=== PATIENT | male | born 1965 | race African-American/Black ===

== ENCOUNTER 2016-12-29 21:14 | Inpatient (IN) | payer OTHER ==
[~2016-12-29] VITALS: Ht 175.3 cm; Wt 146.5 kg
[~2016-12-29 21:14] MED LIST: ALBU18HF2 IH; ALLO300T2 PO; ATOR40TA70 PO; CHOL20004 PO; COLC0.6T66 PO; FLUT1DIS INH; FURO-151 PO; IPRA0.2S51 NEB; LISI-604 PO; MAGN500C4 PO; MONT10TA24 PO; OMEP20CA10 PO; P20 PO
[2016-12-29] MEDS ORDERED: METHYLPREDNISOLONE SOD SUCC 125 MG/2 ML VIAL IV STA (21:35)
[2016-12-29] MEDS ORDERED: ASPIRIN 81MG TABLET PO STA (21:35)
[2016-12-29] MEDS ORDERED: FUROSEMIDE 40MG/4ML VIAL IV STA (21:35)
[2016-12-29] MEDS ORDERED: ONDANSETRON HCL 4MG/2ML VIAL IV STA (21:35)
[2016-12-29] MEDS ORDERED: MORPHINE SULFATE 4 MG/ML CPJ (NOT FOR IM USE) IV STA (21:35)
[2016-12-29] MEDS ORDERED: CEFTRIAXONE 1 G PREMIX 50 ML IV ONE (21:45)
[2016-12-29] MEDS ORDERED: AZITHROMYCIN 500 MG in DEXT 5% WATER 250 ML IV SCH (21:45)
[2016-12-29] MEDS ORDERED: IPRATROPIUM/ALBUTEROL 0.5-3(2.5)MG/3ML NEB HHN ONE (21:45)
[2016-12-29 22:38] LABS: HEMATOCRIT. 37.3 % (42.0-52.0); HEMOGLOBIN. 11.9 g/dL (14.0-18.0); MEAN CORPUSCULAR HEMOGLOBIN 26.2 pg (28.0-32.0); MEAN PLATELET VOLUME 9.4 fl (7.4-10.4); PLATELET 212 x1000/uL (130-400); RED BLOOD CELL COUNT 4.55 mill/uL (4.7-6.1); RED CELL DISTRIBUTION WIDTH 20.7 % (11.6-14.6)
[2016-12-29 22:47] LABS: CARBON DIOXIDE 26 mEq/L (21-32); CHLORIDE 106 mEq/L (98-107)
[2016-12-29 22:55] LABS: CREATINE KINASE 394 IU/L (39-308); TROPONIN I 0.09 ng/mL (0.00-0.04)
[2016-12-29 22:58] LABS: D-DIMER 0.42 mg/L FEU (<0.50); INR 1.4; PARTIAL THROMBOPLASTIN TIME 29.6 sec (24.0-34.0); PLATELET ESTIMATE NORMAL; PROTHROMBIN TIME 14.2 sec
[2016-12-29 23:21] LABS: CLARITY URINE CLEAR (CLEAR); COLOR URINE YELLOW (YELLOW); GLUCOSE URINE NEGATIVE (NEGATIVE); KETONES URINE NEGATIVE (NEGATIVE); LEUKOCYTE ESTERASE URINE NEGATIVE (NEGATIVE); NITRITE URINE NEGATIVE (NEGATIVE); OCCULT BLOOD URINE NEGATIVE (NEGATIVE); PROTEIN URINE NEGATIVE (NEGATIVE); UROBILINOGEN URINE 0.2 E.U./dL (0.2-1.0)
[2016-12-30] VITALS (7 sets, daily range): BP systolic 112–158; BP diastolic 75–88
[2016-12-30] MEDS: METHYLPREDNISOLONE SOD SUCC 40 MG/ML VIAL IV SCH ×2 (02:21→09:48)
[2016-12-30] MEDS ORDERED: LEVOFLOXACIN 500MG PREMIX 100 ML IV SCH (03:00)
[2016-12-30] MEDS: IPRATROPIUM/ALBUTEROL 0.5-3(2.5)MG/3ML NEB HHN SCH ×3 (04:39→11:52)
[2016-12-30] MEDS ORDERED: ENOXAPARIN 40MG/0.4ML SYR SUBCUT SCH (09:00)
== END 2016-12-30 16:26 | disposition short-term general hospital (02) | DRG 194 ==
LOC: ER 21:46 → 7WST 23:25 → EDBEDREQ 23:32 → ENRESERV 23:46
PROVIDERS: ADMIT Internal Medicine; ATTEND Internal Medicine
PROC: 5A09357 Assistance with Respiratory Ventilation, Less than 24 Consecutive Hours, Continuous Positive Airway Pressure (ICD-10-PCS; principal; 2016-12-30)
DX: I11.0 Hypertensive heart disease with heart failure (principal); J18.9 Pneumonia, unspecified organism; I27.2 Other secondary pulmonary hypertension; Z68.42 Body mass index [BMI] 45.0-49.9, adult; I42.9 Cardiomyopathy, unspecified; J44.0 Chronic obstructive pulmonary disease with (acute) lower respiratory infection; E66.01 Morbid (severe) obesity due to excess calories; I48.91 Unspecified atrial fibrillation; I50.23 Acute on chronic systolic (congestive) heart failure; E78.00 Pure hypercholesterolemia, unspecified; G47.33 Obstructive sleep apnea (adult) (pediatric); J44.1 Chronic obstructive pulmonary disease with (acute) exacerbation; E11.9 Type 2 diabetes mellitus without complications; K21.9 Gastro-esophageal reflux disease without esophagitis; M10.9 Gout, unspecified; N28.9 Disorder of kidney and ureter, unspecified; Z82.49 Family history of ischemic heart disease and other diseases of the circulatory system; Z87.01 Personal history of pneumonia (recurrent)
CPT/HCPCS: 36415; 71010; 80053; 81003; 82550; 83605; 83690; 83880; 84443; 84484; 85025; 85379; 85610; 85730; 87040; 93005; 93970; J0456; J0696; J1650; J1940; J1956; J2270; J2405; J2920; J2930; J7050; J7060; J7620

== ENCOUNTER 2017-03-06 23:48 | Inpatient (IN) | payer MEDICAID ==
[~2017-03-06] VITALS: Ht 167.6 cm; Wt 142.9 kg
[~2017-03-06 23:48] MED LIST changes: +FURO80TA87 PO; -P20 PO; +POTA20TA82 PO; +TRAM50TA3 PO; +TRAM50TA73 PO
[2017-03-07] VITALS (10 sets, daily range): BP systolic 128–161; BP diastolic 64–91
[2017-03-07] MEDS ORDERED: ONDANSETRON HCL 4MG/2ML VIAL IV STA (00:02)
[2017-03-07] MEDS ORDERED: MORPHINE SULFATE 4 MG/ML CPJ (NOT FOR IM USE) IV STA (00:02)
[2017-03-07] MEDS ORDERED: KETOROLAC 30MG/ML VIAL IV STA (00:06)
[2017-03-07] MEDS ORDERED: ASPIRIN 81MG TABLET PO ONE (00:15)
[2017-03-07 00:34] LABS: HEMATOCRIT. 30.1 % (42.0-52.0); HEMOGLOBIN. 9.5 g/dL (14.0-18.0); MEAN CORPUSCULAR HEMOGLOBIN 26.9 pg (28.0-32.0); MEAN CORPUSCULAR VOLUME 84.9 fL (80.0-94.0); MEAN PLATELET VOLUME 7.7 fl (7.4-10.4); PLATELET 264 x1000/uL (130-400); RED BLOOD CELL COUNT 3.55 mill/uL (4.7-6.1); RED CELL DISTRIBUTION WIDTH 21.2 % (11.6-14.6)
[2017-03-07 00:45] LABS: INR 1.4; PARTIAL THROMBOPLASTIN TIME 29.8 sec (23.4-31.0); PROTHROMBIN TIME 14.2 sec (9.4-11.6)
[2017-03-07 00:51] LABS: CARBON DIOXIDE 34 mEq/L (21-32); CHLORIDE 103 mEq/L (98-107); ETHANOL BLOOD < 10 mg/dL; TROPONIN I 0.08 ng/mL (0.00-0.04)
[2017-03-07 04:03] LABS: GLUCOSE URINE NEGATIVE (NEGATIVE); KETONES URINE NEGATIVE (NEGATIVE); LEUKOCYTE ESTERASE URINE NEGATIVE (NEGATIVE); NITRITE URINE NEGATIVE (NEGATIVE); OCCULT BLOOD URINE NEGATIVE (NEGATIVE); PH URINE 5.5 (4.5-8.0); PROTEIN URINE NEGATIVE (NEGATIVE); SPECIFIC GRAVITY URINE 1.012 (1.005-1.030)
[2017-03-07 04:11] LABS: CLARITY URINE CLEAR (CLEAR); COLOR URINE YELLOW (YELLOW)
[2017-03-07 05:45] LABS: *AMPHETAMINES SCREEN URINE NEGATIVE (NEGATIVE); *BARBITURATES SCREEN URINE NEGATIVE (NEGATIVE); *BENZODIAZEPINES SCREEN URINE NEGATIVE (NEGATIVE); *COCAINE SCREEN URINE NEGATIVE (NEGATIVE); CANNABINOID URINE SCREEN NEGATIVE (NEGATIVE); METHADONE URINE SCREEN NEGATIVE (NEGATIVE); OPIATES URINE SCREEN PRESUMTIVE POSITIVE (NEGATIVE); PHENCYCLIDINE URINE SCREEN NEGATIVE (NEGATIVE)
[2017-03-07 07:25] LABS: PLATELET ESTIMATE NORMAL
[2017-03-07] MEDS ORDERED: LISINOPRIL 2.5MG TABLET PO SCH (07:45)
[2017-03-07 08:14] LABS: BG BASE EXCESS 4.9 mmol/L (-2.0-2.0); BG CARBOXYHEMOGLOBIN 0.2 % (0.5-1.5); BG DEOXYHEMOGLOBIN 7.7 % (0.0-5.0); BG FRACTION INSPIRED OXYGEN 32; BG HCO3 ACT 30.8 mmol/L (22.0-26.0); BG METHEMOGLOBIN 0.3 % (0.0-1.5); BG OXYGEN SATURATION 92.3 % (92.0-98.5); BG OXYHEMOGLOBIN 91.8 % (94.0-97.0); BG PO2 69.9 mmHg (75.0-100.0); BG SAMPLE SITE LEFT RADIAL; BG TOTAL HEMOGLOBIN 10.7 g/dL (12.0-18.0); BG VENT MODE NASAL CANNULA
[2017-03-07] MEDS: ENOXAPARIN 150MG/ML SYR SUBCUT SCH ×2 (09:03→21:00)
[2017-03-07] MEDS: LISINOPRIL 20MG TABLET PO SCH ×2 (09:03→20:59)
[2017-03-07 09:34] LABS: T4 FREE 1.63 ng/dL (0.76-1.46)
[2017-03-07] MEDS ORDERED: MORPHINE SULFATE 2 MG/ML CPJ (NOT FOR IM USE) IV PRN (10:15)
[2017-03-07] MEDS: MORPHINE SULFATE 4 MG/ML CPJ (NOT FOR IM USE) IV PRN ×2 (10:21→14:28)
[2017-03-07] MEDS: ASPIRIN 81MG TABLET PO SCH (10:22)
[2017-03-07 16:00] LABS: CREATINE KINASE MB FRACTION 2.6 ng/mL (0.5-3.6); TROPONIN I 0.08 ng/mL (0.00-0.04)
[2017-03-07] MEDS ORDERED: FUROSEMIDE 40MG/4ML VIAL IVP SCH (16:15)
[2017-03-07] MEDS ORDERED: IPRATROPIUM/ALBUTEROL 0.5-3(2.5)MG/3ML NEB HHN PRN (16:15)
[2017-03-07] MEDS ORDERED: TRAMADOL 50MG TABLET PO PRN (16:45)
[2017-03-07] MEDS ORDERED: TRAMADOL 50MG TABLET PO SCH (16:45)
[2017-03-07] MEDS ORDERED: COLCHICINE 0.6MG TABLET PO PRN (17:15)
[2017-03-07] MEDS ORDERED: REGADENOSON 0.4 MG/5 ML IV NR (17:20)
[2017-03-07] MEDS: POTASSIUM CHLORIDE 20MEQ TABLET SR PO SCH (17:35)
[2017-03-07] MEDS: FUROSEMIDE 40MG TABLET PO SCH (17:35)
[2017-03-07] MEDS: ALLOPURINOL 300 MG TABLET PO SCH (17:35)
[2017-03-07] MEDS: MONTELUKAST SODIUM 10MG TABLET PO SCH (17:35)
[2017-03-07] MEDS: LEVOFLOXACIN 750MG PREMIX 150 ML IV SCH (18:08)
[2017-03-07] MEDS: ATORVASTATIN CALCIUM 40MG TABLET PO SCH (20:56)
[2017-03-07] MEDS: IPRATROPIUM/ALBUTEROL 0.5-3(2.5)MG/3ML NEB HHN SCH ×2 (21:11→23:38)
[2017-03-07] MEDS: BUDESONIDE 0.5MG/2ML NEB HHN SCH (21:11)
[2017-03-08] VITALS (12 sets, daily range): BP systolic 119–158; BP diastolic 65–114
[2017-03-08] LABS: TROPONIN I 0.07 ng/mL (0.00-0.04)
[2017-03-08] MEDS: MORPHINE SULFATE 4 MG/ML CPJ (NOT FOR IM USE) IV PRN ×3 (00:19→20:29)
[2017-03-08] MEDS: IPRATROPIUM/ALBUTEROL 0.5-3(2.5)MG/3ML NEB HHN SCH ×5 (04:07→21:14)
[2017-03-08] MEDS: OMEPRAZOLE 20MG CAPSULE EXTENDED RELEASE PO SCH (05:55)
[2017-03-08] MEDS: FUROSEMIDE 40MG TABLET PO SCH ×2 (05:55→17:17)
[2017-03-08 08:04] LABS: CREATINE KINASE MB FRACTION 1.3 ng/mL (0.5-3.6); TROPONIN I 0.06 ng/mL (0.00-0.04)
[2017-03-08] MEDS: BUDESONIDE 0.5MG/2ML NEB HHN SCH ×2 (08:07→21:14)
[2017-03-08 08:43] LABS: BASOPHILS % 0.5 % (0.0-2.0); EOSINOPHILS % 0.3 % (0.0-5.0); HEMATOCRIT. 30.4 % (42.0-52.0); HEMOGLOBIN. 9.6 g/dL (14.0-18.0); LYMPHOCYTES % 9.2 % (20.0-50.0); MEAN CORPUSCULAR VOLUME 85.8 fL (80.0-94.0); MONOCYTES % 9.2 % (2.0-8.0); NEUTROPHILS % 80.8 % (40.0-76.0); PLATELET 241 x1000/uL (130-400); RED BLOOD CELL COUNT 3.55 mill/uL (4.7-6.1)
[2017-03-08] MEDS: ASPIRIN 81MG TABLET PO SCH (09:00)
[2017-03-08] MEDS: ENOXAPARIN 150MG/ML SYR SUBCUT SCH ×2 (09:00→20:42)
[2017-03-08] MEDS: ALLOPURINOL 300 MG TABLET PO SCH (09:00)
[2017-03-08] MEDS: POTASSIUM CHLORIDE 20MEQ TABLET SR PO SCH (09:00)
[2017-03-08] MEDS: LISINOPRIL 20MG TABLET PO SCH ×3 (09:00→20:28)
[2017-03-08 09:02] LABS: CARBON DIOXIDE 31 mEq/L (21-32); CHLORIDE 105 mEq/L (98-107)
[2017-03-08] MEDS ORDERED: REGADENOSON 0.4 MG/5 ML IV ONE (11:47)
[2017-03-08] MEDS ORDERED: SIMETHICONE 80MG TABLET CHEW PO PRN (14:45)
[2017-03-08] MEDS: MONTELUKAST SODIUM 10MG TABLET PO SCH (17:17)
[2017-03-08] MEDS: LEVOFLOXACIN 750MG PREMIX 150 ML IV SCH (17:17)
[2017-03-08] MEDS: ATORVASTATIN CALCIUM 40MG TABLET PO SCH (20:28)
[2017-03-09] VITALS (12 sets, daily range): BP systolic 112–145; BP diastolic 38–78
[2017-03-09] MEDS: IPRATROPIUM/ALBUTEROL 0.5-3(2.5)MG/3ML NEB HHN SCH ×6 (00:55→20:23)
[2017-03-09] MEDS: MORPHINE SULFATE 4 MG/ML CPJ (NOT FOR IM USE) IV PRN ×3 (01:02→23:40)
[2017-03-09] MEDS: FUROSEMIDE 40MG TABLET PO SCH ×2 (06:28→17:09)
[2017-03-09] MEDS: OMEPRAZOLE 20MG CAPSULE EXTENDED RELEASE PO SCH (06:33)
[2017-03-09] MEDS: BUDESONIDE 0.5MG/2ML NEB HHN SCH ×2 (08:44→20:23)
[2017-03-09] MEDS: LISINOPRIL 20MG TABLET PO SCH ×3 (09:00→21:42)
[2017-03-09] MEDS: ENOXAPARIN 150MG/ML SYR SUBCUT SCH ×2 (09:00→21:42)
[2017-03-09] MEDS: POTASSIUM CHLORIDE 20MEQ TABLET SR PO SCH (09:02)
[2017-03-09] MEDS: ALLOPURINOL 300 MG TABLET PO SCH (09:02)
[2017-03-09] MEDS: ASPIRIN 81MG TABLET PO SCH (09:02)
[2017-03-09] MEDS ORDERED: PREDNISONE 10MG TABLET PO SCH (13:00)
[2017-03-09 13:04] LABS: BG BASE EXCESS 7.7 mmol/L (-2.0-2.0); BG CARBOXYHEMOGLOBIN 0.7 % (0.5-1.5); BG DEOXYHEMOGLOBIN 4.4 % (0.0-5.0); BG HCO3 ACT 33.3 mmol/L (22.0-26.0); BG METHEMOGLOBIN 0.3 % (0.0-1.5); BG OXYGEN SATURATION 95.6 % (92.0-98.5); BG OXYHEMOGLOBIN 94.6 % (94.0-97.0); BG PCO2 52.1 mmHg (35.0-45.0); BG PH 7.424 (7.350-7.450); BG PO2 80.7 mmHg (75.0-100.0); BG SAMPLE SITE RIGHT RADIAL; BG TOTAL HEMOGLOBIN 10.6 g/dL (12.0-18.0); BG VENT MODE MASK - VENTI
[2017-03-09] MEDS: OXYMETAZOLINE HCL NASAL SPRAY 15ML BOTHNSTRLS SCH ×2 (14:28→23:34)
[2017-03-09] MEDS: PHENYLEPHRINE HCL 1% 15 ML NASAL SPRAY BOTHNSTRLS SCH ×3 (16:53→23:36)
[2017-03-09] MEDS: MONTELUKAST SODIUM 10MG TABLET PO SCH (17:09)
[2017-03-09] MEDS: LEVOFLOXACIN 750MG PREMIX 150 ML IV SCH (17:10)
[2017-03-09] MEDS: ATORVASTATIN CALCIUM 40MG TABLET PO SCH (21:42)
[2017-03-10] VITALS (10 sets, daily range): BP systolic 122–138; BP diastolic 71–78
[2017-03-10] MEDS: IPRATROPIUM/ALBUTEROL 0.5-3(2.5)MG/3ML NEB HHN SCH ×5 (00:31→16:42)
[2017-03-10] MEDS: PHENYLEPHRINE HCL 1% 15 ML NASAL SPRAY BOTHNSTRLS SCH (04:00)
[2017-03-10] MEDS: OMEPRAZOLE 20MG CAPSULE EXTENDED RELEASE PO SCH (06:33)
[2017-03-10] MEDS: FUROSEMIDE 40MG TABLET PO SCH ×2 (06:33→17:09)
[2017-03-10] MEDS ORDERED: PREDNISONE 10MG TABLET PO SCH (08:00)
[2017-03-10] MEDS: LISINOPRIL 20MG TABLET PO SCH (08:20)
[2017-03-10] MEDS: ALLOPURINOL 300 MG TABLET PO SCH (08:20)
[2017-03-10] MEDS: POTASSIUM CHLORIDE 20MEQ TABLET SR PO SCH (08:20)
[2017-03-10] MEDS: ASPIRIN 81MG TABLET PO SCH (08:21)
[2017-03-10] MEDS: OXYMETAZOLINE HCL NASAL SPRAY 15ML BOTHNSTRLS SCH (08:21)
[2017-03-10] MEDS: ENOXAPARIN 150MG/ML SYR SUBCUT SCH (08:22)
[2017-03-10] MEDS: BUDESONIDE 0.5MG/2ML NEB HHN SCH (08:34)
[2017-03-10] MEDS: MONTELUKAST SODIUM 10MG TABLET PO SCH (17:09)
[2017-03-11] MEDS ORDERED: FAMOTIDINE 20MG TABLET PO SCH (07:30)
[2017-03-11] MEDS ORDERED: LEVOFLOXACIN 250MG TABLET PO SCH (23:59)
== END 2017-03-10 18:55 | disposition home or self-care (01) | DRG 720 ==
LOC: ER 23:48 → ENRESERV 03-07 03:40 → CANRESERV 03-07 03:40 → 5EST 03-07 03:47 → EDBEDREQSVC 03-07 04:04 → EDBEDREQ 03-07 04:04 → ENRESERV 03-07 04:17
PROVIDERS: ADMIT Family Medicine; ATTEND Family Medicine
PROC: 5A09457 Assistance with Respiratory Ventilation, 24-96 Consecutive Hours, Continuous Positive Airway Pressure (ICD-10-PCS; principal; 2017-03-07)
DX: A41.9 Sepsis, unspecified organism (principal); J96.00 Acute respiratory failure, unspecified whether with hypoxia or hypercapnia; I50.33 Acute on chronic diastolic (congestive) heart failure; E43 Unspecified severe protein-calorie malnutrition; J18.1 Lobar pneumonia, unspecified organism; I27.2 Other secondary pulmonary hypertension; Z68.42 Body mass index [BMI] 45.0-49.9, adult; I13.0 Hypertensive heart and chronic kidney disease with heart failure and stage 1 through stage 4 chronic kidney disease, or unspecified chronic kidney disease; E11.22 Type 2 diabetes mellitus with diabetic chronic kidney disease; J44.0 Chronic obstructive pulmonary disease with (acute) lower respiratory infection; E66.01 Morbid (severe) obesity due to excess calories; N18.9 Chronic kidney disease, unspecified; E78.00 Pure hypercholesterolemia, unspecified; E78.5 Hyperlipidemia, unspecified; G47.30 Sleep apnea, unspecified; I48.2 Chronic atrial fibrillation; Z82.49 Family history of ischemic heart disease and other diseases of the circulatory system; Z95.0 Presence of cardiac pacemaker; Z79.899 Other long term (current) drug therapy; Z72.89 Other problems related to lifestyle
CPT/HCPCS: 36415; 36600; 71010; 76770; 78452; 78580; 80053; 80061; 80305; 81003; 82375; 82550; 82553; 82805; 83036; 83690; 83880; 84439; 84443; 84484; 85025; 85379; 85610; 85730; 93005; 93017; 93306; 93970; 94640; 94660; 96374; 96375; 97110; 97162; 99285; A9500; C1893; G0482; J1650; J1885; J1956; J2270; J2405; J2785; J7050; J7512; J7620; J7626

== ENCOUNTER 2018-02-24 12:37 | Emergency (ER) | payer MEDICARE, MEDICAID ==
[~2018-02-24] VITALS: Ht 175.3 cm; Wt 136.0 kg
[~2018-02-24 12:37] MED LIST changes: +APIX5TAB PO; -COLC0.6T66 PO; -FURO80TA87 PO; -MAGN500C4 PO; +METF500T6 PO; -POTA20TA82 PO; +SPIR50TA5 PO; +TAMS-11 PO; -TRAM50TA3 PO; -TRAM50TA73 PO; +TRAM50TA94 PO
[2018-02-24 12:41] VITALS: BP 138/82
[2018-02-24] MEDS ORDERED: TRANEXAMIC ACID 1,000 MG/10 ML IV ONE (17:00)
== END 2018-02-24 19:04 | disposition home or self-care (01) ==
LOC: ER 12:37
DX: R04.0 Epistaxis (principal); E11.9 Type 2 diabetes mellitus without complications; E78.00 Pure hypercholesterolemia, unspecified; I11.0 Hypertensive heart disease with heart failure; I50.9 Heart failure, unspecified; I48.91 Unspecified atrial fibrillation; J44.9 Chronic obstructive pulmonary disease, unspecified; J45.909 Unspecified asthma, uncomplicated; Z79.899 Other long term (current) drug therapy
CPT/HCPCS: 30901; 96374; 99284

== ENCOUNTER 2018-03-24 15:29 | Inpatient (IN) | payer MEDICARE, MEDICAID ==
[~2018-03-24] VITALS: Ht 175.3 cm; Wt 130.2 kg
[~2018-03-24 15:29] MED LIST changes: +METF-414 PO; -METF500T6 PO
[2018-03-24 17:34] LABS: HEMATOCRIT. 33.9 % (42.0-52.0); HEMOGLOBIN. 11.1 g/dL (14.0-18.0); MEAN CORPUSCULAR HEMOGLOBIN 30.3 pg (28.0-32.0); MEAN CORPUSCULAR VOLUME 92.5 fL (80.0-94.0); MEAN PLATELET VOLUME 10.3 fl (7.4-10.4); PLATELET 246 x1000/uL (130-400); RED BLOOD CELL COUNT 3.67 mill/uL (4.7-6.1); RED CELL DISTRIBUTION WIDTH 15.9 % (11.6-14.6)
[2018-03-24 17:41] LABS: CHLORIDE 103 mEq/L (98-107)
[2018-03-24 18:46] LABS: CLARITY URINE CLEAR (CLEAR); COLOR URINE YELLOW (YELLOW); KETONES URINE NEGATIVE (NEGATIVE); LEUKOCYTE ESTERASE URINE NEGATIVE (NEGATIVE); NITRITE URINE NEGATIVE (NEGATIVE); OCCULT BLOOD URINE NEGATIVE (NEGATIVE); PROTEIN URINE NEGATIVE (NEGATIVE); SPECIFIC GRAVITY URINE 1.007 (1.005-1.030); UROBILINOGEN URINE 0.2 E.U./dL (0.2-1.0)
[2018-03-24 18:54] LABS: PLATELET ESTIMATE NORMAL
[2018-03-24] MEDS ORDERED: SODIUM CHLORIDE 0.9% 1,000 ML IV ONE (19:00)
[2018-03-24] MEDS ORDERED: SODIUM POLYSTYRENE SULFONATE 15 G/60 ML BOT PO ONE (19:00)
[2018-03-24 20:28] LABS: INR 1.1; PROTHROMBIN TIME 11.4 sec (9.1-11.1)
[2018-03-24] MEDS ORDERED: DOCUSATE SODIUM 100MG CAPSULE PO PRN (21:45)
[2018-03-24] MEDS ORDERED: CLONIDINE 0.1MG TABLET PO PRN (21:45)
[2018-03-24] MEDS ORDERED: HYDROCODONE/ACETAMINOPHEN 5/325MG TABLET PO PRN (21:45)
[2018-03-24] MEDS ORDERED: GUAIFENESIN 200MG/10ML SUGAR FREE UDC PO PRN (21:45)
[2018-03-24] MEDS ORDERED: ACETAMINOPHEN 325MG TABLET PO PRN (21:45)
[2018-03-24] MEDS ORDERED: MAGNESIUM/ALUMINUM HYDROXIDE/SIMETHICONE 30ML UDC PO PRN (21:45)
[2018-03-24] MEDS ORDERED: ONDANSETRON HCL 4MG/2ML INJ IV PRN (21:45)
[2018-03-25 01:00] VITALS: BP 140/78
[2018-03-25] MEDS ORDERED: DEXTROSE 50% WATER 50ML SYRINGE IV PRN (02:15)
[2018-03-25 06:01] VITALS: BP 107/57
[2018-03-25] MEDS: INSULIN LISPRO 100 UNITS/ML SUBCUT SCH ×4 (06:23→20:29)
[2018-03-25] MEDS: BLOOD SUGAR DIAGNOSTIC STRIP TEST SCH ×4 (06:23→20:29)
[2018-03-25 07:51] LABS: BASOPHILS % 0.5 % (0.0-2.0); EOSINOPHILS % 0.4 % (0.0-5.0); HEMATOCRIT. 30.7 % (42.0-52.0); HEMOGLOBIN. 10.2 g/dL (14.0-18.0); LYMPHOCYTES % 9.4 % (20.0-50.0); MEAN CORPUSCULAR HEMOGLOBIN 30.9 pg (28.0-32.0); MEAN CORPUSCULAR VOLUME 92.7 fL (80.0-94.0); MONOCYTES % 7.2 % (2.0-8.0); NEUTROPHILS % 82.5 % (40.0-76.0); PLATELET 217 x1000/uL (130-400); RED BLOOD CELL COUNT 3.32 mill/uL (4.7-6.1); RED CELL DISTRIBUTION WIDTH 15.5 % (11.6-14.6)
[2018-03-25 08:00] VITALS: BP 145/74
[2018-03-25 09:00] LABS: CHLORIDE 103 mEq/L (98-107)
[2018-03-25] MEDS ORDERED: IPRATROPIUM/ALBUTEROL 0.5-3(2.5)MG/3ML NEB HHN PRN (09:00)
[2018-03-25] MEDS: AMLODIPINE 10MG TABLET PO SCH (09:55)
[2018-03-25] MEDS: TAMSULOSIN HCL 0.4MG SR CAPSULE PO SCH (09:55)
[2018-03-25] MEDS: OMEPRAZOLE 20MG CAPSULE EXTENDED RELEASE PO SCH (09:55)
[2018-03-25] MEDS: APIXABAN 5 MG TABLET PO SCH ×2 (09:55→19:07)
[2018-03-25] MEDS: SODIUM CHLORIDE 0.45% 1,000 ML IV SCH (09:56)
[2018-03-25 12:00] VITALS: BP_SYST 108; BP_SYST 145; BP_DIAS 54; BP_DIAS 74
[2018-03-25] MEDS: IPRATROPIUM/ALBUTEROL 0.5-3(2.5)MG/3ML NEB HHN SCH ×2 (12:00→20:52)
[2018-03-25 16:00] VITALS: BP 105/70
[2018-03-25 18:24] LABS: PHOSPHORUS 5.1 mg/dL (2.5-4.9)
[2018-03-25 19:06] LABS: HEPATITIS B SURFACE ANTIGEN NEGATIVE
[2018-03-25] MEDS: MONTELUKAST SODIUM 10MG TABLET PO SCH (19:07)
[2018-03-25 19:34] LABS: HEPATITIS B CORE AB IGM NEGATIVE
[2018-03-25 19:36] LABS: HEPATITIS A AB IGM NEGATIVE (NEGATIVE)
[2018-03-25 20:00] VITALS: BP 104/51
[2018-03-25] MEDS: ATORVASTATIN CALCIUM 40MG TABLET PO SCH (20:29)
[2018-03-26] VITALS: BP 113/56
[2018-03-26] MEDS ORDERED: SODIUM CHLORIDE 0.45% 1,000 ML IV SCH (01:00)
[2018-03-26] MEDS: SODIUM CHLORIDE 0.45% 1,000 ML IV SCH (01:41)
[2018-03-26] MEDS: IPRATROPIUM/ALBUTEROL 0.5-3(2.5)MG/3ML NEB HHN SCH ×4 (01:43→22:38)
[2018-03-26 04:00] VITALS: BP 111/61
[2018-03-26] MEDS: INSULIN LISPRO 100 UNITS/ML SUBCUT SCH ×4 (06:32→20:24)
[2018-03-26] MEDS: BLOOD SUGAR DIAGNOSTIC STRIP TEST SCH ×4 (06:32→20:24)
[2018-03-26] MEDS: OMEPRAZOLE 20MG CAPSULE EXTENDED RELEASE PO SCH (06:32)
[2018-03-26 08:07] VITALS: BP 99/61
[2018-03-26] MEDS: APIXABAN 5 MG TABLET PO SCH ×2 (09:00→16:16)
[2018-03-26] MEDS: AMLODIPINE 10MG TABLET PO SCH ×2 (09:00→12:06)
[2018-03-26] MEDS: TAMSULOSIN HCL 0.4MG SR CAPSULE PO SCH ×2 (09:00→12:06)
[2018-03-26] MEDS ORDERED: TAMSULOSIN HCL 0.4MG SR CAPSULE PO SCH (10:15)
[2018-03-26] MEDS ORDERED: MONTELUKAST SODIUM 10MG TABLET PO SCH (10:15)
[2018-03-26] MEDS: OXYMETAZOLINE HCL NASAL SPRAY 15ML BOTHNSTRLS SCH ×2 (10:50→20:25)
[2018-03-26] MEDS: SPIRONOLACTONE 50MG TABLET PO SCH ×2 (10:50→16:16)
[2018-03-26 12:00] VITALS: BP 148/91
[2018-03-26 13:06] LABS: BASOPHILS % 0.9 % (0.0-2.0); EOSINOPHILS % 3.3 % (0.0-5.0); HEMATOCRIT. 31.8 % (42.0-52.0); HEMOGLOBIN. 10.5 g/dL (14.0-18.0); LYMPHOCYTES % 13.4 % (20.0-50.0); MEAN CORPUSCULAR HEMOGLOBIN 30.5 pg (28.0-32.0); MEAN CORPUSCULAR VOLUME 92.6 fL (80.0-94.0); MONOCYTES % 9.7 % (2.0-8.0); NEUTROPHILS % 72.7 % (40.0-76.0); PLATELET 195 x1000/uL (130-400); RED BLOOD CELL COUNT 3.44 mill/uL (4.7-6.1); RED CELL DISTRIBUTION WIDTH 15.6 % (11.6-14.6)
[2018-03-26] MEDS: MONTELUKAST SODIUM 10MG TABLET PO SCH (16:16)
[2018-03-26 16:17] VITALS: BP 102/60
[2018-03-26] MEDS: SPIRONOLACTONE 25MG TABLET PO SCH (16:56)
[2018-03-26 20:00] VITALS: BP 127/57
[2018-03-26] MEDS: ATORVASTATIN CALCIUM 40MG TABLET PO SCH (20:25)
[2018-03-26] MEDS ORDERED: ATORVASTATIN CALCIUM 40MG TABLET PO SCH (21:00)
[2018-03-27] VITALS: BP 125/64
[2018-03-27] MEDS: IPRATROPIUM/ALBUTEROL 0.5-3(2.5)MG/3ML NEB HHN SCH ×3 (02:29→22:00)
[2018-03-27 04:00] VITALS: BP 121/66
[2018-03-27] MEDS: SPIRONOLACTONE 25MG TABLET PO SCH ×2 (06:32→17:09)
[2018-03-27] MEDS: OMEPRAZOLE 20MG CAPSULE EXTENDED RELEASE PO SCH (06:32)
[2018-03-27] MEDS: BLOOD SUGAR DIAGNOSTIC STRIP TEST SCH ×4 (06:33→20:59)
[2018-03-27] MEDS: INSULIN LISPRO 100 UNITS/ML SUBCUT SCH ×4 (06:45→20:59)
[2018-03-27 07:35] LABS: BASOPHILS % 0.6 % (0.0-2.0); EOSINOPHILS % 3.6 % (0.0-5.0); HEMATOCRIT. 30.8 % (42.0-52.0); HEMOGLOBIN. 10.2 g/dL (14.0-18.0); LYMPHOCYTES % 15.7 % (20.0-50.0); MEAN CORPUSCULAR HEMOGLOBIN 30.4 pg (28.0-32.0); MEAN PLATELET VOLUME 9.9 fl (7.4-10.4); MONOCYTES % 9.7 % (2.0-8.0); NEUTROPHILS % 70.4 % (40.0-76.0); PLATELET 212 x1000/uL (130-400); RED BLOOD CELL COUNT 3.35 mill/uL (4.7-6.1); RED CELL DISTRIBUTION WIDTH 15.5 % (11.6-14.6)
[2018-03-27 08:00] VITALS: BP 99/48
[2018-03-27 08:14] LABS: CHLORIDE 105 mEq/L (98-107)
[2018-03-27] MEDS: APIXABAN 5 MG TABLET PO SCH ×2 (09:01→17:09)
[2018-03-27] MEDS: OXYMETAZOLINE HCL NASAL SPRAY 15ML BOTHNSTRLS SCH ×2 (09:01→20:59)
[2018-03-27] MEDS: TAMSULOSIN HCL 0.4MG SR CAPSULE PO SCH (11:55)
[2018-03-27] MEDS: AMLODIPINE 10MG TABLET PO SCH (11:56)
[2018-03-27 12:00] VITALS: BP 140/85
[2018-03-27 16:00] VITALS: BP 105/60
[2018-03-27] MEDS: MONTELUKAST SODIUM 10MG TABLET PO SCH (17:09)
[2018-03-27 20:00] VITALS: BP 128/77
[2018-03-27] MEDS: ATORVASTATIN CALCIUM 40MG TABLET PO SCH (20:58)
[2018-03-28] VITALS (7 sets, daily range): BP systolic 105–121; BP diastolic 63–78
[2018-03-28] MEDS: OMEPRAZOLE 20MG CAPSULE EXTENDED RELEASE PO SCH (06:27)
[2018-03-28] MEDS: INSULIN LISPRO 100 UNITS/ML SUBCUT SCH ×4 (06:28→21:00)
[2018-03-28] MEDS: BLOOD SUGAR DIAGNOSTIC STRIP TEST SCH ×4 (06:28→21:00)
[2018-03-28] MEDS: SPIRONOLACTONE 25MG TABLET PO SCH ×2 (06:28→17:21)
[2018-03-28 06:38] LABS: BASOPHILS % 0.5 % (0.0-2.0); HEMATOCRIT. 31.5 % (42.0-52.0); HEMOGLOBIN. 10.6 g/dL (14.0-18.0); MEAN CORPUSCULAR HEMOGLOBIN 30.9 pg (28.0-32.0); MEAN CORPUSCULAR VOLUME 91.7 fL (80.0-94.0); MEAN PLATELET VOLUME 9.4 fl (7.4-10.4); MONOCYTES % 8.1 % (2.0-8.0); NEUTROPHILS % 74.4 % (40.0-76.0); PLATELET 224 x1000/uL (130-400); RED BLOOD CELL COUNT 3.44 mill/uL (4.7-6.1); RED CELL DISTRIBUTION WIDTH 15.3 % (11.6-14.6)
[2018-03-28] MEDS ORDERED: SODIUM POLYSTYRENE SULFONATE 15 G/60 ML BOT PO ONE (08:45)
[2018-03-28] MEDS: AMLODIPINE 10MG TABLET PO SCH (09:00)
[2018-03-28] MEDS: TAMSULOSIN HCL 0.4MG SR CAPSULE PO SCH ×2 (09:00→09:33)
[2018-03-28] MEDS: APIXABAN 5 MG TABLET PO SCH ×2 (09:33→17:23)
[2018-03-28] MEDS: OXYMETAZOLINE HCL NASAL SPRAY 15ML BOTHNSTRLS SCH ×2 (09:34→21:13)
[2018-03-28] MEDS ORDERED: SODIUM POLYSTYRENE SULFONATE 15 G/60 ML BOT PO SCH (10:00)
[2018-03-28] MEDS: MONTELUKAST SODIUM 10MG TABLET PO SCH (17:21)
[2018-03-28] MEDS ORDERED: SODIUM POLYSTYRENE SULFONATE 15 G/60 ML BOT PO NR ×2 (17:54→19:30)
[2018-03-28] MEDS: ATORVASTATIN CALCIUM 40MG TABLET PO SCH (21:15)
== END 2018-03-28 22:15 | disposition home or self-care (01) | DRG 683 ==
LOC: ER 16:56 → 8WST 19:08 → EDBEDREQTM 19:09 → EDBEDREQ 19:09 → ENRESERV 20:57 → SUPCPDRO 21:35
PROVIDERS: ADMIT Hospitalist; ATTEND Hospitalist
DX: N17.9 Acute kidney failure, unspecified (principal); I13.0 Hypertensive heart and chronic kidney disease with heart failure and stage 1 through stage 4 chronic kidney disease, or unspecified chronic kidney disease; Z68.41 Body mass index [BMI] 40.0-44.9, adult; I50.9 Heart failure, unspecified; N18.9 Chronic kidney disease, unspecified; E87.5 Hyperkalemia; E66.01 Morbid (severe) obesity due to excess calories; E11.22 Type 2 diabetes mellitus with diabetic chronic kidney disease; E11.51 Type 2 diabetes mellitus with diabetic peripheral angiopathy without gangrene; E78.00 Pure hypercholesterolemia, unspecified; G47.33 Obstructive sleep apnea (adult) (pediatric); I48.91 Unspecified atrial fibrillation; J44.9 Chronic obstructive pulmonary disease, unspecified; Z82.49 Family history of ischemic heart disease and other diseases of the circulatory system; Z95.0 Presence of cardiac pacemaker; Z79.899 Other long term (current) drug therapy
CPT/HCPCS: 36415; 71045; 76770; 80048; 82962; 83605; 83735; 83970; 84100; 86705; 86709; 86803; 87340; 93005; 93306; 93970; 99285; J7030; J7620

== ENCOUNTER 2018-04-14 04:58 | Inpatient (IN) | payer MEDICARE, MEDICAID ==
[2018-04-14] VITALS (9 sets, daily range): BP systolic 77–118; BP diastolic 35–76
[~2018-04-14] VITALS: Ht 175.3 cm; Wt 132.9 kg
[2018-04-14] MEDS ORDERED: SODIUM CHLORIDE 0.9% 1000ML BAG (SEPSIS BOLUS) IV ONE (05:30)
[2018-04-14 06:08] LABS: HEMATOCRIT. 36.7 % (42.0-52.0); MEAN CORPUSCULAR HEMOGLOBIN 30.3 pg (28.0-32.0); MEAN CORPUSCULAR VOLUME 92.3 fL (80.0-94.0); MEAN PLATELET VOLUME 9.3 fl (7.4-10.4); PLATELET 297 x1000/uL (130-400); RED BLOOD CELL COUNT 3.97 mill/uL (4.7-6.1); RED CELL DISTRIBUTION WIDTH 15.6 % (11.6-14.6)
[2018-04-14 06:13] LABS: INR 1.1; PARTIAL THROMBOPLASTIN TIME 42.9 sec (23.4-31.0); PROTHROMBIN TIME 11.5 sec (9.1-11.1)
[2018-04-14 06:29] LABS: CHLORIDE 93 mEq/L (98-107)
[2018-04-14] MEDS ORDERED: SODIUM POLYSTYRENE SULFONATE 15 G/60 ML BOT PO ONE (07:00)
[2018-04-14] MEDS ORDERED: CALCIUM CHLORIDE 1GM/10ML SYR IV ONE (07:00)
[2018-04-14] MEDS ORDERED: INSULIN REGULAR (HUMULIN R) 300UNITS/3ML IV ONE (07:00)
[2018-04-14] MEDS ORDERED: DEXTROSE 50% WATER 50ML SYRINGE IV ONE (07:00)
[2018-04-14] MEDS ORDERED: SODIUM BICARBONATE 8.4% 1 MEQ/ML 50ML SYR IV ONE ×2 (07:00→08:15)
[2018-04-14 07:03] LABS: PLATELET ESTIMATE NORMAL
[2018-04-14 08:02] LABS: BG BASE EXCESS -12.2 mmol/L (-2.0-2.0); BG CARBOXYHEMOGLOBIN 1.5 % (0.5-1.5); BG DEOXYHEMOGLOBIN 5.9 % (0.0-5.0); BG FRACTION INSPIRED OXYGEN 21; BG HCO3 ACT 14.8 mmol/L (22.0-26.0); BG METHEMOGLOBIN 0.3 % (0.0-1.5); BG OXYHEMOGLOBIN 92.3 % (94.0-97.0); BG PCO2 37.8 mmHg (35.0-45.0); BG PH 7.211 (7.350-7.450); BG SAMPLE SITE RIGHT RADIAL; BG TOTAL HEMOGLOBIN 11.4 g/dL (12.0-18.0); BG VENT MODE ROOM AIR
[2018-04-14] MEDS ORDERED: LIDOCAINE HCL 1% 20ML VIAL (Pyxis) INJ ONE (08:29)
[2018-04-14] MEDS ORDERED: DOPAMINE 400MG PREMIX 250 ML IV ONE (08:30)
[2018-04-14] MEDS ORDERED: FLUT1AER IH (10:58)
[2018-04-14] MEDS ORDERED: PRED10TA PO (10:58)
[2018-04-14] MEDS ORDERED: DEXTROSE 50% WATER 50ML SYRINGE IV PRN (11:00)
[2018-04-14] MEDS ORDERED: ENOXAPARIN 30MG/0.3ML SYR SUBCUT SCH (11:00)
[2018-04-14] MEDS: DOPAMINE 400MG PREMIX 250 ML IV SCH (11:49)
[2018-04-14] MEDS: INSULIN LISPRO 100 UNITS/ML SUBCUT SCH ×3 (12:21→21:00)
[2018-04-14] MEDS: BLOOD SUGAR DIAGNOSTIC STRIP TEST SCH ×3 (12:21→21:00)
[2018-04-14] MEDS: SODIUM CHLORIDE 0.9% 1,000 ML IV SCH (12:36)
[2018-04-14] MEDS ORDERED: LIDOCAINE HCL/PF 1% 2ML VIAL ONE (15:10)
[2018-04-14] MEDS: MIDODRINE HCL 5MG TABLET PO SCH ×2 (16:19→16:22)
[2018-04-14] MEDS: OMEPRAZOLE 20MG CAPSULE EXTENDED RELEASE PO SCH (16:19)
[2018-04-14] MEDS: CEFTRIAXONE 1 G PREMIX 50 ML IV SCH (16:19)
[2018-04-14 17:09] LABS: CLARITY URINE CLEAR (CLEAR); COLOR URINE YELLOW (YELLOW); KETONES URINE NEGATIVE (NEGATIVE); LEUKOCYTE ESTERASE URINE NEGATIVE (NEGATIVE); NITRITE URINE NEGATIVE (NEGATIVE); OCCULT BLOOD URINE 2+ (NEGATIVE); PROTEIN URINE TRACE (NEGATIVE); SPECIFIC GRAVITY URINE 1.008 (1.005-1.030); UROBILINOGEN URINE 0.2 E.U./dL (0.2-1.0)
[2018-04-14] MEDS: MONTELUKAST SODIUM 10MG TABLET PO SCH (17:40)
[2018-04-14] MEDS: APIXABAN 5 MG TABLET PO SCH (17:41)
[2018-04-14] MEDS: ATORVASTATIN CALCIUM 40MG TABLET PO SCH (20:48)
[2018-04-15] VITALS (14 sets, daily range): BP systolic 74–142; BP diastolic 32–78
[2018-04-15] MEDS: HYDROCODONE/ACETAMINOPHEN 5/325MG TABLET PO PRN ×2 (00:58→21:07)
[2018-04-15] MEDS: SODIUM CHLORIDE 0.9% 1,000 ML IV SCH ×3 (04:35→13:36)
[2018-04-15 07:29] LABS: BASOPHILS % 0.3 % (0.0-2.0); EOSINOPHILS % 0.6 % (0.0-5.0); HEMATOCRIT. 32.9 % (42.0-52.0); HEMOGLOBIN. 10.7 g/dL (14.0-18.0); LYMPHOCYTES % 9.1 % (20.0-50.0); MEAN CORPUSCULAR HEMOGLOBIN 30.2 pg (28.0-32.0); MEAN CORPUSCULAR VOLUME 92.9 fL (80.0-94.0); MEAN PLATELET VOLUME 9.7 fl (7.4-10.4); MONOCYTES % 10.4 % (2.0-8.0); NEUTROPHILS % 79.6 % (40.0-76.0); PLATELET 236 x1000/uL (130-400); RED BLOOD CELL COUNT 3.55 mill/uL (4.7-6.1); RED CELL DISTRIBUTION WIDTH 15.7 % (11.6-14.6)
[2018-04-15] MEDS: INSULIN LISPRO 100 UNITS/ML SUBCUT SCH ×4 (08:00→21:00)
[2018-04-15] MEDS: BLOOD SUGAR DIAGNOSTIC STRIP TEST SCH ×4 (08:22→21:12)
[2018-04-15] MEDS: APIXABAN 5 MG TABLET PO SCH ×2 (09:28→17:55)
[2018-04-15] MEDS: OMEPRAZOLE 20MG CAPSULE EXTENDED RELEASE PO SCH (09:28)
[2018-04-15] MEDS: MIDODRINE HCL 5MG TABLET PO SCH ×3 (09:28→17:54)
[2018-04-15] MEDS: ONDANSETRON HCL 4MG/2ML INJ IV PRN ×2 (09:28→18:06)
[2018-04-15] MEDS: ACETAMINOPHEN 325MG TABLET PO PRN ×2 (10:29→17:55)
[2018-04-15] MEDS: DOPAMINE 400MG PREMIX 250 ML IV SCH ×2 (11:03→23:16)
[2018-04-15] MEDS: CEFTRIAXONE 1 G PREMIX 50 ML IV SCH (15:19)
[2018-04-15] MEDS: MONTELUKAST SODIUM 10MG TABLET PO SCH (17:55)
[2018-04-15] MEDS: ATORVASTATIN CALCIUM 40MG TABLET PO SCH (21:07)
[2018-04-16] VITALS (9 sets, daily range): BP systolic 110–149; BP diastolic 60–80
[2018-04-16] MEDS: SODIUM CHLORIDE 0.9% 1,000 ML IV SCH ×2 (03:15→14:34)
[2018-04-16] MEDS: DOPAMINE 400MG PREMIX 250 ML IV SCH (03:17)
[2018-04-16 05:32] LABS: CLARITY URINE CLEAR (CLEAR); COLOR URINE ORANGE (YELLOW); KETONES URINE NEGATIVE (NEGATIVE); LEUKOCYTE ESTERASE URINE TRACE (NEGATIVE); NITRITE URINE NEGATIVE (NEGATIVE); OCCULT BLOOD URINE 3+ (NEGATIVE); PROTEIN URINE 1+ (NEGATIVE); SPECIFIC GRAVITY URINE 1.009 (1.005-1.030); UROBILINOGEN URINE 0.2 E.U./dL (0.2-1.0)
[2018-04-16 06:42] LABS: BASOPHILS % 0.7 % (0.0-2.0); EOSINOPHILS % 2.5 % (0.0-5.0); HEMATOCRIT. 32.4 % (42.0-52.0); HEMOGLOBIN. 10.8 g/dL (14.0-18.0); LYMPHOCYTES % 11.5 % (20.0-50.0); MEAN CORPUSCULAR HEMOGLOBIN 30.7 pg (28.0-32.0); MEAN CORPUSCULAR VOLUME 91.9 fL (80.0-94.0); MEAN PLATELET VOLUME 9.9 fl (7.4-10.4); MONOCYTES % 10.6 % (2.0-8.0); NEUTROPHILS % 74.7 % (40.0-76.0); PLATELET 239 x1000/uL (130-400); RED BLOOD CELL COUNT 3.53 mill/uL (4.7-6.1); RED CELL DISTRIBUTION WIDTH 15.5 % (11.6-14.6)
[2018-04-16 07:17] LABS: CHLORIDE 109 mEq/L (98-107)
[2018-04-16] MEDS: BLOOD SUGAR DIAGNOSTIC STRIP TEST SCH ×4 (07:30→21:00)
[2018-04-16] MEDS: INSULIN LISPRO 100 UNITS/ML SUBCUT SCH ×4 (08:00→21:00)
[2018-04-16] MEDS: APIXABAN 5 MG TABLET PO SCH ×2 (09:00→17:00)
[2018-04-16] MEDS: FAMOTIDINE 20MG TABLET PO SCH (10:00)
[2018-04-16] MEDS: MIDODRINE HCL 5MG TABLET PO SCH ×3 (10:00→17:43)
[2018-04-16] MEDS: CEFTRIAXONE 1 G PREMIX 50 ML IV SCH (16:34)
[2018-04-16] MEDS: MONTELUKAST SODIUM 10MG TABLET PO SCH (17:43)
[2018-04-16] MEDS: ATORVASTATIN CALCIUM 40MG TABLET PO SCH (21:00)
[2018-04-17] VITALS (12 sets, daily range): BP systolic 105–170; BP diastolic 49–79
[2018-04-17] MEDS: SODIUM CHLORIDE 0.9% 1,000 ML IV SCH ×2 (01:47→10:09)
[2018-04-17 07:06] LABS: HEPATITIS B SURFACE ANTIGEN NEGATIVE
[2018-04-17 07:35] LABS: HEPATITIS A AB IGM NEGATIVE (NEGATIVE)
[2018-04-17] MEDS: BLOOD SUGAR DIAGNOSTIC STRIP TEST SCH ×4 (07:36→20:28)
[2018-04-17] MEDS: INSULIN LISPRO 100 UNITS/ML SUBCUT SCH ×4 (08:00→21:46)
[2018-04-17] MEDS: FAMOTIDINE 20MG TABLET PO SCH (08:17)
[2018-04-17] MEDS: APIXABAN 5 MG TABLET PO SCH ×2 (08:17→16:06)
[2018-04-17] MEDS: MIDODRINE HCL 5MG TABLET PO SCH ×3 (08:17→16:07)
[2018-04-17] MEDS: TAMSULOSIN HCL 0.4MG SR CAPSULE PO SCH (10:09)
[2018-04-17] MEDS: CEFTRIAXONE 1 G PREMIX 50 ML IV SCH (14:39)
[2018-04-17] MEDS: MONTELUKAST SODIUM 10MG TABLET PO SCH (18:03)
[2018-04-17] MEDS: ATORVASTATIN CALCIUM 40MG TABLET PO SCH (21:46)
[2018-04-18] VITALS (11 sets, daily range): BP systolic 124–143; BP diastolic 37–91
[2018-04-18 05:40] LABS: BASOPHILS % 0.6 % (0.0-2.0); EOSINOPHILS % 3.3 % (0.0-5.0); HEMATOCRIT. 26.7 % (42.0-52.0); HEMOGLOBIN. 8.9 g/dL (14.0-18.0); LYMPHOCYTES % 14.7 % (20.0-50.0); MEAN CORPUSCULAR HEMOGLOBIN 30.5 pg (28.0-32.0); MEAN CORPUSCULAR VOLUME 92.2 fL (80.0-94.0); MEAN PLATELET VOLUME 9.5 fl (7.4-10.4); MONOCYTES % 9.1 % (2.0-8.0); NEUTROPHILS % 72.3 % (40.0-76.0); PLATELET 194 x1000/uL (130-400); RED CELL DISTRIBUTION WIDTH 15.4 % (11.6-14.6)
[2018-04-18] MEDS: INSULIN LISPRO 100 UNITS/ML SUBCUT SCH ×4 (08:00→20:49)
[2018-04-18] MEDS: BLOOD SUGAR DIAGNOSTIC STRIP TEST SCH ×4 (08:24→20:49)
[2018-04-18] MEDS: APIXABAN 5 MG TABLET PO SCH ×2 (09:56→17:51)
[2018-04-18] MEDS: FAMOTIDINE 20MG TABLET PO SCH (09:57)
[2018-04-18] MEDS: TAMSULOSIN HCL 0.4MG SR CAPSULE PO SCH (09:57)
[2018-04-18] MEDS: MIDODRINE HCL 5MG TABLET PO SCH ×3 (09:57→17:52)
[2018-04-18] MEDS: CEFTRIAXONE 1 G PREMIX 50 ML IV SCH (15:17)
[2018-04-18] MEDS: MONTELUKAST SODIUM 10MG TABLET PO SCH (17:51)
[2018-04-18] MEDS: ATORVASTATIN CALCIUM 40MG TABLET PO SCH (22:17)
[2018-04-19] VITALS (12 sets, daily range): BP systolic 115–145; BP diastolic 61–90
[2018-04-19] MEDS: BLOOD SUGAR DIAGNOSTIC STRIP TEST SCH ×3 (07:30→17:08)
[2018-04-19] MEDS: INSULIN LISPRO 100 UNITS/ML SUBCUT SCH ×3 (08:00→17:08)
[2018-04-19] MEDS: MIDODRINE HCL 5MG TABLET PO SCH ×3 (09:12→17:14)
[2018-04-19] MEDS: FAMOTIDINE 20MG TABLET PO SCH (09:12)
[2018-04-19] MEDS: APIXABAN 5 MG TABLET PO SCH ×2 (09:12→17:00)
[2018-04-19] MEDS: TAMSULOSIN HCL 0.4MG SR CAPSULE PO SCH (09:13)
[2018-04-19] MEDS: CEFTRIAXONE 1 G PREMIX 50 ML IV SCH (15:00)
[2018-04-19] MEDS: MONTELUKAST SODIUM 10MG TABLET PO SCH (17:14)
== END 2018-04-19 19:00 | disposition home or self-care (01) | DRG 872 ==
LOC: ER 04:58 → 5EST 07:41 → EDBEDREQ 08:03 → EDBEDREQTM 08:03 → ENRESERV 08:21
PROVIDERS: ADMIT Internal Medicine Nephrology; ATTEND Internal Medicine Nephrology
PROC: 02HV33Z Insertion of Infusion Device into Superior Vena Cava, Percutaneous Approach (ICD-10-PCS; principal; 2018-04-14)
PROC: B548ZZA Ultrasonography of Superior Vena Cava, Guidance (ICD-10-PCS; 2018-04-14)
PROC: 5A1D70Z Performance of Urinary Filtration, Intermittent, Less than 6 Hours Per Day (ICD-10-PCS; 2018-04-14)
PROC: 5A1D70Z Performance of Urinary Filtration, Intermittent, Less than 6 Hours Per Day (ICD-10-PCS; 2018-04-15)
PROC: 5A09457 Assistance with Respiratory Ventilation, 24-96 Consecutive Hours, Continuous Positive Airway Pressure (ICD-10-PCS; 2018-04-17)
DX: A41.9 Sepsis, unspecified organism (principal); N17.9 Acute kidney failure, unspecified; N39.0 Urinary tract infection, site not specified; I13.0 Hypertensive heart and chronic kidney disease with heart failure and stage 1 through stage 4 chronic kidney disease, or unspecified chronic kidney disease; R57.9 Shock, unspecified; Z68.41 Body mass index [BMI] 40.0-44.9, adult; E66.01 Morbid (severe) obesity due to excess calories; E11.51 Type 2 diabetes mellitus with diabetic peripheral angiopathy without gangrene; E11.22 Type 2 diabetes mellitus with diabetic chronic kidney disease; I50.9 Heart failure, unspecified; M10.9 Gout, unspecified; D64.9 Anemia, unspecified; R19.7 Diarrhea, unspecified; E78.5 Hyperlipidemia, unspecified; E87.5 Hyperkalemia; G47.33 Obstructive sleep apnea (adult) (pediatric); I48.91 Unspecified atrial fibrillation; J44.9 Chronic obstructive pulmonary disease, unspecified; N18.9 Chronic kidney disease, unspecified; Z82.49 Family history of ischemic heart disease and other diseases of the circulatory system; Z95.810 Presence of automatic (implantable) cardiac defibrillator; Z99.2 Dependence on renal dialysis; Z79.899 Other long term (current) drug therapy
CPT/HCPCS: 36415; 36569; 36600; 71045; 76770; 76937; 80048; 82375; 82805; 82962; 83605; 83880; 84145; 84153; 84484; 86705; 86709; 86803; 87340; 87493; 93005; 94640; 94660; 96374; 99291; C1752; C1887; J0696; J1265; J1815; J2405; J3490; J7030; J7040; J7060; G0103

== ENCOUNTER 2018-06-15 03:02 | Inpatient (IN) | payer MEDICARE, MEDICAID ==
[2018-06-15] VITALS (8 sets, daily range): BP systolic 90–139; BP diastolic 42–79
[~2018-06-15] VITALS: Ht 175.3 cm; Wt 122.9 kg
[~2018-06-15 03:02] MED LIST changes: -CHOL20004 PO; +FLUT1AER IH; -FLUT1DIS INH; +PRED10TA PO; -TAMS-11 PO
[2018-06-15] MEDS ORDERED: ALBUTEROL (0.083%) 2.5MG/3ML NEB HHN STA (03:25)
[2018-06-15] MEDS ORDERED: IPRATROPIUM BROMIDE (0.02%) 0.5MG/2.5ML NEB HHN STA (03:25)
[2018-06-15] MEDS ORDERED: METHYLPREDNISOLONE SOD SUCC 125 MG/2 ML VIAL IV STA (03:25)
[2018-06-15] MEDS ORDERED: MAGNESIUM 2 G PREMIX 50 ML IV ONE (03:30)
[2018-06-15 03:46] LABS: BG BASE EXCESS -14.8 mmol/L (-2.0-2.0); BG CARBOXYHEMOGLOBIN 0.7 % (0.5-1.5); BG DEOXYHEMOGLOBIN 0.8 % (0.0-5.0); BG FRACTION INSPIRED OXYGEN 100; BG HCO3 ACT 11.8 mmol/L (22.0-26.0); BG METHEMOGLOBIN 0.4 % (0.0-1.5); BG OXYGEN SATURATION 99.2 % (92.0-98.5); BG OXYHEMOGLOBIN 98.1 % (94.0-97.0); BG PCO2 30.2 mmHg (35.0-45.0); BG PH 7.208 (7.350-7.450); BG PO2 347.1 mmHg (75.0-100.0); BG SAMPLE SITE LEFT RADIAL; BG TOTAL HEMOGLOBIN 11.2 g/dL (12.0-18.0); BG VENT MODE MASK - NRB
[2018-06-15 04:00] LABS: BASOPHILS % 0.5 % (0.0-2.0); EOSINOPHILS % 0.8 % (0.0-5.0); HEMATOCRIT. 32.3 % (42.0-52.0); HEMOGLOBIN. 10.5 g/dL (14.0-18.0); LYMPHOCYTES % 12.8 % (20.0-50.0); MEAN CORPUSCULAR HEMOGLOBIN 29.2 pg (28.0-32.0); MEAN PLATELET VOLUME 9.4 fl (7.4-10.4); MONOCYTES % 6.8 % (2.0-8.0); NEUTROPHILS % 79.1 % (40.0-76.0); PLATELET 178 x1000/uL (130-400); RED BLOOD CELL COUNT 3.59 mill/uL (4.7-6.1); RED CELL DISTRIBUTION WIDTH 16.3 % (11.6-14.6)
[2018-06-15 04:02] LABS: CHLORIDE 104 mEq/L (98-107)
[2018-06-15] MEDS ORDERED: FUROSEMIDE 100MG/10ML VIAL IV STA (04:38)
[2018-06-15] MEDS ORDERED: ALBUTEROL (0.083%) 2.5MG/3ML NEB HHN ONE (04:45)
[2018-06-15] MEDS ORDERED: CALCIUM CHLORIDE 1GM/10ML SYR IV ONE (04:45)
[2018-06-15] MEDS ORDERED: SODIUM BICARBONATE 8.4% 1 MEQ/ML 50ML SYR IV ONE (04:45)
[2018-06-15] MEDS ORDERED: DEXTROSE 50% WATER 50ML SYRINGE IV ONE (04:45)
[2018-06-15] MEDS ORDERED: INSULIN REGULAR (HUMULIN R) 300UNITS/3ML IV ONE (04:45)
[2018-06-15] MEDS ORDERED: SODIUM CHLORIDE 0.9% 1,000 ML IV ONE (05:00)
[2018-06-15] MEDS ORDERED: ONDANSETRON HCL 4MG/2ML INJ IV PRN (07:00)
[2018-06-15] MEDS ORDERED: DOCUSATE SODIUM 100MG CAPSULE PO PRN (07:00)
[2018-06-15] MEDS ORDERED: MAGNESIUM/ALUMINUM HYDROXIDE/SIMETHICONE 30ML UDC PO PRN (07:00)
[2018-06-15] MEDS ORDERED: IPRATROPIUM/ALBUTEROL 0.5-3(2.5)MG/3ML NEB INH PRN (07:00)
[2018-06-15] MEDS ORDERED: LORAZEPAM 2MG/ML CPJ IV PRN (07:00)
[2018-06-15] MEDS ORDERED: HYDROCODONE/ACETAMINOPHEN 5/325MG TABLET PO PRN (07:00)
[2018-06-15] MEDS ORDERED: ACETAMINOPHEN 325MG TABLET PO PRN (07:00)
[2018-06-15] MEDS ORDERED: CLONIDINE 0.1MG TABLET PO PRN (07:00)
[2018-06-15] MEDS ORDERED: GUAIFENESIN 200MG/10ML SUGAR FREE UDC PO PRN (07:00)
[2018-06-15] MEDS ORDERED: DIPHENHYDRAMINE 50MG/ML VIAL IV PRN (07:00)
[2018-06-15] MEDS ORDERED: PANT20TA3 PO (11:05)
[2018-06-15] MEDS ORDERED: FLUT1AER4 INH (11:05)
[2018-06-15] MEDS ORDERED: LISINOPRIL 5MG TABLET PO SCH (12:00)
[2018-06-15] MEDS ORDERED: NON FORMULARY PATIENT HOME MED ORI SCH ×2 (12:30)
[2018-06-15] MEDS ORDERED: ALLOPURINOL 300 MG TABLET PO SCH (12:30)
[2018-06-15] MEDS: APIXABAN 5 MG TABLET PO SCH (14:30)
[2018-06-15] MEDS ORDERED: IPRATROPIUM BROMIDE (0.02%) 0.5MG/2.5ML NEB HHN PRN (14:45)
[2018-06-15 14:46] LABS: INR 1.2; PROTHROMBIN TIME 11.9 sec (9.1-11.1)
[2018-06-15] MEDS ORDERED: SODIUM BICARBONATE 4% (2.4MEQ) 5ML VIAL IV ONE (14:52)
[2018-06-15] MEDS ORDERED: HEPARIN 1000 UNITS/ML 10ML ONE (14:52)
[2018-06-15] MEDS ORDERED: LIDOCAINE HCL 1% 20ML VIAL (Pyxis) INJ ONE (14:52)
[2018-06-15] MEDS: PANTOPRAZOLE 40MG DR TABLET PO SCH (15:45)
[2018-06-15] MEDS: MONTELUKAST SODIUM 10MG TABLET PO SCH (16:30)
[2018-06-15] MEDS: TRAMADOL 50MG TABLET PO PRN (16:31)
[2018-06-15] MEDS ORDERED: SPIRONOLACTONE 50MG TABLET PO SCH (17:15)
[2018-06-15] MEDS: FUROSEMIDE 40MG TABLET PO SCH (17:15)
[2018-06-15] MEDS ORDERED: ATORVASTATIN CALCIUM 40MG TABLET PO SCH (21:00)
[2018-06-16] VITALS (12 sets, daily range): BP systolic 90–139; BP diastolic 50–99
[2018-06-16] MEDS: FUROSEMIDE 40MG TABLET PO SCH (06:31)
[2018-06-16] MEDS: PANTOPRAZOLE 40MG DR TABLET PO SCH (06:31)
[2018-06-16 07:13] LABS: HEMOGLOBIN. 10.7 g/dL (14.0-18.0); MEAN CORPUSCULAR HEMOGLOBIN 29.7 pg (28.0-32.0); MEAN CORPUSCULAR VOLUME 88.8 fL (80.0-94.0); MEAN PLATELET VOLUME 8.3 fl (7.4-10.4); PLATELET 167 x1000/uL (130-400)
[2018-06-16 07:42] LABS: CHLORIDE 110 mEq/L (98-107)
[2018-06-16] MEDS: APIXABAN 5 MG TABLET PO SCH ×2 (08:52→16:27)
[2018-06-16] MEDS ORDERED: METFORMIN HCL 500MG TABLET PO SCH (09:00)
[2018-06-16 09:37] LABS: CLARITY URINE CLEAR (CLEAR); COLOR URINE YELLOW (YELLOW); KETONES URINE NEGATIVE (NEGATIVE); LEUKOCYTE ESTERASE URINE NEGATIVE (NEGATIVE); NITRITE URINE NEGATIVE (NEGATIVE); OCCULT BLOOD URINE NEGATIVE (NEGATIVE); PROTEIN URINE NEGATIVE (NEGATIVE); SPECIFIC GRAVITY URINE 1.011 (1.005-1.030); UROBILINOGEN URINE 0.2 E.U./dL (0.2-1.0)
[2018-06-16] MEDS ORDERED: MAGNESIUM/ALUMINUM HYDROXIDE/SIMETHICONE 30ML UDC PO PRN (10:15)
[2018-06-16 10:29] LABS: PLATELET ESTIMATE NORMAL
[2018-06-16] MEDS: SODIUM CHLORIDE 0.9% 1,000 ML IV SCH (15:29)
[2018-06-16] MEDS: MONTELUKAST SODIUM 10MG TABLET PO SCH (16:27)
[2018-06-17] VITALS (12 sets, daily range): BP systolic 87–128; BP diastolic 52–82
[2018-06-17] MEDS: PANTOPRAZOLE 40MG DR TABLET PO SCH (06:37)
[2018-06-17] MEDS: SODIUM CHLORIDE 0.9% 1,000 ML IV SCH (06:38)
[2018-06-17] MEDS: APIXABAN 5 MG TABLET PO SCH ×2 (08:58→17:02)
[2018-06-17] MEDS: MONTELUKAST SODIUM 10MG TABLET PO SCH (17:02)
[2018-06-17 18:44] LABS: BASOPHILS % 0.3 % (0.0-2.0); EOSINOPHILS % 0.6 % (0.0-5.0); HEMATOCRIT. 33.6 % (42.0-52.0); HEMOGLOBIN. 10.8 g/dL (14.0-18.0); LYMPHOCYTES % 12.9 % (20.0-50.0); MEAN CORPUSCULAR HEMOGLOBIN 28.9 pg (28.0-32.0); MEAN PLATELET VOLUME 9.5 fl (7.4-10.4); MONOCYTES % 11.9 % (2.0-8.0); NEUTROPHILS % 74.3 % (40.0-76.0); PLATELET 147 x1000/uL (130-400); RED BLOOD CELL COUNT 3.73 mill/uL (4.7-6.1); RED CELL DISTRIBUTION WIDTH 16.4 % (11.6-14.6)
[2018-06-17 18:54] LABS: CHLORIDE 109 mEq/L (98-107)
[2018-06-18] VITALS (11 sets, daily range): BP systolic 91–139; BP diastolic 35–85
[2018-06-18] MEDS: SODIUM CHLORIDE 0.9% 1,000 ML IV SCH ×2 (00:28→17:38)
[2018-06-18] MEDS: APIXABAN 5 MG TABLET PO SCH ×2 (08:24→16:31)
[2018-06-18] MEDS: PANTOPRAZOLE 40MG DR TABLET PO SCH (08:24)
[2018-06-18] MEDS ORDERED: KETOROLAC 15MG/ML VIAL IV PRN (10:45)
[2018-06-18] MEDS: TRAMADOL 50MG TABLET PO PRN (12:26)
[2018-06-18] MEDS: MONTELUKAST SODIUM 10MG TABLET PO SCH (16:31)
[2018-06-19] VITALS (12 sets, daily range): BP systolic 97–158; BP diastolic 24–96
[2018-06-19] MEDS: APIXABAN 5 MG TABLET PO SCH ×2 (08:38→17:13)
[2018-06-19] MEDS: FAMOTIDINE 20MG TABLET PO SCH (08:39)
[2018-06-19 09:51] LABS: BASOPHILS % 0.3 % (0.0-2.0); EOSINOPHILS % 3.4 % (0.0-5.0); HEMATOCRIT. 33.6 % (42.0-52.0); HEMOGLOBIN. 10.8 g/dL (14.0-18.0); LYMPHOCYTES % 17.9 % (20.0-50.0); MEAN CORPUSCULAR HEMOGLOBIN 29.1 pg (28.0-32.0); MEAN CORPUSCULAR VOLUME 90.3 fL (80.0-94.0); MEAN PLATELET VOLUME 8.6 fl (7.4-10.4); MONOCYTES % 10.4 % (2.0-8.0); PLATELET 132 x1000/uL (130-400); RED BLOOD CELL COUNT 3.72 mill/uL (4.7-6.1); RED CELL DISTRIBUTION WIDTH 16.5 % (11.6-14.6)
[2018-06-19] MEDS: SODIUM CHLORIDE 0.9% 1,000 ML IV SCH (10:32)
[2018-06-19] MEDS: MONTELUKAST SODIUM 10MG TABLET PO SCH (17:14)
[2018-06-20] VITALS (12 sets, daily range): BP systolic 102–137; BP diastolic 39–78
[2018-06-20] MEDS: TRAMADOL 50MG TABLET PO PRN (00:16)
[2018-06-20] MEDS: SODIUM CHLORIDE 0.9% 1,000 ML IV SCH (03:08)
[2018-06-20] MEDS: APIXABAN 5 MG TABLET PO SCH ×2 (08:09→18:15)
[2018-06-20] MEDS: FAMOTIDINE 20MG TABLET PO SCH (08:09)
[2018-06-20] MEDS: MONTELUKAST SODIUM 10MG TABLET PO SCH (18:15)
== END 2018-06-20 22:50 | disposition home or self-care (01) | DRG 682 ==
LOC: ER 03:02 → 5EST 04:59 → ENRESERV 07:04
PROVIDERS: ADMIT Hospitalist; ATTEND Hospitalist
PROC: 5A1D70Z Performance of Urinary Filtration, Intermittent, Less than 6 Hours Per Day (ICD-10-PCS; principal; 2018-06-15)
PROC: 05HN33Z Insertion of Infusion Device into Left Internal Jugular Vein, Percutaneous Approach (ICD-10-PCS; 2018-06-15)
PROC: B544ZZA Ultrasonography of Left Jugular Veins, Guidance (ICD-10-PCS; 2018-06-15)
PROC: 5A1D70Z Performance of Urinary Filtration, Intermittent, Less than 6 Hours Per Day (ICD-10-PCS; 2018-06-16)
PROC: 5A09357 Assistance with Respiratory Ventilation, Less than 24 Consecutive Hours, Continuous Positive Airway Pressure (ICD-10-PCS; 2018-06-17)
PROC: 5A1D70Z Performance of Urinary Filtration, Intermittent, Less than 6 Hours Per Day (ICD-10-PCS; 2018-06-18)
PROC: 5A09357 Assistance with Respiratory Ventilation, Less than 24 Consecutive Hours, Continuous Positive Airway Pressure (ICD-10-PCS; 2018-06-20)
DX: N17.9 Acute kidney failure, unspecified (principal); J96.00 Acute respiratory failure, unspecified whether with hypoxia or hypercapnia; I13.2 Hypertensive heart and chronic kidney disease with heart failure and with stage 5 chronic kidney disease, or end stage renal disease; D68.59 Other primary thrombophilia; Z68.41 Body mass index [BMI] 40.0-44.9, adult; J45.901 Unspecified asthma with (acute) exacerbation; N18.6 End stage renal disease; E87.5 Hyperkalemia; D63.1 Anemia in chronic kidney disease; M10.9 Gout, unspecified; E11.22 Type 2 diabetes mellitus with diabetic chronic kidney disease; E78.5 Hyperlipidemia, unspecified; E66.01 Morbid (severe) obesity due to excess calories; F17.200 Nicotine dependence, unspecified, uncomplicated; G47.33 Obstructive sleep apnea (adult) (pediatric); I50.9 Heart failure, unspecified; I48.91 Unspecified atrial fibrillation; M77.9 Enthesopathy, unspecified; E05.90 Thyrotoxicosis, unspecified without thyrotoxic crisis or storm; J44.9 Chronic obstructive pulmonary disease, unspecified; Z82.49 Family history of ischemic heart disease and other diseases of the circulatory system; Z95.810 Presence of automatic (implantable) cardiac defibrillator; Z99.2 Dependence on renal dialysis
CPT/HCPCS: 36415; 36556; 36600; 71045; 76770; 76937; 80048; 82375; 82805; 82962; 83605; 84153; 87804; 93005; 93970; 94660; 97162; 97535; 99285; C1752; J1644; J1815; J1885; J1940; J2930; J3475; J3490; J7030; G0103

== ENCOUNTER 2018-09-12 18:08 | Inpatient (IN) | payer MEDICARE, MEDICAID ==
[~2018-09-12] VITALS: Ht 175.3 cm; Wt 124.3 kg
[~2018-09-12 18:08] MED LIST changes: +FLUT1AER4 INH; -IPRA0.2S51 NEB; -OMEP20CA10 PO; +PANT20TA3 PO
[2018-09-12] MEDS ORDERED: SODIUM CHLORIDE 0.9% 1,000 ML IV ONE (18:31)
[2018-09-12] MEDS ORDERED: HYDROCODONE/ACETAMINOPHEN 5/325MG TABLET PO STA (18:31)
[2018-09-12 19:03] LABS: BASOPHILS % 1.2 % (0.0-2.0); EOSINOPHILS % 0.7 % (0.0-5.0); HEMATOCRIT. 33.3 % (42.0-52.0); HEMOGLOBIN. 10.8 g/dL (14.0-18.0); LYMPHOCYTES % 8.2 % (20.0-50.0); MEAN CORPUSCULAR HEMOGLOBIN 29.5 pg (28.0-32.0); MEAN CORPUSCULAR VOLUME 91.4 fL (80.0-94.0); MEAN PLATELET VOLUME 9.5 fl (7.4-10.4); MONOCYTES % 6.9 % (2.0-8.0); PLATELET 236 x1000/uL (130-400); RED BLOOD CELL COUNT 3.64 mill/uL (4.7-6.1); RED CELL DISTRIBUTION WIDTH 16.8 % (11.6-14.6)
[2018-09-12 19:07] LABS: CHLORIDE 103 mEq/L (98-107)
[2018-09-12 19:09] LABS: INR 1.2; PROTHROMBIN TIME 11.6 sec (9.1-11.1)
[2018-09-12 20:17] LABS: CLARITY URINE CLEAR (CLEAR); COLOR URINE YELLOW (YELLOW); KETONES URINE NEGATIVE (NEGATIVE); LEUKOCYTE ESTERASE URINE NEGATIVE (NEGATIVE); NITRITE URINE NEGATIVE (NEGATIVE); OCCULT BLOOD URINE NEGATIVE (NEGATIVE); PROTEIN URINE NEGATIVE (NEGATIVE); SPECIFIC GRAVITY URINE 1.009 (1.005-1.030); UROBILINOGEN URINE 0.2 E.U./dL (0.2-1.0)
[2018-09-12] MEDS ORDERED: INSULIN REGULAR (HUMULIN R) 300UNITS/3ML IV ONE (20:30)
[2018-09-12] MEDS ORDERED: ALBUTEROL (0.083%) 2.5MG/3ML NEB HHN ONE (20:30)
[2018-09-12] MEDS ORDERED: SODIUM BICARBONATE 8.4% 1 MEQ/ML 50ML SYR IV ONE (20:30)
[2018-09-12] MEDS ORDERED: DEXTROSE 50% WATER 50ML SYRINGE IV ONE (20:30)
[2018-09-12] MEDS ORDERED: ONDANSETRON HCL 4MG/2ML INJ IV PRN (22:45)
[2018-09-12] MEDS ORDERED: HYDROCODONE/ACETAMINOPHEN 5/325MG TABLET PO PRN (22:45)
[2018-09-12] MEDS ORDERED: ENOXAPARIN 40MG/0.4ML SYR SUBCUT SCH (22:45)
[2018-09-12] MEDS ORDERED: LORAZEPAM 2MG/ML CPJ IV PRN (22:45)
[2018-09-12] MEDS ORDERED: CLONIDINE 0.1MG TABLET PO PRN (22:45)
[2018-09-13] VITALS (17 sets, daily range): BP systolic 80–171; BP diastolic 36–84
[2018-09-13] MEDS: SODIUM CHLORIDE 0.9% 1,000 ML IV SCH ×2 (03:23→21:17)
[2018-09-13 06:16] LABS: BASOPHILS % 0.7 % (0.0-2.0); EOSINOPHILS % 1.4 % (0.0-5.0); HEMATOCRIT. 33.9 % (42.0-52.0); LYMPHOCYTES % 13.6 % (20.0-50.0); MEAN CORPUSCULAR HEMOGLOBIN 29.8 pg (28.0-32.0); MEAN CORPUSCULAR VOLUME 91.3 fL (80.0-94.0); MEAN PLATELET VOLUME 9.8 fl (7.4-10.4); MONOCYTES % 8.2 % (2.0-8.0); NEUTROPHILS % 76.1 % (40.0-76.0); PLATELET 236 x1000/uL (130-400); RED BLOOD CELL COUNT 3.71 mill/uL (4.7-6.1)
[2018-09-13] MEDS ORDERED: SODIUM POLYSTYRENE SULFONATE 15 G/60 ML BOT PO SCH (09:00)
[2018-09-13] MEDS ORDERED: INSULIN REGULAR (HUMULIN R) UD 100 UNITS/ML SYR IV SCH (09:00)
[2018-09-13] MEDS ORDERED: FERROUS SULFATE 325MG TABLET PO SCH (09:00)
[2018-09-13] MEDS: ENOXAPARIN 40MG/0.4ML SYR SUBCUT SCH (09:00)
[2018-09-13] MEDS ORDERED: DEXTROSE 50% WATER 50ML SYRINGE IV SCH (09:00)
[2018-09-13] MEDS: FOLIC ACID 1MG TABLET PO SCH (10:06)
[2018-09-13] MEDS: THIAMINE HCL 100MG TABLET PO SCH (10:07)
[2018-09-13 13:25] LABS: BASOPHILS % 0.8 % (0.0-2.0); HEMATOCRIT. 33.4 % (42.0-52.0); MEAN CORPUSCULAR HEMOGLOBIN 29.5 pg (28.0-32.0); MEAN CORPUSCULAR VOLUME 89.8 fL (80.0-94.0); MEAN PLATELET VOLUME 8.8 fl (7.4-10.4); MONOCYTES % 7.8 % (2.0-8.0); NEUTROPHILS % 81.4 % (40.0-76.0); PLATELET 225 x1000/uL (130-400); RED BLOOD CELL COUNT 3.72 mill/uL (4.7-6.1); RED CELL DISTRIBUTION WIDTH 16.8 % (11.6-14.6)
[2018-09-13] MEDS ORDERED: CEFAZOLIN 1000MG PREMIX 50 ML IV ONE ×2 (13:45→14:28)
[2018-09-13] MEDS ORDERED: SODIUM BICARBONATE 4% (2.4MEQ) 5ML VIAL IV ONE (14:06)
[2018-09-13] MEDS ORDERED: LIDOCAINE HCL 1% 20ML VIAL (Pyxis) INJ ONE ×2 (14:07→14:37)
[2018-09-13] MEDS ORDERED: FLUTICASONE/VILANTEROL 200-25 BLST.W.DEV ORI SCH (14:15)
[2018-09-13] MEDS ORDERED: METFORMIN HCL 500MG TABLET PO ONE (14:15)
[2018-09-13] MEDS ORDERED: FENTANYL CITRATE/PF 50MCG/ML 2ML VIAL ONE (14:28)
[2018-09-13] MEDS ORDERED: FENTANYL CITRATE/PF 50MCG/ML 2ML VIAL IV ONE (14:30)
[2018-09-13] MEDS: ACETAMINOPHEN 325MG TABLET PO PRN (17:00)
[2018-09-13] MEDS ORDERED: DEXTROSE 50% WATER 50ML SYRINGE IV PRN ×2 (20:15)
[2018-09-13] MEDS: MONTELUKAST SODIUM 10MG TABLET PO SCH (20:46)
[2018-09-13] MEDS: ATORVASTATIN CALCIUM 40MG TABLET PO SCH (20:46)
[2018-09-13] MEDS: BUDESONIDE 0.5MG/2ML NEB HHN SCH (20:58)
[2018-09-13] MEDS: ALBUTEROL (0.083%) 2.5MG/3ML NEB HHN SCH (20:59)
[2018-09-13] MEDS: INSULIN LISPRO 100 UNITS/ML SUBCUT SCH (21:00)
[2018-09-13] MEDS: BLOOD SUGAR DIAGNOSTIC STRIP TEST SCH (21:17)
[2018-09-13] MEDS ORDERED: INSULIN GLARGINE UD 100 UNITS/ML SYR SUBCUT SCH (22:00)
[2018-09-13] MEDS: MAGNESIUM/ALUMINUM HYDROXIDE/SIMETHICONE 30ML UDC PO PRN (23:25)
[2018-09-14] VITALS: BP 95/55
[2018-09-14 04:00] VITALS: BP 98/47
[2018-09-14] MEDS: ALBUTEROL (0.083%) 2.5MG/3ML NEB HHN SCH ×4 (04:45→21:08)
[2018-09-14 06:45] LABS: HEMATOCRIT. 31.8 % (42.0-52.0); HEMOGLOBIN. 10.4 g/dL (14.0-18.0); MEAN CORPUSCULAR HEMOGLOBIN 29.2 pg (28.0-32.0); MEAN CORPUSCULAR VOLUME 89.4 fL (80.0-94.0); MEAN PLATELET VOLUME 9.9 fl (7.4-10.4); PLATELET 213 x1000/uL (130-400); RED BLOOD CELL COUNT 3.56 mill/uL (4.7-6.1); RED CELL DISTRIBUTION WIDTH 16.9 % (11.6-14.6)
[2018-09-14] MEDS: BLOOD SUGAR DIAGNOSTIC STRIP TEST SCH ×4 (07:28→21:00)
[2018-09-14] MEDS: INSULIN LISPRO 100 UNITS/ML SUBCUT SCH ×4 (07:28→21:00)
[2018-09-14] MEDS ORDERED: PANTOPRAZOLE 40MG DR TABLET PO SCH (07:40)
[2018-09-14 07:48] LABS: PHOSPHORUS 4.5 mg/dL (2.5-4.9)
[2018-09-14 08:00] VITALS: BP 139/74
[2018-09-14] MEDS: PANTOPRAZOLE 40MG DR TABLET PO SCH (08:12)
[2018-09-14] MEDS: THIAMINE HCL 100MG TABLET PO SCH (08:12)
[2018-09-14] MEDS: ENOXAPARIN 40MG/0.4ML SYR SUBCUT SCH (08:12)
[2018-09-14] MEDS: FOLIC ACID 1MG TABLET PO SCH (08:12)
[2018-09-14] MEDS: ACETAMINOPHEN 325MG TABLET PO PRN (08:20)
[2018-09-14] MEDS: BUDESONIDE 0.5MG/2ML NEB HHN SCH ×2 (09:23→21:10)
[2018-09-14 12:00] VITALS: BP 101/74
[2018-09-14 13:55] LABS: PLATELET ESTIMATE NORMAL
[2018-09-14 16:00] VITALS: BP 111/75
[2018-09-14] MEDS ORDERED: ENOXAPARIN 80MG/0.8ML SYR SUBCUT NR (17:30)
[2018-09-14 20:00] VITALS: BP 112/46
[2018-09-14] MEDS: CARVEDILOL 3.125 MG TABLET PO SCH (20:50)
[2018-09-14] MEDS: MONTELUKAST SODIUM 10MG TABLET PO SCH (21:06)
[2018-09-14] MEDS: ATORVASTATIN CALCIUM 40MG TABLET PO SCH (21:07)
[2018-09-14] MEDS: MAGNESIUM/ALUMINUM HYDROXIDE/SIMETHICONE 30ML UDC PO PRN (22:45)
[2018-09-15] VITALS: BP 115/52
[2018-09-15] MEDS: ALBUTEROL (0.083%) 2.5MG/3ML NEB HHN SCH ×3 (01:15→21:21)
[2018-09-15 01:43] LABS: PHOSPHORUS 4.8 mg/dL (2.5-4.9)
[2018-09-15 04:00] VITALS: BP 114/78
[2018-09-15 05:33] LABS: HEPATITIS B SURFACE ANTIGEN NEGATIVE
[2018-09-15] MEDS: BLOOD SUGAR DIAGNOSTIC STRIP TEST SCH ×4 (05:40→21:16)
[2018-09-15 06:02] LABS: HEPATITIS A AB IGM NEGATIVE (NEGATIVE)
[2018-09-15 07:37] LABS: BASOPHILS % 0.8 % (0.0-2.0); EOSINOPHILS % 1.8 % (0.0-5.0); HEMATOCRIT. 30.3 % (42.0-52.0); MEAN CORPUSCULAR HEMOGLOBIN 29.5 pg (28.0-32.0); MEAN CORPUSCULAR VOLUME 89.7 fL (80.0-94.0); MEAN PLATELET VOLUME 9.9 fl (7.4-10.4); MONOCYTES % 9.5 % (2.0-8.0); NEUTROPHILS % 70.9 % (40.0-76.0); PLATELET 198 x1000/uL (130-400); RED BLOOD CELL COUNT 3.38 mill/uL (4.7-6.1); RED CELL DISTRIBUTION WIDTH 16.5 % (11.6-14.6)
[2018-09-15 08:00] VITALS: BP 112/77
[2018-09-15] MEDS: PANTOPRAZOLE 40MG DR TABLET PO SCH (08:05)
[2018-09-15] MEDS: THIAMINE HCL 100MG TABLET PO SCH (08:05)
[2018-09-15] MEDS: INSULIN LISPRO 100 UNITS/ML SUBCUT SCH ×4 (08:05→21:00)
[2018-09-15] MEDS: FOLIC ACID 1MG TABLET PO SCH (08:06)
[2018-09-15] MEDS: CARVEDILOL 3.125 MG TABLET PO SCH ×2 (08:06→21:00)
[2018-09-15] MEDS ORDERED: ENOXAPARIN 30MG/0.3ML SYR SUBCUT SCH (09:00)
[2018-09-15] MEDS: SUCRALFATE 1 G/10 ML UDC PO SCH ×3 (12:40→21:40)
[2018-09-15] MEDS ORDERED: ENOXAPARIN 80MG/0.8ML SYR SUBCUT SCH (14:30)
[2018-09-15 16:00] VITALS: BP 114/70
[2018-09-15 20:00] VITALS: BP 109/71
[2018-09-15] MEDS: BUDESONIDE 0.5MG/2ML NEB HHN SCH (21:21)
[2018-09-15] MEDS: ATORVASTATIN CALCIUM 40MG TABLET PO SCH (21:40)
[2018-09-15] MEDS: MONTELUKAST SODIUM 10MG TABLET PO SCH (21:40)
[2018-09-16] VITALS: BP 115/64
[2018-09-16] MEDS: ALBUTEROL (0.083%) 2.5MG/3ML NEB HHN SCH ×4 (02:28→22:15)
[2018-09-16 04:00] VITALS: BP 114/64
[2018-09-16] MEDS: BLOOD SUGAR DIAGNOSTIC STRIP TEST SCH ×4 (05:17→20:46)
[2018-09-16 06:09] LABS: BASOPHILS % 0.5 % (0.0-2.0); EOSINOPHILS % 2.3 % (0.0-5.0); HEMATOCRIT. 28.9 % (42.0-52.0); HEMOGLOBIN. 9.6 g/dL (14.0-18.0); MEAN CORPUSCULAR HEMOGLOBIN 29.7 pg (28.0-32.0); MEAN CORPUSCULAR VOLUME 89.1 fL (80.0-94.0); MEAN PLATELET VOLUME 9.6 fl (7.4-10.4); MONOCYTES % 8.9 % (2.0-8.0); NEUTROPHILS % 70.3 % (40.0-76.0); PLATELET 190 x1000/uL (130-400); RED BLOOD CELL COUNT 3.24 mill/uL (4.7-6.1); RED CELL DISTRIBUTION WIDTH 16.6 % (11.6-14.6)
[2018-09-16] MEDS: INSULIN LISPRO 100 UNITS/ML SUBCUT SCH ×4 (07:29→21:24)
[2018-09-16] MEDS ORDERED: OMEPRAZOLE 20MG CAPSULE EXTENDED RELEASE PO SCH (07:40)
[2018-09-16 08:00] VITALS: BP 115/76
[2018-09-16] MEDS: SUCRALFATE 1 G/10 ML UDC PO SCH ×2 (08:03→13:50)
[2018-09-16] MEDS: FOLIC ACID 1MG TABLET PO SCH (09:32)
[2018-09-16] MEDS: THIAMINE HCL 100MG TABLET PO SCH (09:32)
[2018-09-16] MEDS: CARVEDILOL 3.125 MG TABLET PO SCH ×2 (09:32→20:46)
[2018-09-16] MEDS: BUDESONIDE 0.5MG/2ML NEB HHN SCH ×2 (09:52→22:15)
[2018-09-16 12:00] VITALS: BP 111/66
[2018-09-16] MEDS ORDERED: ENOXAPARIN 80MG/0.8ML SYR SUBCUT NR (15:00)
[2018-09-16 16:00] VITALS: BP 117/61
[2018-09-16] MEDS ORDERED: SORBITOL 70% SOLN 30ML PO NR ×2 (16:00→20:00)
[2018-09-16] MEDS: PANTOPRAZOLE SODIUM 40 MG/VIAL IV SCH ×2 (16:00→20:45)
[2018-09-16 20:00] VITALS: BP 136/88
[2018-09-16] MEDS: ATORVASTATIN CALCIUM 40MG TABLET PO SCH (20:46)
[2018-09-16] MEDS: MONTELUKAST SODIUM 10MG TABLET PO SCH (20:46)
[2018-09-17] VITALS: BP 115/79
[2018-09-17] MEDS: ALBUTEROL (0.083%) 2.5MG/3ML NEB HHN SCH ×3 (03:19→21:42)
[2018-09-17 04:00] VITALS: BP 111/69
[2018-09-17 05:52] LABS: BASOPHILS % 0.6 % (0.0-2.0); EOSINOPHILS % 2.8 % (0.0-5.0); HEMATOCRIT. 31.5 % (42.0-52.0); HEMOGLOBIN. 10.3 g/dL (14.0-18.0); LYMPHOCYTES % 13.9 % (20.0-50.0); MEAN CORPUSCULAR HEMOGLOBIN 29.6 pg (28.0-32.0); MEAN CORPUSCULAR VOLUME 90.4 fL (80.0-94.0); MEAN PLATELET VOLUME 9.5 fl (7.4-10.4); NEUTROPHILS % 74.7 % (40.0-76.0); PLATELET 199 x1000/uL (130-400); RED BLOOD CELL COUNT 3.48 mill/uL (4.7-6.1); RED CELL DISTRIBUTION WIDTH 16.6 % (11.6-14.6)
[2018-09-17] MEDS: BLOOD SUGAR DIAGNOSTIC STRIP TEST SCH ×4 (06:55→20:45)
[2018-09-17 08:00] VITALS: BP 117/72
[2018-09-17] MEDS: INSULIN LISPRO 100 UNITS/ML SUBCUT SCH ×4 (08:10→20:52)
[2018-09-17] MEDS: CARVEDILOL 3.125 MG TABLET PO SCH ×2 (09:00→20:45)
[2018-09-17] MEDS: THIAMINE HCL 100MG TABLET PO SCH (09:00)
[2018-09-17] MEDS: FOLIC ACID 1MG TABLET PO SCH (09:00)
[2018-09-17] MEDS: PANTOPRAZOLE SODIUM 40 MG/VIAL IV SCH ×2 (09:32→20:45)
[2018-09-17] MEDS ORDERED: BACTERIOSTATIC SODIUM CHLORIDE 0.9% 30ML VIAL IJ ONE (09:47)
[2018-09-17 12:00] VITALS: BP 120/79
[2018-09-17] MEDS: BUDESONIDE 0.5MG/2ML NEB HHN SCH ×2 (12:01→21:41)
[2018-09-17] MEDS ORDERED: MIDAZOLAM HCL 5 MG/5 ML VIAL ONE ×2 (14:32→15:21)
[2018-09-17] MEDS ORDERED: FENTANYL CITRATE/PF 50MCG/ML 2ML VIAL ONE (14:32)
[2018-09-17] MEDS ORDERED: MIDAZOLAM HCL 5 MG/5 ML VIAL IV PRN (15:16)
[2018-09-17] MEDS ORDERED: FENTANYL CITRATE/PF 50MCG/ML 2ML VIAL IV PRN (15:18)
[2018-09-17 20:00] VITALS: BP 135/75
[2018-09-17] MEDS: ATORVASTATIN CALCIUM 40MG TABLET PO SCH (20:45)
[2018-09-17] MEDS: MONTELUKAST SODIUM 10MG TABLET PO SCH (20:45)
[2018-09-18 00:05] VITALS: BP 126/72
[2018-09-18] MEDS: ALBUTEROL (0.083%) 2.5MG/3ML NEB HHN SCH ×3 (02:08→15:37)
[2018-09-18 04:00] VITALS: BP 105/66
[2018-09-18 06:15] LABS: BASOPHILS % 0.5 % (0.0-2.0); EOSINOPHILS % 2.4 % (0.0-5.0); HEMATOCRIT. 28.8 % (42.0-52.0); HEMOGLOBIN. 9.5 g/dL (14.0-18.0); LYMPHOCYTES % 11.7 % (20.0-50.0); MEAN CORPUSCULAR HEMOGLOBIN 29.8 pg (28.0-32.0); MEAN CORPUSCULAR VOLUME 90.1 fL (80.0-94.0); MEAN PLATELET VOLUME 9.7 fl (7.4-10.4); MONOCYTES % 8.3 % (2.0-8.0); NEUTROPHILS % 77.1 % (40.0-76.0); PLATELET 187 x1000/uL (130-400); RED BLOOD CELL COUNT 3.19 mill/uL (4.7-6.1); RED CELL DISTRIBUTION WIDTH 16.4 % (11.6-14.6)
[2018-09-18] MEDS: BLOOD SUGAR DIAGNOSTIC STRIP TEST SCH ×2 (07:40→12:40)
[2018-09-18 08:00] VITALS: BP 123/78
[2018-09-18] MEDS: INSULIN LISPRO 100 UNITS/ML SUBCUT SCH ×2 (08:10→13:10)
[2018-09-18] MEDS: PANTOPRAZOLE SODIUM 40 MG/VIAL IV SCH (08:42)
[2018-09-18] MEDS: FOLIC ACID 1MG TABLET PO SCH (08:42)
[2018-09-18] MEDS: THIAMINE HCL 100MG TABLET PO SCH (08:42)
[2018-09-18] MEDS: CARVEDILOL 3.125 MG TABLET PO SCH (08:44)
[2018-09-18] MEDS ORDERED: GELATIN SPONGE,ABSORBABLE 12-7MM SPONGE ONE (08:51)
[2018-09-18] MEDS: BUDESONIDE 0.5MG/2ML NEB HHN SCH (09:33)
[2018-09-18] MEDS ORDERED: ENOXAPARIN 100MG/ML SYR SUBCUT NR (11:00)
[2018-09-18 12:00] VITALS: BP 142/74
[2018-09-18 15:25] VITALS: BP 142/74
[2018-09-20 09:09] LABS: COMPLEMENT C3 128 mg/dL (82-167)
[2018-09-20 15:06] LABS: ANA IFA Positive (.)
[2018-09-21 15:08] LABS: ANTI-DNA DOUBLE STRANDED QUANT 3 IU/mL (0-9)
== END 2018-09-18 17:22 | disposition home or self-care (01) | DRG 674 ==
LOC: ER 18:08 → 7WST 20:44 → EDBEDREQ 20:46 → EDBEDREQTM 20:46 → ENRESERV 23:05 → 7WST 09-13 01:00
PROVIDERS: ADMIT Internal Medicine Nephrology; ATTEND Internal Medicine Nephrology
PROC: 0JH63XZ Insertion of Tunneled Vascular Access Device into Chest Subcutaneous Tissue and Fascia, Percutaneous Approach (ICD-10-PCS; 2018-09-13)
PROC: 02HV33Z Insertion of Infusion Device into Superior Vena Cava, Percutaneous Approach (ICD-10-PCS; 2018-09-13)
PROC: B518ZZA Fluoroscopy of Superior Vena Cava, Guidance (ICD-10-PCS; 2018-09-13)
PROC: B548ZZA Ultrasonography of Superior Vena Cava, Guidance (ICD-10-PCS; 2018-09-13)
PROC: 5A1D70Z Performance of Urinary Filtration, Intermittent, Less than 6 Hours Per Day (ICD-10-PCS; 2018-09-13)
PROC: 0DB78ZX Excision of Stomach, Pylorus, Via Natural or Artificial Opening Endoscopic, Diagnostic (ICD-10-PCS; principal; 2018-09-17)
PROC: 0DBN8ZZ Excision of Sigmoid Colon, Via Natural or Artificial Opening Endoscopic (ICD-10-PCS; 2018-09-17)
PROC: 0JPT3XZ Removal of Tunneled Vascular Access Device from Trunk Subcutaneous Tissue and Fascia, Percutaneous Approach (ICD-10-PCS; 2018-09-18)
PROC: 02PY33Z Removal of Infusion Device from Great Vessel, Percutaneous Approach (ICD-10-PCS; 2018-09-18)
DX: N17.9 Acute kidney failure, unspecified (principal); I13.2 Hypertensive heart and chronic kidney disease with heart failure and with stage 5 chronic kidney disease, or end stage renal disease; Z68.41 Body mass index [BMI] 40.0-44.9, adult; I42.0 Dilated cardiomyopathy; N18.6 End stage renal disease; E87.5 Hyperkalemia; K57.90 Diverticulosis of intestine, part unspecified, without perforation or abscess without bleeding; K29.80 Duodenitis without bleeding; K29.70 Gastritis, unspecified, without bleeding; D12.5 Benign neoplasm of sigmoid colon; E11.22 Type 2 diabetes mellitus with diabetic chronic kidney disease; I48.0 Paroxysmal atrial fibrillation; E05.90 Thyrotoxicosis, unspecified without thyrotoxic crisis or storm; M19.90 Unspecified osteoarthritis, unspecified site; M10.9 Gout, unspecified; E78.5 Hyperlipidemia, unspecified; I44.7 Left bundle-branch block, unspecified; G89.29 Other chronic pain; I50.9 Heart failure, unspecified; J44.9 Chronic obstructive pulmonary disease, unspecified; G47.33 Obstructive sleep apnea (adult) (pediatric); E66.01 Morbid (severe) obesity due to excess calories; I48.91 Unspecified atrial fibrillation; D63.8 Anemia in other chronic diseases classified elsewhere; Z99.2 Dependence on renal dialysis; Z79.01 Long term (current) use of anticoagulants; Z95.810 Presence of automatic (implantable) cardiac defibrillator; Z82.49 Family history of ischemic heart disease and other diseases of the circulatory system; Z79.899 Other long term (current) drug therapy; Z79.84 Long term (current) use of oral hypoglycemic drugs; Z79.52 Long term (current) use of systemic steroids
CPT/HCPCS: 36415; 36558; 36589; 71045; 73562; 74176; 76770; 77001; 80048; 82962; 83036; 83735; 83970; 84100; 85651; 86160; 86225; 86256; 86705; 86709; 86803; 87340; 88305; 88313; 93005; 93306; 94640; 96361; 96374; 96375; 99152; 99153; 99156; 99291; C1750; C1769; C9113; J0690; J1642; J1650; J1815; J2250; J3010; J3490; J7030; J7040; J7050; J7611; J7626; G0500

== ENCOUNTER 2020-02-10 18:02 | Inpatient (IN) | payer MEDICARE, MEDICAID ==
[~2020-02-10] VITALS: Ht 172.7 cm; Wt 113.0 kg
[~2020-02-10 18:02] MED LIST changes: +FLUT1BLS IH; -FURO-151 PO; -LISI-604 PO; -MONT10TA24 PO; +MONT10TA26 PO; -PRED10TA PO; -SPIR50TA5 PO
[2020-02-10] MEDS ORDERED: SODIUM CHLORIDE 0.9% 500 ML IV ONE (18:30)
[2020-02-10 18:56] LABS: BASOPHILS % 0.7 % (0.0-2.0); EOSINOPHILS % 0.9 % (0.0-5.0); HEMOGLOBIN. 13.5 g/dL (14.0-18.0); LYMPHOCYTES % 10.9 % (20.0-50.0); MEAN CORPUSCULAR HEMOGLOBIN 29.9 pg (28.0-32.0); MEAN CORPUSCULAR VOLUME 90.4 fL (80.0-94.0); MEAN PLATELET VOLUME 8.7 fl (7.4-10.4); MONOCYTES % 7.7 % (2.0-8.0); NEUTROPHILS % 79.8 % (40.0-76.0); PLATELET 211 x1000/uL (130-400); RED BLOOD CELL COUNT 4.54 mill/uL (4.7-6.1); RED CELL DISTRIBUTION WIDTH 16.5 % (11.6-14.6)
[2020-02-10 19:02] LABS: CHLORIDE 106 mEq/L (98-107)
[2020-02-10] MEDS ORDERED: HYDROCODONE/ACETAMINOPHEN 5/325MG TABLET PO ONE (19:30)
[2020-02-11] VITALS (7 sets, daily range): BP systolic 115–167; BP diastolic 66–103
[2020-02-11] MEDS ORDERED: IPRATROPIUM/ALBUTEROL 0.5-3(2.5)MG/3ML NEB HHN PRN (02:45)
[2020-02-11] MEDS ORDERED: DEXTROSE 50% WATER 50ML SYRINGE IV PRN (02:45)
[2020-02-11] MEDS ORDERED: SODIUM POLYSTYRENE SULFONATE 15 G/60 ML BOT PO SCH (05:00)
[2020-02-11] MEDS: PANTOPRAZOLE 40MG DR TABLET PO SCH (06:21)
[2020-02-11] MEDS: BLOOD SUGAR DIAGNOSTIC STRIP TEST SCH ×4 (06:22→21:56)
[2020-02-11] MEDS: HYDROCODONE/ACETAMINOPHEN 5/325MG TABLET PO PRN ×2 (06:22→13:08)
[2020-02-11] MEDS: INSULIN LISPRO 100 UNITS/ML SUBCUT SCH ×4 (06:23→21:00)
[2020-02-11] MEDS: APIXABAN 5 MG TABLET PO SCH ×2 (08:45→17:10)
[2020-02-11] MEDS: ALLOPURINOL 300 MG TABLET PO SCH (08:45)
[2020-02-11 11:23] LABS: BASOPHILS % 0.7 % (0.0-2.0); EOSINOPHILS % 0.7 % (0.0-5.0); HEMATOCRIT. 36.9 % (42.0-52.0); HEMOGLOBIN. 12.2 g/dL (14.0-18.0); LYMPHOCYTES % 9.2 % (20.0-50.0); MEAN CORPUSCULAR VOLUME 90.5 fL (80.0-94.0); MEAN PLATELET VOLUME 8.4 fl (7.4-10.4); MONOCYTES % 7.9 % (2.0-8.0); NEUTROPHILS % 81.5 % (40.0-76.0); PLATELET 206 x1000/uL (130-400); RED BLOOD CELL COUNT 4.08 mill/uL (4.7-6.1); RED CELL DISTRIBUTION WIDTH 16.6 % (11.6-14.6)
[2020-02-11] MEDS: FLUTICASONE/VILANTEROL 200-25 BLST.W.DEV ORI SCH (12:01)
[2020-02-11 13:33] LABS: CLARITY URINE CLEAR (CLEAR); COLOR URINE YELLOW (YELLOW); KETONES URINE NEGATIVE (NEGATIVE); LEUKOCYTE ESTERASE URINE NEGATIVE (NEGATIVE); NITRITE URINE NEGATIVE (NEGATIVE); OCCULT BLOOD URINE NEGATIVE (NEGATIVE); PH URINE 5.5 (4.5-8.0); PROTEIN URINE NEGATIVE (NEGATIVE); SPECIFIC GRAVITY URINE 1.013 (1.005-1.030); UROBILINOGEN URINE 0.2 E.U./dL (0.2-1.0)
[2020-02-11] MEDS ORDERED: CLONIDINE 0.1MG TABLET PO PRN (16:45)
[2020-02-11] MEDS: MONTELUKAST SODIUM 10MG TABLET PO SCH (17:10)
[2020-02-11] MEDS: ATORVASTATIN CALCIUM 40MG TABLET PO SCH (20:27)
[2020-02-12] VITALS: BP 153/82
[2020-02-12] MEDS: HYDROCODONE/ACETAMINOPHEN 5/325MG TABLET PO PRN ×3 (00:28→18:58)
[2020-02-12 04:00] VITALS: BP 123/72
[2020-02-12] MEDS: PANTOPRAZOLE 40MG DR TABLET PO SCH (06:21)
[2020-02-12] MEDS: BLOOD SUGAR DIAGNOSTIC STRIP TEST SCH ×4 (06:50→21:00)
[2020-02-12] MEDS: INSULIN LISPRO 100 UNITS/ML SUBCUT SCH ×4 (06:50→21:00)
[2020-02-12 07:37] LABS: BASOPHILS % 0.5 % (0.0-2.0); EOSINOPHILS % 1.8 % (0.0-5.0); HEMATOCRIT. 39.3 % (42.0-52.0); HEMOGLOBIN. 12.9 g/dL (14.0-18.0); LYMPHOCYTES % 13.5 % (20.0-50.0); MEAN CORPUSCULAR HEMOGLOBIN 29.7 pg (28.0-32.0); MEAN CORPUSCULAR VOLUME 90.7 fL (80.0-94.0); MEAN PLATELET VOLUME 8.6 fl (7.4-10.4); MONOCYTES % 8.9 % (2.0-8.0); NEUTROPHILS % 75.3 % (40.0-76.0); PLATELET 194 x1000/uL (130-400); RED BLOOD CELL COUNT 4.34 mill/uL (4.7-6.1); RED CELL DISTRIBUTION WIDTH 16.8 % (11.6-14.6)
[2020-02-12 07:55] LABS: D-DIMER 0.97 mg/L FEU (<0.50); INR 1.1; PARTIAL THROMBOPLASTIN TIME 33.4 sec (23.4-31.0); PROTHROMBIN TIME 11.4 sec (9.6-11.0)
[2020-02-12 08:00] VITALS: BP 115/77
[2020-02-12 08:40] LABS: CHLORIDE 105 mEq/L (98-107)
[2020-02-12] MEDS: FLUTICASONE/VILANTEROL 200-25 BLST.W.DEV ORI SCH (10:18)
[2020-02-12] MEDS: APIXABAN 5 MG TABLET PO SCH ×2 (10:18→18:42)
[2020-02-12] MEDS: ALLOPURINOL 300 MG TABLET PO SCH (10:18)
[2020-02-12 12:00] VITALS: BP 107/71
[2020-02-12] MEDS: CARVEDILOL 6.25 MG TABLET PO SCH ×2 (12:19→22:13)
[2020-02-12] MEDS: LOSARTAN POTASSIUM 50 MG TABLET PO SCH (12:20)
[2020-02-12 16:00] VITALS: BP 117/70
[2020-02-12] MEDS: MONTELUKAST SODIUM 10MG TABLET PO SCH (18:42)
[2020-02-12 20:00] VITALS: BP_SYST 117; BP_SYST 128; BP_DIAS 79; BP_DIAS 92
[2020-02-12] MEDS: ATORVASTATIN CALCIUM 40MG TABLET PO SCH (22:13)
[2020-02-13] VITALS: BP 107/61
[2020-02-13 04:00] VITALS: BP 103/67
[2020-02-13] MEDS: BLOOD SUGAR DIAGNOSTIC STRIP TEST SCH ×2 (06:16→12:05)
[2020-02-13] MEDS: INSULIN LISPRO 100 UNITS/ML SUBCUT SCH ×2 (06:17→12:20)
[2020-02-13 06:33] LABS: TOTAL IRON BINDING CAPACITY 494 ug/dL (250-450)
[2020-02-13] MEDS ORDERED: FAMOTIDINE 20MG TABLET PO SCH (06:45)
[2020-02-13 07:59] LABS: VITAMIN B12 SERUM 622 pg/mL (211-911)
[2020-02-13 08:00] VITALS: BP 124/69
[2020-02-13] MEDS ORDERED: GUAIFENESIN 600MG ER TABLET PO SCH (09:00)
[2020-02-13] MEDS: ALLOPURINOL 300 MG TABLET PO SCH (09:34)
[2020-02-13] MEDS: LOSARTAN POTASSIUM 50 MG TABLET PO SCH (09:35)
[2020-02-13] MEDS: APIXABAN 5 MG TABLET PO SCH (09:35)
[2020-02-13] MEDS: CARVEDILOL 6.25 MG TABLET PO SCH (09:35)
[2020-02-13 11:00] VITALS: BP_SYST 152; BP_SYST 155; BP_SYST 165; BP_DIAS 107; BP_DIAS 83
[2020-02-13 12:00] VITALS: BP 115/76
[2020-02-13] MEDS ORDERED: LOSA50TA41 MT (12:00)
[2020-02-13] MEDS ORDERED: CARV12.545 MT (12:00)
[2020-02-13 15:14] VITALS: BP 115/76
== END 2020-02-13 16:30 | disposition home or self-care (01) | DRG 73 ==
LOC: ER 18:06 → 5WST 22:53 → ENRESERV 23:08
PROVIDERS: ADMIT Internal Medicine Nephrology; ATTEND Internal Medicine
PROC: 0S9D30Z Drainage of Left Knee Joint with Drainage Device, Percutaneous Approach (ICD-10-PCS; principal; 2020-02-12)
PROC: 0S9C30Z Drainage of Right Knee Joint with Drainage Device, Percutaneous Approach (ICD-10-PCS; 2020-02-12)
PROC: 3E0U3BZ Introduction of Anesthetic Agent into Joints, Percutaneous Approach (ICD-10-PCS; 2020-02-12)
DX: G90.8 Other disorders of autonomic nervous system (principal); N17.0 Acute kidney failure with tubular necrosis; I48.19 Other persistent atrial fibrillation; I13.0 Hypertensive heart and chronic kidney disease with heart failure and stage 1 through stage 4 chronic kidney disease, or unspecified chronic kidney disease; E87.1 Hypo-osmolality and hyponatremia; I50.22 Chronic systolic (congestive) heart failure; D68.59 Other primary thrombophilia; I42.0 Dilated cardiomyopathy; E11.43 Type 2 diabetes mellitus with diabetic autonomic (poly)neuropathy; R55 Syncope and collapse; D63.8 Anemia in other chronic diseases classified elsewhere; E03.9 Hypothyroidism, unspecified; E11.22 Type 2 diabetes mellitus with diabetic chronic kidney disease; E11.65 Type 2 diabetes mellitus with hyperglycemia; E66.09 Other obesity due to excess calories; E66.9 Obesity, unspecified; E78.5 Hyperlipidemia, unspecified; E87.5 Hyperkalemia; E87.8 Other disorders of electrolyte and fluid balance, not elsewhere classified; I48.91 Unspecified atrial fibrillation; J44.9 Chronic obstructive pulmonary disease, unspecified; M17.0 Bilateral primary osteoarthritis of knee; R06.02 Shortness of breath; N18.3 Chronic kidney disease, stage 3 (moderate); E86.0 Dehydration; G47.33 Obstructive sleep apnea (adult) (pediatric); M19.019 Primary osteoarthritis, unspecified shoulder; Z79.01 Long term (current) use of anticoagulants; Z82.3 Family history of stroke; Z82.49 Family history of ischemic heart disease and other diseases of the circulatory system; Z95.810 Presence of automatic (implantable) cardiac defibrillator; Z79.899 Other long term (current) drug therapy; Z68.37 Body mass index [BMI] 37.0-37.9, adult; N28.9 Disorder of kidney and ureter, unspecified
CPT/HCPCS: 36415; 71045; 73562; 73610; 76770; 80048; 80053; 80061; 81003; 82607; 82962; 83036; 83540; 83550; 83880; 84484; 85025; 85044; 85379; 93005; 93306; 93880; 93970; 97162; 99285; J1815; J7040

== ENCOUNTER 2020-05-16 01:15 | Inpatient (IN) | payer MEDICARE, MEDICAID ==
[~2020-05-16] VITALS: Ht 167.6 cm; Wt 135.6 kg
[~2020-05-16 01:15] MED LIST changes: +CARV12.545 MT; +LOSA50TA41 MT; -METF-414 PO
[2020-05-16] MEDS ORDERED: NITROGLYCERIN OINT 1GM/INCH UDPKT TD ONE (03:30)
[2020-05-16] MEDS ORDERED: ASPIRIN 81MG TABLET PO ONE (03:30)
[2020-05-16 03:56] LABS: BASOPHILS % 0.4 % (0.0-2.0); EOSINOPHILS % 2.9 % (0.0-5.0); HEMATOCRIT. 36.5 % (42.0-52.0); HEMOGLOBIN. 11.9 g/dL (14.0-18.0); LYMPHOCYTES % 13.9 % (20.0-50.0); MEAN PLATELET VOLUME 10.1 fl (7.4-10.4); MONOCYTES % 8.4 % (2.0-8.0); NEUTROPHILS % 74.4 % (40.0-76.0); PLATELET 205 x1000/uL (130-400); RED BLOOD CELL COUNT 3.97 mill/uL (4.7-6.1); RED CELL DISTRIBUTION WIDTH 15.1 % (11.6-14.6)
[2020-05-16 05:14] LABS: CHLORIDE 105 mEq/L (98-107)
[2020-05-16] MEDS ORDERED: CLONIDINE 0.1MG TABLET PO PRN (07:30)
[2020-05-16] MEDS ORDERED: MAGNESIUM/ALUMINUM HYDROXIDE/SIMETHICONE 30ML UDC PO PRN (07:30)
[2020-05-16] MEDS ORDERED: ACETAMINOPHEN 325MG TABLET PO PRN ×2 (07:30)
[2020-05-16] MEDS ORDERED: GUAIFENESIN 200MG/10ML SUGAR FREE UDC PO PRN (07:30)
[2020-05-16] MEDS ORDERED: DOCUSATE SODIUM 100MG CAPSULE PO PRN (07:30)
[2020-05-16] MEDS ORDERED: NITROGLYCERIN 0.4MG TABLET SL SL PRN (07:30)
[2020-05-16] MEDS ORDERED: TRAMADOL 50MG TABLET PO PRN (07:30)
[2020-05-16] MEDS ORDERED: ONDANSETRON HCL 4MG/2ML INJ IV PRN (07:30)
[2020-05-16] MEDS ORDERED: IPRATROPIUM/ALBUTEROL 0.5-3(2.5)MG/3ML NEB HHN PRN (07:30)
[2020-05-16] MEDS ORDERED: APIXABAN 5 MG TABLET PO SCH (09:00)
[2020-05-16] MEDS ORDERED: SODIUM POLYSTYRENE SULFONATE 15 G/60 ML BOT PO NR (09:00)
[2020-05-16] MEDS: CITRIC ACID/SODIUM CITRATE SOLN 15ML UDC PO SCH ×3 (09:23→18:10)
[2020-05-16] MEDS: FAMOTIDINE 20MG TABLET PO SCH (09:23)
[2020-05-16] MEDS: ZINC SULFATE 220 MG ( 50 ) CAPSULE PO SCH (09:23)
[2020-05-16] MEDS ORDERED: REGADENOSON 0.4 MG/5 ML IV NR (14:30)
[2020-05-16] MEDS: ASCORBIC ACID 500 MG TABLET PO SCH ×2 (16:06→22:13)
[2020-05-16 16:18] LABS: CREATINE KINASE MB FRACTION 2.4 ng/mL (0.5-3.6)
[2020-05-16 16:20] LABS: TOTAL IRON BINDING CAPACITY 309 ug/dL (250-450)
[2020-05-16 16:30] LABS: FOLIC ACID (FOLATE) SERUM 12.4 ng/mL (>5.38)
[2020-05-16 16:52] VITALS: BP 101/62
[2020-05-16 17:00] VITALS: BP 112/59
[2020-05-16] MEDS ORDERED: PNEUMOCOCCAL 23-VAL P-SAC VAC 0.5 ML IM ONE (18:00)
[2020-05-16] MEDS: CARVEDILOL 3.125 MG TABLET PO SCH (18:00)
[2020-05-16] MEDS ORDERED: INFLUENZA VACCINE 05/PF 0.5 ML VIAL IM ONE (18:00)
[2020-05-16 20:00] VITALS: BP 109/70
[2020-05-16] MEDS ORDERED: ZOLPIDEM TARTRATE 5MG TABLET PO PRN (21:00)
[2020-05-16 22:00] VITALS: BP 115/68
[2020-05-16] MEDS: ATORVASTATIN CALCIUM 40MG TABLET PO SCH (22:13)
[2020-05-16 23:46] LABS: CREATINE KINASE MB FRACTION 2.6 ng/mL (0.5-3.6)
[2020-05-17] VITALS (9 sets, daily range): BP systolic 95–126; BP diastolic 53–75
[2020-05-17 05:33] LABS: BASOPHILS % 0.5 % (0.0-2.0); EOSINOPHILS % 2.9 % (0.0-5.0); HEMATOCRIT. 39.3 % (42.0-52.0); HEMOGLOBIN. 12.9 g/dL (14.0-18.0); LYMPHOCYTES % 14.8 % (20.0-50.0); MEAN CORPUSCULAR VOLUME 91.7 fL (80.0-94.0); MEAN PLATELET VOLUME 9.3 fl (7.4-10.4); MONOCYTES % 7.8 % (2.0-8.0); PLATELET 203 x1000/uL (130-400); RED BLOOD CELL COUNT 4.29 mill/uL (4.7-6.1); RED CELL DISTRIBUTION WIDTH 15.4 % (11.6-14.6)
[2020-05-17 05:58] LABS: CHLORIDE 106 mEq/L (98-107)
[2020-05-17 06:22] LABS: PHOSPHORUS 6.5 mg/dL (2.5-4.9)
[2020-05-17 06:23] LABS: LDL CHOLESTEROL 97 mg/dL (5-100)
[2020-05-17 06:25] LABS: HDL CHOLESTEROL 41 mg/dL (40-59)
[2020-05-17] MEDS: FAMOTIDINE 20MG TABLET PO SCH (09:22)
[2020-05-17] MEDS: ZINC SULFATE 220 MG ( 50 ) CAPSULE PO SCH (09:22)
[2020-05-17] MEDS: ASCORBIC ACID 500 MG TABLET PO SCH ×2 (09:22→20:46)
[2020-05-17] MEDS: ASPIRIN 325MG EC TABLET PO SCH (09:22)
[2020-05-17] MEDS: CITRIC ACID/SODIUM CITRATE SOLN 15ML UDC PO SCH ×3 (09:23→18:00)
[2020-05-17] MEDS ORDERED: SODIUM POLYSTYRENE SULFONATE 15 G/60 ML BOT PO ONE ×2 (09:45→10:00)
[2020-05-17] MEDS ORDERED: REGADENOSON 0.4 MG/5 ML IV ONE (10:46)
[2020-05-17] MEDS: CARVEDILOL 3.125 MG TABLET PO SCH (18:20)
[2020-05-17] MEDS: ATORVASTATIN CALCIUM 40MG TABLET PO SCH (20:46)
[2020-05-18 04:00] VITALS: BP 104/59
[2020-05-18] MEDS: CARVEDILOL 3.125 MG TABLET PO SCH ×2 (05:58→17:06)
[2020-05-18 07:33] LABS: BASOPHILS % 0.4 % (0.0-2.0); EOSINOPHILS % 3.6 % (0.0-5.0); HEMATOCRIT. 37.4 % (42.0-52.0); HEMOGLOBIN. 12.2 g/dL (14.0-18.0); LYMPHOCYTES % 17.1 % (20.0-50.0); MEAN CORPUSCULAR HEMOGLOBIN 30.2 pg (28.0-32.0); MEAN CORPUSCULAR VOLUME 92.4 fL (80.0-94.0); MEAN PLATELET VOLUME 9.3 fl (7.4-10.4); NEUTROPHILS % 69.9 % (40.0-76.0); PLATELET 191 x1000/uL (130-400); RED BLOOD CELL COUNT 4.05 mill/uL (4.7-6.1); RED CELL DISTRIBUTION WIDTH 15.6 % (11.6-14.6)
[2020-05-18 07:49] VITALS: BP 124/73
[2020-05-18] MEDS: ASPIRIN 325MG EC TABLET PO SCH (08:30)
[2020-05-18] MEDS: CITRIC ACID/SODIUM CITRATE SOLN 15ML UDC PO SCH ×3 (08:30→17:05)
[2020-05-18] MEDS: ASCORBIC ACID 500 MG TABLET PO SCH ×2 (08:31→23:10)
[2020-05-18] MEDS: ZINC SULFATE 220 MG ( 50 ) CAPSULE PO SCH (08:31)
[2020-05-18] MEDS: FAMOTIDINE 20MG TABLET PO SCH (08:31)
[2020-05-18 09:41] LABS: CHLORIDE 107 mEq/L (98-107)
[2020-05-18 09:52] LABS: PHOSPHORUS 5.4 mg/dL (2.5-4.9)
[2020-05-18] MEDS ORDERED: METOLAZONE 2.5MG TABLET PO NR (10:00)
[2020-05-18] MEDS: LOSARTAN POTASSIUM 25 MG TABLET PO SCH (10:21)
[2020-05-18] MEDS: FUROSEMIDE 40MG TABLET PO SCH (10:21)
[2020-05-18 12:00] VITALS: BP 99/47
[2020-05-18 15:55] VITALS: BP 105/62
[2020-05-18] MEDS: ATORVASTATIN CALCIUM 40MG TABLET PO SCH (23:10)
[2020-05-18 23:50] VITALS: BP 98/58
[2020-05-19 03:42] VITALS: BP 97/57
[2020-05-19] MEDS: CARVEDILOL 3.125 MG TABLET PO SCH (06:00)
[2020-05-19 06:03] LABS: CHLORIDE 108 mEq/L (98-107)
[2020-05-19 06:10] LABS: BASOPHILS % 0.6 % (0.0-2.0); EOSINOPHILS % 3.7 % (0.0-5.0); LYMPHOCYTES % 19.7 % (20.0-50.0); MEAN CORPUSCULAR HEMOGLOBIN 29.8 pg (28.0-32.0); MEAN CORPUSCULAR VOLUME 91.9 fL (80.0-94.0); PLATELET 183 x1000/uL (130-400); RED CELL DISTRIBUTION WIDTH 15.5 % (11.6-14.6)
[2020-05-19 06:11] LABS: PHOSPHORUS 5.2 mg/dL (2.5-4.9)
[2020-05-19 08:00] VITALS: BP 115/72
[2020-05-19] MEDS: ASCORBIC ACID 500 MG TABLET PO SCH (08:47)
[2020-05-19] MEDS: FUROSEMIDE 40MG TABLET PO SCH (08:47)
[2020-05-19] MEDS: ASPIRIN 325MG EC TABLET PO SCH (08:47)
[2020-05-19] MEDS: CITRIC ACID/SODIUM CITRATE SOLN 15ML UDC PO SCH ×2 (08:47→13:05)
[2020-05-19] MEDS: FAMOTIDINE 20MG TABLET PO SCH (08:47)
[2020-05-19] MEDS: ZINC SULFATE 220 MG ( 50 ) CAPSULE PO SCH (08:47)
[2020-05-19] MEDS: LOSARTAN POTASSIUM 25 MG TABLET PO SCH (08:47)
[2020-05-19 10:36] VITALS: BP 115/72
[2020-05-19 11:00] VITALS: BP 115/72
[2020-05-19 12:00] VITALS: BP 113/76
== END 2020-05-19 13:59 | disposition home or self-care (01) | DRG 205 ==
LOC: ER 01:15 → 5EST 04:51 → SUPCPDRO 07:19 → ENRESERV 15:32
PROVIDERS: ADMIT Internal Medicine; ATTEND Internal Medicine
PROC: 5A09457 Assistance with Respiratory Ventilation, 24-96 Consecutive Hours, Continuous Positive Airway Pressure (ICD-10-PCS; principal; 2020-05-16)
DX: M94.0 Chondrocostal junction syndrome [Tietze] (principal); N17.0 Acute kidney failure with tubular necrosis; E87.1 Hypo-osmolality and hyponatremia; E87.2 Acidosis; I42.0 Dilated cardiomyopathy; Z68.42 Body mass index [BMI] 45.0-49.9, adult; I13.0 Hypertensive heart and chronic kidney disease with heart failure and stage 1 through stage 4 chronic kidney disease, or unspecified chronic kidney disease; D63.8 Anemia in other chronic diseases classified elsewhere; E11.22 Type 2 diabetes mellitus with diabetic chronic kidney disease; E66.01 Morbid (severe) obesity due to excess calories; E78.00 Pure hypercholesterolemia, unspecified; E87.5 Hyperkalemia; I48.91 Unspecified atrial fibrillation; N18.9 Chronic kidney disease, unspecified; E78.5 Hyperlipidemia, unspecified; I50.9 Heart failure, unspecified; J44.9 Chronic obstructive pulmonary disease, unspecified; Z79.01 Long term (current) use of anticoagulants; Z79.84 Long term (current) use of oral hypoglycemic drugs; Z79.899 Other long term (current) drug therapy; Z82.49 Family history of ischemic heart disease and other diseases of the circulatory system; Z95.0 Presence of cardiac pacemaker
CPT/HCPCS: 36415; 71045; 78452; 80053; 80061; 82550; 82553; 82607; 82746; 83036; 83540; 83550; 83735; 83880; 84100; 84484; 85025; 90686; 90732; 93005; 93017; 93970; 97162; 97165; 99285; A9500; J2785

== ENCOUNTER 2020-11-29 14:58 | Inpatient (IN) | payer MEDICARE, MEDICAID ==
[~2020-11-29] VITALS: Ht 175.3 cm; Wt 155.6 kg
[~2020-11-29 14:58] MED LIST changes: -MONT10TA26 PO; +MONT10TA32 PO; +PANT20TA17 PO; -PANT20TA3 PO
[2020-11-29 15:41] LABS: HEMOGLOBIN. 11.1 g/dL (14.0-18.0); MEAN CORPUSCULAR HEMOGLOBIN 28.5 pg (28.0-32.0); MEAN CORPUSCULAR VOLUME 84.8 fL (80.0-94.0); MEAN PLATELET VOLUME 8.6 fl (7.4-10.4); PLATELET 196 x1000/uL (130-400); RED BLOOD CELL COUNT 3.89 mill/uL (4.7-6.1); RED CELL DISTRIBUTION WIDTH 19.4 % (11.6-14.6)
[2020-11-29 15:45] LABS: CHLORIDE 98 mEq/L (98-107)
[2020-11-29 16:17] LABS: PLATELET ESTIMATE NORMAL
[2020-11-29] MEDS ORDERED: METHYLPREDNISOLONE SOD SUCC 125 MG/2 ML VIAL IV ONE (16:30)
[2020-11-29] MEDS: METHYLPREDNISOLONE SOD SUCC 40 MG/ML VIAL IV SCH (18:00)
[2020-11-29] MEDS ORDERED: HYDROMORPHONE HCL/PF 2MG/ML CPJ IV PRN (18:15)
[2020-11-29] MEDS ORDERED: IPRATROPIUM/ALBUTEROL 0.5-3(2.5)MG/3ML NEB HHN PRN (18:15)
[2020-11-29] MEDS ORDERED: MAGNESIUM/ALUMINUM HYDROXIDE/SIMETHICONE 30ML UDC PO PRN (18:15)
[2020-11-29] MEDS ORDERED: CLONIDINE 0.1MG TABLET PO PRN (18:15)
[2020-11-29] MEDS ORDERED: ACETAMINOPHEN 325MG TABLET PO PRN (18:15)
[2020-11-29] MEDS ORDERED: ONDANSETRON HCL 4MG/2ML INJ IV PRN (18:15)
[2020-11-29] MEDS ORDERED: TRAMADOL 50MG TABLET PO PRN (18:30)
[2020-11-29] MEDS: APIXABAN 5 MG TABLET PO SCH (19:12)
[2020-11-29] MEDS: MONTELUKAST SODIUM 10MG TABLET PO SCH (19:12)
[2020-11-29 20:00] VITALS: BP 142/88
[2020-11-29] MEDS ORDERED: DEXTROSE 50% WATER 50ML SYRINGE IV PRN (21:15)
[2020-11-29] MEDS: CARVEDILOL 12.5MG TABLET PO SCH (21:37)
[2020-11-29] MEDS: ATORVASTATIN CALCIUM 40MG TABLET PO SCH (21:37)
[2020-11-30] VITALS: BP 126/63
[2020-11-30 00:49] LABS: CREATINE KINASE MB FRACTION 2.4 ng/mL (0.5-3.6)
[2020-11-30] MEDS: METHYLPREDNISOLONE SOD SUCC 40 MG/ML VIAL IV SCH ×3 (02:17→17:54)
[2020-11-30 04:00] VITALS: BP 119/71
[2020-11-30 06:11] LABS: HEMATOCRIT. 34.5 % (42.0-52.0); HEMOGLOBIN. 11.4 g/dL (14.0-18.0); MEAN CORPUSCULAR VOLUME 84.8 fL (80.0-94.0); MEAN PLATELET VOLUME 9.7 fl (7.4-10.4); PLATELET 224 x1000/uL (130-400); RED BLOOD CELL COUNT 4.07 mill/uL (4.7-6.1); RED CELL DISTRIBUTION WIDTH 18.6 % (11.6-14.6)
[2020-11-30 06:41] LABS: CHLORIDE 97 mEq/L (98-107)
[2020-11-30 06:59] LABS: HDL CHOLESTEROL 60 mg/dL (40-59)
[2020-11-30 07:01] LABS: CREATINE KINASE 476 IU/L (39-308)
[2020-11-30 07:02] LABS: LDL CHOLESTEROL 66 mg/dL (5-100)
[2020-11-30 07:04] LABS: CREATINE KINASE MB FRACTION 2.4 ng/mL (0.5-3.6)
[2020-11-30 08:00] VITALS: BP 126/71
[2020-11-30] MEDS: BLOOD SUGAR DIAGNOSTIC STRIP TEST SCH ×4 (08:08→21:52)
[2020-11-30] MEDS: APIXABAN 5 MG TABLET PO SCH ×2 (10:16→17:52)
[2020-11-30] MEDS: LOSARTAN POTASSIUM 50 MG TABLET PO SCH (10:16)
[2020-11-30] MEDS: ALLOPURINOL 300 MG TABLET PO SCH (10:16)
[2020-11-30] MEDS: CARVEDILOL 12.5MG TABLET PO SCH ×2 (10:17→21:50)
[2020-11-30] MEDS: INSULIN LISPRO 100 UNITS/ML SUBCUT SCH ×4 (10:18→21:51)
[2020-11-30 12:00] VITALS: BP 127/70
[2020-11-30 16:00] VITALS: BP 122/65
[2020-11-30] MEDS: MONTELUKAST SODIUM 10MG TABLET PO SCH (17:52)
[2020-11-30] MEDS: IPRATROPIUM/ALBUTEROL 0.5-3(2.5)MG/3ML NEB HHN SCH ×3 (18:00→21:55)
[2020-11-30 20:00] VITALS: BP 126/64
[2020-11-30] MEDS: ATORVASTATIN CALCIUM 40MG TABLET PO SCH (21:50)
[2020-11-30 23:34] LABS: PLATELET ESTIMATE NORMAL
[2020-12-01] VITALS: BP 126/72
[2020-12-01] MEDS: METHYLPREDNISOLONE SOD SUCC 40 MG/ML VIAL IV SCH ×3 (01:11→22:19)
[2020-12-01 04:00] VITALS: BP 125/65
[2020-12-01 07:42] VITALS: BP 103/55
[2020-12-01] MEDS: BLOOD SUGAR DIAGNOSTIC STRIP TEST SCH ×4 (07:44→21:00)
[2020-12-01] MEDS: LOSARTAN POTASSIUM 50 MG TABLET PO SCH (08:38)
[2020-12-01] MEDS: CARVEDILOL 12.5MG TABLET PO SCH ×2 (08:38→22:18)
[2020-12-01] MEDS: ALLOPURINOL 300 MG TABLET PO SCH (08:39)
[2020-12-01] MEDS: APIXABAN 5 MG TABLET PO SCH ×2 (08:39→17:40)
[2020-12-01] MEDS: INSULIN LISPRO 100 UNITS/ML SUBCUT SCH ×4 (08:43→22:20)
[2020-12-01] MEDS: IPRATROPIUM/ALBUTEROL 0.5-3(2.5)MG/3ML NEB HHN SCH ×4 (09:29→20:41)
[2020-12-01] MEDS: GUAIFENESIN 600MG ER TABLET PO SCH ×2 (11:36→22:19)
[2020-12-01 12:00] VITALS: BP 134/60
[2020-12-01 16:00] VITALS: BP 133/67
[2020-12-01] MEDS: MONTELUKAST SODIUM 10MG TABLET PO SCH (17:40)
[2020-12-01 20:00] VITALS: BP 126/69
[2020-12-01] MEDS: ATORVASTATIN CALCIUM 40MG TABLET PO SCH (22:19)
[2020-12-02] VITALS (7 sets, daily range): BP systolic 109–132; BP diastolic 54–69
[2020-12-02] MEDS: IPRATROPIUM/ALBUTEROL 0.5-3(2.5)MG/3ML NEB HHN SCH ×3 (02:26→12:45)
[2020-12-02] MEDS: BLOOD SUGAR DIAGNOSTIC STRIP TEST SCH ×2 (06:39→13:03)
[2020-12-02] MEDS: ALLOPURINOL 300 MG TABLET PO SCH (08:17)
[2020-12-02] MEDS: LOSARTAN POTASSIUM 50 MG TABLET PO SCH (08:17)
[2020-12-02] MEDS: APIXABAN 5 MG TABLET PO SCH (08:17)
[2020-12-02] MEDS: GUAIFENESIN 600MG ER TABLET PO SCH (08:17)
[2020-12-02] MEDS: METHYLPREDNISOLONE SOD SUCC 40 MG/ML VIAL IV SCH (08:17)
[2020-12-02] MEDS: CARVEDILOL 12.5MG TABLET PO SCH (08:17)
[2020-12-02] MEDS: INSULIN LISPRO 100 UNITS/ML SUBCUT SCH ×2 (08:18→13:05)
[2020-12-03] MEDS ORDERED: GUAI600T44 PO (13:39)
[2020-12-03] MEDS ORDERED: MELA5TAB21 MT (13:48)
[2020-12-03] MEDS ORDERED: FURO40TA5 PO (13:48)
[2020-12-03] MEDS ORDERED: CALC0.253 PO (13:48)
[2020-12-03] MEDS ORDERED: OMEP20TA2 PO (13:48)
[2020-12-03] MEDS ORDERED: PRED10TA23 PO (13:48)
[2020-12-03] MEDS ORDERED: AZIT250T12 PO (13:48)
[2020-12-03] MEDS ORDERED: METO2.5T2 PO (13:48)
== END 2020-12-02 17:18 | disposition home health service (06) | DRG 202 ==
LOC: ER 14:58 → 6WST 17:12 → ENRESERV 19:31
PROVIDERS: ADMIT Hospitalist; ATTEND Hospitalist
DX: J45.901 Unspecified asthma with (acute) exacerbation (principal); D68.59 Other primary thrombophilia; I13.0 Hypertensive heart and chronic kidney disease with heart failure and stage 1 through stage 4 chronic kidney disease, or unspecified chronic kidney disease; I50.42 Chronic combined systolic (congestive) and diastolic (congestive) heart failure; Z68.43 Body mass index [BMI] 50.0-59.9, adult; M10.9 Gout, unspecified; R73.9 Hyperglycemia, unspecified; E78.5 Hyperlipidemia, unspecified; E66.01 Morbid (severe) obesity due to excess calories; N18.9 Chronic kidney disease, unspecified; Z82.49 Family history of ischemic heart disease and other diseases of the circulatory system; Z95.0 Presence of cardiac pacemaker
CPT/HCPCS: 36415; 71045; 80053; 80061; 82550; 82553; 82962; 83036; 83880; 84484; 85025; 93005; 93306; 93970; 94640; 99291; J1815; J2920; J2930

== ENCOUNTER 2020-12-03 02:49 | Inpatient (IN) | payer MEDICARE, MEDICAID ==
[~2020-12-03] VITALS: Ht 175.3 cm; Wt 139.7 kg
[2020-12-03] MEDS ORDERED: ONDANSETRON HCL 4MG/2ML INJ IV STA (03:29)
[2020-12-03] MEDS ORDERED: MORPHINE SULFATE 4 MG/ML CPJ (NOT FOR IM USE) IV STA (03:29)
[2020-12-03 03:49] LABS: HEMOGLOBIN. 11.3 g/dL (14.0-18.0); MEAN CORPUSCULAR HEMOGLOBIN 26.8 pg (28.0-32.0); MEAN CORPUSCULAR VOLUME 85.2 fL (80.0-94.0); MEAN PLATELET VOLUME 9.8 fl (7.4-10.4); PLATELET 256 x1000/uL (130-400); RED BLOOD CELL COUNT 4.22 mill/uL (4.7-6.1); RED CELL DISTRIBUTION WIDTH 18.8 % (11.6-14.6)
[2020-12-03 03:54] LABS: CHLORIDE 110 mEq/L (98-107)
[2020-12-03 03:58] LABS: INR 1.1; PROTHROMBIN TIME 12.1 sec (9.6-11.0)
[2020-12-03 04:29] LABS: CLARITY URINE CLEAR (CLEAR); COLOR URINE YELLOW (YELLOW); KETONES URINE NEGATIVE (NEGATIVE); LEUKOCYTE ESTERASE URINE NEGATIVE (NEGATIVE); NITRITE URINE NEGATIVE (NEGATIVE); OCCULT BLOOD URINE NEGATIVE (NEGATIVE); PROTEIN URINE NEGATIVE (NEGATIVE); SPECIFIC GRAVITY URINE 1.015 (1.005-1.030); UROBILINOGEN URINE 0.2 E.U./dL (0.2-1.0)
[2020-12-03 07:46] LABS: PLATELET ESTIMATE NORMAL
[2020-12-03 12:00] VITALS: BP 136/88
[2020-12-03 12:52] VITALS: BP 136/88
[2020-12-03] MEDS ORDERED: ONDANSETRON HCL 4MG/2ML INJ IV PRN (13:00)
[2020-12-03] MEDS ORDERED: LACTULOSE 20G/30ML UDC PO SCH (13:00)
[2020-12-03] MEDS ORDERED: DEXTROSE 50% WATER 50ML SYRINGE IV PRN (13:15)
[2020-12-03] MEDS ORDERED: GUAI600T44 PO (13:39)
[2020-12-03] MEDS ORDERED: CALC0.253 PO (13:48)
[2020-12-03] MEDS ORDERED: AZIT250T12 PO (13:48)
[2020-12-03] MEDS ORDERED: FURO40TA5 PO (13:48)
[2020-12-03] MEDS ORDERED: OMEP20TA2 PO (13:48)
[2020-12-03] MEDS ORDERED: METO2.5T2 PO (13:48)
[2020-12-03] MEDS ORDERED: PRED10TA23 PO (13:48)
[2020-12-03] MEDS ORDERED: MELA5TAB21 MT (13:48)
[2020-12-03] MEDS: SODIUM CHLORIDE 0.45% 1,000 ML IV SCH (14:22)
[2020-12-03 16:00] VITALS: BP 122/63
[2020-12-03] MEDS ORDERED: IPRATROPIUM/ALBUTEROL 0.5-3(2.5)MG/3ML NEB HHN PRN (16:00)
[2020-12-03] MEDS: BLOOD SUGAR DIAGNOSTIC STRIP TEST SCH ×2 (17:06→20:55)
[2020-12-03] MEDS: INSULIN LISPRO 100 UNITS/ML SUBCUT SCH ×2 (17:06→20:56)
[2020-12-03] MEDS: DOCUSATE SODIUM 100MG CAPSULE PO SCH (17:45)
[2020-12-03] MEDS: APIXABAN 5 MG TABLET PO SCH (17:45)
[2020-12-03] MEDS: MONTELUKAST SODIUM 10MG TABLET PO SCH (17:45)
[2020-12-03 20:00] VITALS: BP 127/70
[2020-12-03] MEDS: GUAIFENESIN 600MG ER TABLET PO SCH (20:55)
[2020-12-03] MEDS: CARVEDILOL 12.5MG TABLET PO SCH (20:55)
[2020-12-03] MEDS: ATORVASTATIN CALCIUM 40MG TABLET PO SCH (20:55)
[2020-12-04] VITALS: BP 132/68
[2020-12-04 04:00] VITALS: BP 140/74
[2020-12-04] MEDS: OMEPRAZOLE 20MG CAPSULE EXTENDED RELEASE PO SCH (05:53)
[2020-12-04] MEDS: BLOOD SUGAR DIAGNOSTIC STRIP TEST SCH ×4 (05:53→21:24)
[2020-12-04] MEDS: INSULIN LISPRO 100 UNITS/ML SUBCUT SCH ×4 (06:19→21:26)
[2020-12-04 06:39] LABS: HEMATOCRIT. 37.2 % (42.0-52.0); HEMOGLOBIN. 11.9 g/dL (14.0-18.0); MEAN CORPUSCULAR HEMOGLOBIN 27.8 pg (28.0-32.0); MEAN CORPUSCULAR VOLUME 86.7 fL (80.0-94.0); PLATELET 176 x1000/uL (130-400); RED BLOOD CELL COUNT 4.29 mill/uL (4.7-6.1); RED CELL DISTRIBUTION WIDTH 18.8 % (11.6-14.6)
[2020-12-04 08:00] VITALS: BP 125/72
[2020-12-04] MEDS ORDERED: FUROSEMIDE 40MG TABLET PO SCH (09:00)
[2020-12-04] MEDS ORDERED: METOLAZONE 2.5MG TABLET PO SCH (09:00)
[2020-12-04] MEDS: ALLOPURINOL 300 MG TABLET PO SCH (09:25)
[2020-12-04] MEDS: GUAIFENESIN 600MG ER TABLET PO SCH ×2 (09:25→21:24)
[2020-12-04] MEDS: APIXABAN 5 MG TABLET PO SCH ×2 (09:25→16:43)
[2020-12-04] MEDS: DOCUSATE SODIUM 100MG CAPSULE PO SCH ×2 (09:25→16:43)
[2020-12-04] MEDS: SODIUM CHLORIDE 0.45% 1,000 ML IV SCH (09:26)
[2020-12-04] MEDS: ACETAMINOPHEN 325MG TABLET PO PRN (09:26)
[2020-12-04] MEDS: CARVEDILOL 12.5MG TABLET PO SCH ×2 (10:15→21:24)
[2020-12-04] MEDS ORDERED: BISACODYL 10MG SUPP PR PRN (11:45)
[2020-12-04 12:00] VITALS: BP 98/53
[2020-12-04] MEDS ORDERED: NA PHOS,M-B/NA PHOS,DI-BA ENEMA 118ML PR SCH (12:00)
[2020-12-04] MEDS ORDERED: SORBITOL 70% SOLN 30ML PO SCH (12:30)
[2020-12-04] MEDS: SODIUM CHLORIDE 0.9% 1,000 ML IV SCH ×2 (12:44→23:47)
[2020-12-04 13:01] LABS: BG BASE EXCESS 2.1 mmol/L (-2.0-2.0); BG CARBOXYHEMOGLOBIN 0.3 % (0.5-1.5); BG DEOXYHEMOGLOBIN 2.6 % (0.0-5.0); BG FRACTION INSPIRED OXYGEN 28; BG HCO3 ACT 30.6 mmol/L (22.0-26.0); BG METHEMOGLOBIN 0.3 % (0.0-1.5); BG OXYGEN SATURATION 97.4 % (92.0-98.5); BG OXYHEMOGLOBIN 96.8 % (94.0-97.0); BG PCO2 68.4 mmHg (35.0-45.0); BG PH 7.268 (7.350-7.450); BG PO2 108.3 mmHg (75.0-100.0); BG SAMPLE SITE RIGHT RADIAL; BG TOTAL HEMOGLOBIN 11.6 g/dL (12.0-18.0); BG VENT MODE NASAL CANNULA
[2020-12-04 16:00] VITALS: BP 122/59
[2020-12-04] MEDS: MONTELUKAST SODIUM 10MG TABLET PO SCH (16:43)
[2020-12-04 17:09] LABS: PLATELET ESTIMATE NORMAL
[2020-12-04 20:00] VITALS: BP 113/59
[2020-12-04] MEDS: ATORVASTATIN CALCIUM 40MG TABLET PO SCH (21:24)
[2020-12-05 00:30] VITALS: BP 111/73
[2020-12-05 04:00] VITALS: BP 100/67
[2020-12-05] MEDS: OMEPRAZOLE 20MG CAPSULE EXTENDED RELEASE PO SCH (06:38)
[2020-12-05] MEDS: BLOOD SUGAR DIAGNOSTIC STRIP TEST SCH ×4 (06:38→21:09)
[2020-12-05 06:43] LABS: HEMATOCRIT. 32.1 % (42.0-52.0); HEMOGLOBIN. 10.4 g/dL (14.0-18.0); MEAN CORPUSCULAR HEMOGLOBIN 27.9 pg (28.0-32.0); MEAN CORPUSCULAR VOLUME 86.1 fL (80.0-94.0); MEAN PLATELET VOLUME 10.3 fl (7.4-10.4); PLATELET 162 x1000/uL (130-400); RED BLOOD CELL COUNT 3.73 mill/uL (4.7-6.1); RED CELL DISTRIBUTION WIDTH 18.6 % (11.6-14.6)
[2020-12-05] MEDS: INSULIN LISPRO 100 UNITS/ML SUBCUT SCH ×4 (06:43→21:11)
[2020-12-05 06:47] LABS: PHOSPHORUS 5.9 mg/dL (2.5-4.9)
[2020-12-05 08:00] VITALS: BP 134/59
[2020-12-05] MEDS: ALLOPURINOL 300 MG TABLET PO SCH (09:08)
[2020-12-05] MEDS: GUAIFENESIN 600MG ER TABLET PO SCH ×2 (09:08→21:09)
[2020-12-05] MEDS: SODIUM CHLORIDE 0.9% 1,000 ML IV SCH ×2 (09:08→21:09)
[2020-12-05] MEDS: APIXABAN 5 MG TABLET PO SCH ×2 (09:08→18:20)
[2020-12-05] MEDS: DOCUSATE SODIUM 100MG CAPSULE PO SCH ×2 (09:08→18:20)
[2020-12-05] MEDS: CARVEDILOL 12.5MG TABLET PO SCH ×2 (09:09→21:09)
[2020-12-05 12:00] VITALS: BP 128/63
[2020-12-05 12:12] LABS: CREATINE KINASE 547 IU/L (39-308)
[2020-12-05] MEDS ORDERED: SORBITOL 70% SOLN 30ML PO NR (13:30)
[2020-12-05 16:00] VITALS: BP 122/58
[2020-12-05 16:12] LABS: PLATELET ESTIMATE NORMAL
[2020-12-05] MEDS: MONTELUKAST SODIUM 10MG TABLET PO SCH (18:20)
[2020-12-05 20:48] VITALS: BP 131/72
[2020-12-05] MEDS: ATORVASTATIN CALCIUM 40MG TABLET PO SCH (21:09)
[2020-12-06] VITALS: BP 119/63
[2020-12-06 04:00] VITALS: BP 162/82
[2020-12-06] MEDS: SODIUM CHLORIDE 0.9% 1,000 ML IV SCH ×2 (05:00→18:31)
[2020-12-06] MEDS: INSULIN LISPRO 100 UNITS/ML SUBCUT SCH ×4 (06:18→21:02)
[2020-12-06] MEDS: BLOOD SUGAR DIAGNOSTIC STRIP TEST SCH ×4 (06:18→21:03)
[2020-12-06] MEDS: OMEPRAZOLE 20MG CAPSULE EXTENDED RELEASE PO SCH (06:29)
[2020-12-06] MEDS: GUAIFENESIN 600MG ER TABLET PO SCH ×2 (08:31→21:03)
[2020-12-06] MEDS: APIXABAN 5 MG TABLET PO SCH ×2 (08:31→18:30)
[2020-12-06] MEDS: ALLOPURINOL 300 MG TABLET PO SCH (08:31)
[2020-12-06] MEDS: CARVEDILOL 12.5MG TABLET PO SCH ×2 (08:31→21:03)
[2020-12-06] MEDS: DOCUSATE SODIUM 100MG CAPSULE PO SCH ×2 (08:32→18:30)
[2020-12-06 12:00] VITALS: BP 127/60
[2020-12-06 14:53] LABS: HEMATOCRIT. 28.5 % (42.0-52.0); HEMOGLOBIN. 9.5 g/dL (14.0-18.0); MEAN CORPUSCULAR VOLUME 84.1 fL (80.0-94.0); MEAN PLATELET VOLUME 8.8 fl (7.4-10.4); PLATELET 173 x1000/uL (130-400); RED BLOOD CELL COUNT 3.39 mill/uL (4.7-6.1); RED CELL DISTRIBUTION WIDTH 18.6 % (11.6-14.6)
[2020-12-06 16:00] VITALS: BP_SYST 133; BP_DIAS 60; BP_DIAS 72
[2020-12-06] MEDS: MONTELUKAST SODIUM 10MG TABLET PO SCH (18:31)
[2020-12-06 19:21] LABS: PLATELET ESTIMATE NORMAL
[2020-12-06 20:00] VITALS: BP 133/50
[2020-12-06] MEDS: ATORVASTATIN CALCIUM 40MG TABLET PO SCH (21:03)
[2020-12-07] VITALS (7 sets, daily range): BP systolic 130–147; BP diastolic 59–80
[2020-12-07] MEDS: SODIUM CHLORIDE 0.9% 1,000 ML IV SCH ×3 (00:09→21:04)
[2020-12-07] MEDS: INSULIN LISPRO 100 UNITS/ML SUBCUT SCH ×4 (06:13→21:06)
[2020-12-07] MEDS: BLOOD SUGAR DIAGNOSTIC STRIP TEST SCH ×4 (06:13→21:03)
[2020-12-07 07:52] LABS: HEMOGLOBIN. 9.1 g/dL (14.0-18.0); MEAN CORPUSCULAR HEMOGLOBIN 27.5 pg (28.0-32.0); MEAN CORPUSCULAR VOLUME 84.2 fL (80.0-94.0); MEAN PLATELET VOLUME 9.9 fl (7.4-10.4); PLATELET 182 x1000/uL (130-400); RED BLOOD CELL COUNT 3.33 mill/uL (4.7-6.1); RED CELL DISTRIBUTION WIDTH 19.5 % (11.6-14.6)
[2020-12-07] MEDS: DOCUSATE SODIUM 100MG CAPSULE PO SCH ×2 (08:52→17:59)
[2020-12-07] MEDS: CARVEDILOL 12.5MG TABLET PO SCH ×2 (08:52→21:05)
[2020-12-07] MEDS: FAMOTIDINE 20MG TABLET PO SCH (08:52)
[2020-12-07] MEDS: GUAIFENESIN 600MG ER TABLET PO SCH ×2 (08:52→21:04)
[2020-12-07] MEDS: APIXABAN 5 MG TABLET PO SCH ×2 (08:52→17:59)
[2020-12-07] MEDS: ALLOPURINOL 300 MG TABLET PO SCH (08:52)
[2020-12-07 11:09] LABS: PLATELET ESTIMATE NORMAL
[2020-12-07] MEDS: MONTELUKAST SODIUM 10MG TABLET PO SCH (17:59)
[2020-12-07] MEDS: ATORVASTATIN CALCIUM 40MG TABLET PO SCH (21:04)
[2020-12-07] MEDS: ACETAMINOPHEN 325MG TABLET PO PRN (21:05)
[2020-12-08 00:59] VITALS: BP 140/62
[2020-12-08 04:00] VITALS: BP 142/74
[2020-12-08 05:19] VITALS: BP 142/74
[2020-12-08] MEDS: BLOOD SUGAR DIAGNOSTIC STRIP TEST SCH ×2 (05:54→12:04)
[2020-12-08 07:50] LABS: BASOPHILS % 0.1 % (0.0-2.0); HEMATOCRIT. 28.4 % (42.0-52.0); HEMOGLOBIN. 9.3 g/dL (14.0-18.0); LYMPHOCYTES % 9.3 % (20.0-50.0); MEAN CORPUSCULAR HEMOGLOBIN 27.9 pg (28.0-32.0); MEAN CORPUSCULAR VOLUME 85.3 fL (80.0-94.0); MEAN PLATELET VOLUME 9.2 fl (7.4-10.4); MONOCYTES % 9.2 % (2.0-8.0); NEUTROPHILS % 79.4 % (40.0-76.0); PLATELET 190 x1000/uL (130-400); RED BLOOD CELL COUNT 3.33 mill/uL (4.7-6.1); RED CELL DISTRIBUTION WIDTH 19.5 % (11.6-14.6)
[2020-12-08 08:00] VITALS: BP 143/69
[2020-12-08] MEDS: GUAIFENESIN 600MG ER TABLET PO SCH (09:18)
[2020-12-08] MEDS: APIXABAN 5 MG TABLET PO SCH (09:18)
[2020-12-08] MEDS: DOCUSATE SODIUM 100MG CAPSULE PO SCH (09:18)
[2020-12-08] MEDS: FAMOTIDINE 20MG TABLET PO SCH (09:19)
[2020-12-08] MEDS: CARVEDILOL 12.5MG TABLET PO SCH (09:20)
[2020-12-08] MEDS: ALLOPURINOL 300 MG TABLET PO SCH (09:22)
[2020-12-08 12:00] VITALS: BP 120/76
[2020-12-08] MEDS: INSULIN LISPRO 100 UNITS/ML SUBCUT SCH (12:04)
[2020-12-08 15:39] VITALS: BP 120/76
[2020-12-08] MEDS: ACETAMINOPHEN 325MG TABLET PO PRN (16:00)
== END 2020-12-08 16:45 | disposition home or self-care (01) | DRG 682 ==
LOC: ER 02:49 → CANBEDREQ 05:58 → 5WST 06:09 → ENRESERV 09:15
PROVIDERS: ADMIT Internal Medicine; ATTEND Internal Medicine
PROC: 5A09457 Assistance with Respiratory Ventilation, 24-96 Consecutive Hours, Continuous Positive Airway Pressure (ICD-10-PCS; 2020-12-03)
PROC: 5A09357 Assistance with Respiratory Ventilation, Less than 24 Consecutive Hours, Continuous Positive Airway Pressure (ICD-10-PCS; 2020-12-06)
PROC: 5A09357 Assistance with Respiratory Ventilation, Less than 24 Consecutive Hours, Continuous Positive Airway Pressure (ICD-10-PCS; principal; 2020-12-08)
DX: N17.9 Acute kidney failure, unspecified (principal); E43 Unspecified severe protein-calorie malnutrition; I13.0 Hypertensive heart and chronic kidney disease with heart failure and stage 1 through stage 4 chronic kidney disease, or unspecified chronic kidney disease; I48.92 Unspecified atrial flutter; Z68.42 Body mass index [BMI] 45.0-49.9, adult; I42.9 Cardiomyopathy, unspecified; Z95.810 Presence of automatic (implantable) cardiac defibrillator; K59.00 Constipation, unspecified; N18.9 Chronic kidney disease, unspecified; E11.22 Type 2 diabetes mellitus with diabetic chronic kidney disease; D64.9 Anemia, unspecified; E78.5 Hyperlipidemia, unspecified; G47.33 Obstructive sleep apnea (adult) (pediatric); E87.8 Other disorders of electrolyte and fluid balance, not elsewhere classified; F17.210 Nicotine dependence, cigarettes, uncomplicated; I50.9 Heart failure, unspecified; J44.9 Chronic obstructive pulmonary disease, unspecified; K76.0 Fatty (change of) liver, not elsewhere classified; M10.9 Gout, unspecified; N28.1 Cyst of kidney, acquired; I48.91 Unspecified atrial fibrillation; E66.01 Morbid (severe) obesity due to excess calories; K59.09 Other constipation; Z71.3 Dietary counseling and surveillance
CPT/HCPCS: 36415; 36600; 71045; 74176; 76705; 78227; 80048; 80053; 80076; 81003; 82248; 82375; 82550; 82805; 82962; 83605; 83735; 84100; 85025; 93005; 94640; 94660; 99285; A9537; J1815; J2270; J2405; J7030

== ENCOUNTER 2021-02-04 14:04 | Inpatient (IN) | payer MEDICARE, MEDICAID ==
[~2021-02-04] VITALS: Ht 175.3 cm; Wt 152.1 kg
[~2021-02-04 14:04] MED LIST changes: +AZIT250T12 PO; +CALC0.253 PO; +FURO40TA5 PO; +GUAI600T44 PO; +MELA5TAB21 MT; +METO2.5T2 PO; +OMEP20TA2 PO; +PRED10TA23 PO
[2021-02-04 15:56] LABS: CHLORIDE 104 mEq/L (98-107)
[2021-02-04 15:57] LABS: BASOPHILS % 0.6 % (0.0-2.0); EOSINOPHILS % 2.4 % (0.0-5.0); HEMATOCRIT. 36.3 % (42.0-52.0); HEMOGLOBIN. 11.5 g/dL (14.0-18.0); LYMPHOCYTES % 12.5 % (20.0-50.0); MEAN CORPUSCULAR HEMOGLOBIN 27.9 pg (28.0-32.0); MEAN CORPUSCULAR VOLUME 88.4 fL (80.0-94.0); MEAN PLATELET VOLUME 8.9 fl (7.4-10.4); NEUTROPHILS % 77.5 % (40.0-76.0); PLATELET 228 x1000/uL (130-400); RED CELL DISTRIBUTION WIDTH 18.4 % (11.6-14.6)
[2021-02-04] MEDS ORDERED: NITROGLYCERIN 0.4MG TABLET SL SL PRN (19:45)
[2021-02-04] MEDS ORDERED: ACETAMINOPHEN 325MG TABLET PO PRN ×2 (19:45)
[2021-02-04] MEDS ORDERED: IPRATROPIUM/ALBUTEROL 0.5-3(2.5)MG/3ML NEB NEB PRN (19:45)
[2021-02-04] MEDS ORDERED: DOCUSATE SODIUM 100MG CAPSULE PO PRN (19:45)
[2021-02-04] MEDS ORDERED: GUAIFENESIN 200MG/10ML SUGAR FREE UDC PO PRN (19:45)
[2021-02-04] MEDS ORDERED: CLONIDINE 0.1MG TABLET PO PRN (19:45)
[2021-02-04] MEDS ORDERED: ZOLPIDEM TARTRATE 5MG TABLET PO PRN (19:45)
[2021-02-04] MEDS ORDERED: MAGNESIUM/ALUMINUM HYDROXIDE/SIMETHICONE 30ML UDC PO PRN (19:45)
[2021-02-04] MEDS ORDERED: ONDANSETRON HCL 4MG/2ML INJ IV PRN (19:45)
[2021-02-04 20:28] LABS: FOLIC ACID (FOLATE) SERUM 13.1 ng/mL (>5.38)
[2021-02-04] MEDS ORDERED: METOLAZONE 10MG TABLET PO NR (21:00)
[2021-02-04 22:04] LABS: *AMPHETAMINES SCREEN URINE NEGATIVE (NEGATIVE); *BARBITURATES SCREEN URINE NEGATIVE (NEGATIVE); *BENZODIAZEPINES SCREEN URINE NEGATIVE (NEGATIVE); *COCAINE SCREEN URINE NEGATIVE (NEGATIVE); CANNABINOID URINE SCREEN NEGATIVE (NEGATIVE); METHADONE URINE SCREEN NEGATIVE (NEGATIVE); OPIATES URINE SCREEN NEGATIVE (NEGATIVE); PHENCYCLIDINE URINE SCREEN NEGATIVE (NEGATIVE)
[2021-02-04] MEDS: ENOXAPARIN 40MG/0.4ML SYR SUBCUT SCH (22:32)
[2021-02-04] MEDS: FAMOTIDINE 20MG TABLET PO SCH (22:33)
[2021-02-04 23:16] LABS: CREATINE KINASE 151 IU/L (39-308)
[2021-02-04 23:18] LABS: CREATINE KINASE MB FRACTION 1.5 ng/mL (0.5-3.6)
[2021-02-04] MEDS: SPIRONOLACTONE 25MG TABLET PO SCH (23:44)
[2021-02-05] VITALS (11 sets, daily range): BP systolic 126–159; BP diastolic 71–95
[2021-02-05] MEDS: CARVEDILOL 3.125 MG TABLET PO SCH ×2 (05:55→17:42)
[2021-02-05] MEDS: ASPIRIN 325MG EC TABLET PO SCH (08:28)
[2021-02-05] MEDS: SPIRONOLACTONE 25MG TABLET PO SCH ×2 (08:30→20:40)
[2021-02-05] MEDS: ENOXAPARIN 40MG/0.4ML SYR SUBCUT SCH (08:31)
[2021-02-05 10:24] LABS: CHLORIDE 106 mEq/L (98-107)
[2021-02-05] MEDS ORDERED: REGADENOSON 0.4 MG/5 ML IV NR (10:30)
[2021-02-05 10:32] LABS: BASOPHILS % 0.6 % (0.0-2.0); CREATINE KINASE 124 IU/L (39-308); EOSINOPHILS % 2.5 % (0.0-5.0); HEMATOCRIT. 38.1 % (42.0-52.0); HEMOGLOBIN. 11.9 g/dL (14.0-18.0); LYMPHOCYTES % 13.4 % (20.0-50.0); MEAN CORPUSCULAR HEMOGLOBIN 28.2 pg (28.0-32.0); MEAN CORPUSCULAR VOLUME 90.2 fL (80.0-94.0); MONOCYTES % 6.3 % (2.0-8.0); NEUTROPHILS % 77.2 % (40.0-76.0); PLATELET 232 x1000/uL (130-400); RED BLOOD CELL COUNT 4.23 mill/uL (4.7-6.1); RED CELL DISTRIBUTION WIDTH 18.7 % (11.6-14.6)
[2021-02-05 10:35] LABS: CREATINE KINASE MB FRACTION 1.5 ng/mL (0.5-3.6)
[2021-02-05] MEDS ORDERED: REGADENOSON 0.4 MG/5 ML IV ONE (11:50)
[2021-02-05] MEDS: APIXABAN 5 MG TABLET PO SCH (17:42)
[2021-02-05] MEDS: FAMOTIDINE 20MG TABLET PO SCH (20:39)
[2021-02-05] MEDS: ATORVASTATIN CALCIUM 40MG TABLET PO SCH (20:40)
[2021-02-06] VITALS (12 sets, daily range): BP systolic 131–160; BP diastolic 65–89
[2021-02-06] MEDS: CARVEDILOL 3.125 MG TABLET PO SCH ×2 (05:25→18:05)
[2021-02-06] MEDS: APIXABAN 5 MG TABLET PO SCH ×2 (05:25→18:04)
[2021-02-06 07:19] LABS: BASOPHILS % 0.4 % (0.0-2.0); EOSINOPHILS % 3.4 % (0.0-5.0); HEMATOCRIT. 37.3 % (42.0-52.0); HEMOGLOBIN. 12.1 g/dL (14.0-18.0); MEAN CORPUSCULAR HEMOGLOBIN 28.5 pg (28.0-32.0); MEAN CORPUSCULAR VOLUME 87.8 fL (80.0-94.0); MEAN PLATELET VOLUME 9.2 fl (7.4-10.4); MONOCYTES % 7.2 % (2.0-8.0); PLATELET 239 x1000/uL (130-400); RED BLOOD CELL COUNT 4.25 mill/uL (4.7-6.1)
[2021-02-06 07:26] LABS: CHLORIDE 105 mEq/L (98-107)
[2021-02-06 07:44] LABS: PHOSPHORUS 3.7 mg/dL (2.5-4.9)
[2021-02-06] MEDS: ASPIRIN 325MG EC TABLET PO SCH (08:49)
[2021-02-06] MEDS: SPIRONOLACTONE 25MG TABLET PO SCH ×2 (08:49→20:32)
[2021-02-06] MEDS: METOLAZONE 2.5MG TABLET PO SCH (08:51)
[2021-02-06] MEDS: ATORVASTATIN CALCIUM 40MG TABLET PO SCH (20:32)
[2021-02-06] MEDS: FAMOTIDINE 20MG TABLET PO SCH (20:32)
[2021-02-07] VITALS (8 sets, daily range): BP systolic 133–157; BP diastolic 58–88
[2021-02-07] MEDS: CARVEDILOL 3.125 MG TABLET PO SCH (05:17)
[2021-02-07] MEDS: APIXABAN 5 MG TABLET PO SCH (05:17)
[2021-02-07] MEDS: ASPIRIN 325MG EC TABLET PO SCH (08:47)
[2021-02-07] MEDS: METOLAZONE 2.5MG TABLET PO SCH (08:47)
[2021-02-07] MEDS: SPIRONOLACTONE 25MG TABLET PO SCH (08:47)
[2021-02-07] MEDS ORDERED: APIXABAN 2.5 MG TABLET PO SCH (18:00)
== END 2021-02-07 14:40 | disposition home health service (06) | DRG 205 ==
LOC: ER 14:04 → MICUSO 19:04 → 3WST 23:02
PROVIDERS: ADMIT Internal Medicine; ATTEND Internal Medicine
DX: M94.0 Chondrocostal junction syndrome [Tietze] (principal); N17.0 Acute kidney failure with tubular necrosis; I50.33 Acute on chronic diastolic (congestive) heart failure; I13.0 Hypertensive heart and chronic kidney disease with heart failure and stage 1 through stage 4 chronic kidney disease, or unspecified chronic kidney disease; Z68.42 Body mass index [BMI] 45.0-49.9, adult; I42.0 Dilated cardiomyopathy; I50.9 Heart failure, unspecified; E11.22 Type 2 diabetes mellitus with diabetic chronic kidney disease; E66.01 Morbid (severe) obesity due to excess calories; E78.5 Hyperlipidemia, unspecified; R00.1 Bradycardia, unspecified; M10.9 Gout, unspecified; I48.91 Unspecified atrial fibrillation; J44.9 Chronic obstructive pulmonary disease, unspecified; N18.9 Chronic kidney disease, unspecified; Z95.0 Presence of cardiac pacemaker; Z82.49 Family history of ischemic heart disease and other diseases of the circulatory system; Z79.899 Other long term (current) drug therapy; Z79.01 Long term (current) use of anticoagulants
CPT/HCPCS: 36415; 71045; 78452; 80048; 80053; 80061; 80305; 82550; 82553; 82607; 82728; 82746; 83036; 83540; 83550; 83735; 83880; 84100; 84484; 85025; 93005; 93017; 93970; 99285; A9500; J1650; J2785

== ENCOUNTER 2022-01-24 05:03 | Inpatient (IN) | payer MEDICARE, MEDICAID ==
[~2022-01-24] VITALS: Ht 175.3 cm; Wt 136.1 kg
[~2022-01-24 05:03] MED LIST changes: -AZIT250T12 PO; -FLUT1AER IH; +FURO-151 PO; -FURO40TA5 PO; -LOSA50TA41 MT; -METO2.5T2 PO; +METO5TAB7 PO; +MONT-39 PO; -MONT10TA32 PO; -OMEP20TA2 PO; +P20 PO; +PRED10TA PO; -PRED10TA23 PO
[2022-01-24 06:29] LABS: MEAN CORPUSCULAR VOLUME 86.7 fL (80.0-94.0); MEAN PLATELET VOLUME 8.9 fl (7.4-10.4); PLATELET 188 x1000/uL (130-400); RED BLOOD CELL COUNT 3.92 mill/uL (4.7-6.1)
[2022-01-24 06:34] LABS: CHLORIDE 95 mEq/L (98-107)
[2022-01-24 06:57] LABS: PLATELET ESTIMATE NORMAL
[2022-01-24 09:09] LABS: BG CARBOXYHEMOGLOBIN 0.1 % (0.5-1.5); BG FRACTION INSPIRED OXYGEN 28; BG HCO3 ACT 39.4 mmol/L (22.0-26.0); BG METHEMOGLOBIN 0.3 % (0.0-1.5); BG OXYHEMOGLOBIN 95.6 % (94.0-97.0); BG PCO2 66.2 mmHg (35.0-45.0); BG PH 7.392 (7.350-7.450); BG PO2 86.2 mmHg (75.0-100.0); BG SAMPLE SITE RIGHT RADIAL; BG TOTAL HEMOGLOBIN 11.6 g/dL (12.0-18.0); BG VENT MODE NASAL CANNULA
[2022-01-24] MEDS ORDERED: METHYLPREDNISOLONE SOD SUCC 125 MG/2 ML VIAL IV ONE (09:30)
[2022-01-24] MEDS ORDERED: ALBUTEROL (0.083%) 2.5MG/3ML NEB HHN ONE (11:00)
[2022-01-24] MEDS ORDERED: MAGNESIUM/ALUMINUM HYDROXIDE/SIMETHICONE 30ML UDC PO PRN (16:00)
[2022-01-24] MEDS ORDERED: ONDANSETRON HCL 4MG/2ML INJ IV PRN (16:00)
[2022-01-24] MEDS ORDERED: GUAIFENESIN 200MG/10ML SUGAR FREE UDC PO PRN (16:00)
[2022-01-24] MEDS ORDERED: HYDROCODONE/ACETAMINOPHEN 5/325MG TABLET PO PRN (16:00)
[2022-01-24] MEDS ORDERED: MORPHINE SULFATE 2 MG/ML CPJ (NOT FOR IM USE) IV PRN (16:00)
[2022-01-24] MEDS ORDERED: HYDRALAZINE 20MG/ML VIAL IV PRN (16:00)
[2022-01-24] MEDS ORDERED: DIPHENHYDRAMINE 50MG/ML VIAL IV PRN (16:00)
[2022-01-24] MEDS ORDERED: CLONIDINE 0.1MG TABLET PO PRN (16:00)
[2022-01-24] MEDS ORDERED: ACETAMINOPHEN 325MG TABLET PO PRN (16:00)
[2022-01-24] MEDS ORDERED: DOCUSATE SODIUM 100MG CAPSULE PO PRN (16:00)
[2022-01-24] MEDS ORDERED: NALOXONE HCL 0.4MG/ML VIAL IV PRN (16:15)
[2022-01-24] MEDS ORDERED: ENOXAPARIN 40MG/0.4ML SYR SUBCUT SCH (17:00)
[2022-01-24] MEDS: IPRATROPIUM/ALBUTEROL 0.5-3(2.5)MG/3ML NEB HHN PRN (18:41)
[2022-01-24] MEDS: SODIUM CHLORIDE 0.9% INJ 3ML FLUSH IVF SCH ×2 (21:09→21:10)
[2022-01-24 23:18] VITALS: BP 146/85
[2022-01-25] VITALS: BP 138/79
[2022-01-25] MEDS: IPRATROPIUM/ALBUTEROL 0.5-3(2.5)MG/3ML NEB HHN PRN ×2 (02:13→12:15)
[2022-01-25 04:00] VITALS: BP 144/78
[2022-01-25 07:32] LABS: HEMATOCRIT. 33.1 % (42.0-52.0); HEMOGLOBIN. 10.3 g/dL (14.0-18.0); MEAN CORPUSCULAR HEMOGLOBIN 27.5 pg (28.0-32.0); MEAN CORPUSCULAR VOLUME 88.3 fL (80.0-94.0); MEAN PLATELET VOLUME 8.8 fl (7.4-10.4); PLATELET 189 x1000/uL (130-400); RED BLOOD CELL COUNT 3.74 mill/uL (4.7-6.1); RED CELL DISTRIBUTION WIDTH 17.9 % (11.6-14.6)
[2022-01-25 07:42] LABS: CHLORIDE 95 mEq/L (98-107)
[2022-01-25 08:00] VITALS: BP 137/67
[2022-01-25] MEDS: APIXABAN 5 MG TABLET PO SCH ×2 (10:54→17:02)
[2022-01-25] MEDS: FUROSEMIDE 40MG/4ML VIAL IVP SCH (10:54)
[2022-01-25] MEDS: CARVEDILOL 6.25 MG TABLET PO SCH ×2 (10:55→21:00)
[2022-01-25] MEDS: LOSARTAN POTASSIUM 50 MG TABLET PO SCH (10:55)
[2022-01-25 12:00] VITALS: BP 127/58
[2022-01-25 12:49] LABS: PLATELET ESTIMATE NORMAL
[2022-01-25 12:54] LABS: CLARITY URINE CLEAR (CLEAR); COLOR URINE YELLOW (YELLOW); KETONES URINE NEGATIVE (NEGATIVE); LEUKOCYTE ESTERASE URINE NEGATIVE (NEGATIVE); NITRITE URINE NEGATIVE (NEGATIVE); OCCULT BLOOD URINE NEGATIVE (NEGATIVE); PH URINE 5.5 (4.5-8.0); PROTEIN URINE NEGATIVE (NEGATIVE); SPECIFIC GRAVITY URINE 1.013 (1.005-1.030); UROBILINOGEN URINE 0.2 E.U./dL (0.2-1.0)
[2022-01-25] MEDS: SODIUM CHLORIDE 0.9% INJ 3ML FLUSH IVF SCH ×2 (13:17→21:02)
[2022-01-25 15:35] VITALS: BP 107/79
[2022-01-25] MEDS: METHYLPREDNISOLONE SOD SUCC 40 MG/ML VIAL IV SCH (17:01)
[2022-01-25 20:00] VITALS: BP 129/66
[2022-01-25] MEDS: ALBUTEROL (0.083%) 2.5MG/3ML NEB HHN SCH (20:36)
[2022-01-25] MEDS: ATORVASTATIN CALCIUM 20MG TABLET PO SCH (21:02)
[2022-01-25] MEDS: GUAIFENESIN 600MG ER TABLET PO SCH (21:02)
[2022-01-26] VITALS: BP 122/64
[2022-01-26] MEDS: ALBUTEROL (0.083%) 2.5MG/3ML NEB HHN SCH ×6 (00:10→20:52)
[2022-01-26] MEDS: IPRATROPIUM/ALBUTEROL 0.5-3(2.5)MG/3ML NEB HHN PRN (00:23)
[2022-01-26] MEDS: METHYLPREDNISOLONE SOD SUCC 40 MG/ML VIAL IV SCH ×3 (01:06→17:18)
[2022-01-26] MEDS: SODIUM CHLORIDE 0.9% INJ 3ML FLUSH IVF SCH ×3 (01:06→22:22)
[2022-01-26 04:00] VITALS: BP 120/72
[2022-01-26 06:25] LABS: HEMATOCRIT. 35.7 % (42.0-52.0); HEMOGLOBIN. 11.1 g/dL (14.0-18.0); MEAN CORPUSCULAR HEMOGLOBIN 27.4 pg (28.0-32.0); MEAN CORPUSCULAR VOLUME 88.3 fL (80.0-94.0); MEAN PLATELET VOLUME 9.3 fl (7.4-10.4); PLATELET 182 x1000/uL (130-400); RED BLOOD CELL COUNT 4.05 mill/uL (4.7-6.1); RED CELL DISTRIBUTION WIDTH 17.8 % (11.6-14.6)
[2022-01-26 07:41] VITALS: BP 100/59
[2022-01-26] MEDS: CARVEDILOL 6.25 MG TABLET PO SCH ×2 (08:05→22:22)
[2022-01-26] MEDS: GUAIFENESIN 600MG ER TABLET PO SCH ×2 (08:05→22:22)
[2022-01-26] MEDS: METOLAZONE 5MG TABLET PO SCH (08:06)
[2022-01-26] MEDS: FUROSEMIDE 40MG/4ML VIAL IVP SCH (08:06)
[2022-01-26] MEDS: APIXABAN 5 MG TABLET PO SCH ×2 (08:06→17:19)
[2022-01-26] MEDS: LOSARTAN POTASSIUM 50 MG TABLET PO SCH (08:06)
[2022-01-26 09:25] LABS: BG BASE EXCESS 11.2 mmol/L (-2.0-2.0); BG CARBOXYHEMOGLOBIN 0.1 % (0.5-1.5); BG DEOXYHEMOGLOBIN 2.3 % (0.0-5.0); BG FRACTION INSPIRED OXYGEN 36; BG HCO3 ACT 38.5 mmol/L (22.0-26.0); BG METHEMOGLOBIN 0.2 % (0.0-1.5); BG OXYGEN SATURATION 97.7 % (92.0-98.5); BG OXYHEMOGLOBIN 97.4 % (94.0-97.0); BG PCO2 66.2 mmHg (35.0-45.0); BG PH 7.383 (7.350-7.450); BG PO2 103.7 mmHg (75.0-100.0); BG SAMPLE SITE RIGHT RADIAL; BG TOTAL HEMOGLOBIN 11.6 g/dL (12.0-18.0); BG VENT MODE NASAL CANNULA
[2022-01-26 12:00] VITALS: BP 107/64
[2022-01-26 16:00] VITALS: BP 123/54
[2022-01-26 16:36] LABS: PLATELET ESTIMATE NORMAL
[2022-01-26 20:00] VITALS: BP_SYST 122; BP_DIAS 54; BP_DIAS 64
[2022-01-26] MEDS: ATORVASTATIN CALCIUM 20MG TABLET PO SCH (22:22)
[2022-01-27] MEDS: ALBUTEROL (0.083%) 2.5MG/3ML NEB HHN SCH ×6 (00:21→21:07)
[2022-01-27] MEDS: METHYLPREDNISOLONE SOD SUCC 40 MG/ML VIAL IV SCH ×3 (02:26→17:40)
[2022-01-27] MEDS: IPRATROPIUM/ALBUTEROL 0.5-3(2.5)MG/3ML NEB HHN PRN ×3 (04:22→20:58)
[2022-01-27] MEDS: SODIUM CHLORIDE 0.9% INJ 3ML FLUSH IVF SCH ×3 (05:38→22:07)
[2022-01-27 06:26] LABS: HEMATOCRIT. 34.4 % (42.0-52.0); MEAN CORPUSCULAR HEMOGLOBIN 27.6 pg (28.0-32.0); MEAN CORPUSCULAR VOLUME 86.5 fL (80.0-94.0); MEAN PLATELET VOLUME 9.2 fl (7.4-10.4); PLATELET 180 x1000/uL (130-400); RED BLOOD CELL COUNT 3.97 mill/uL (4.7-6.1); RED CELL DISTRIBUTION WIDTH 17.9 % (11.6-14.6)
[2022-01-27 08:00] VITALS: BP 108/57
[2022-01-27] MEDS: FUROSEMIDE 40MG/4ML VIAL IVP SCH ×2 (08:51→17:40)
[2022-01-27] MEDS: LOSARTAN POTASSIUM 50 MG TABLET PO SCH (08:52)
[2022-01-27] MEDS: CARVEDILOL 6.25 MG TABLET PO SCH ×2 (08:52→22:08)
[2022-01-27] MEDS: APIXABAN 5 MG TABLET PO SCH ×2 (08:53→17:41)
[2022-01-27] MEDS: GUAIFENESIN 600MG ER TABLET PO SCH ×2 (08:53→22:07)
[2022-01-27] MEDS: METOLAZONE 5MG TABLET PO SCH (09:11)
[2022-01-27 12:00] VITALS: BP 130/62
[2022-01-27] MEDS: SILDENAFIL CITRATE 20MG TABLET PO SCH ×2 (14:43→22:07)
[2022-01-27 16:00] VITALS: BP 129/59
[2022-01-27 19:00] LABS: PLATELET ESTIMATE NORMAL
[2022-01-27 20:00] VITALS: BP 128/55
[2022-01-27] MEDS: ATORVASTATIN CALCIUM 20MG TABLET PO SCH (22:08)
[2022-01-28] MEDS: ALBUTEROL (0.083%) 2.5MG/3ML NEB HHN SCH ×6 (00:09→20:45)
[2022-01-28] MEDS: METHYLPREDNISOLONE SOD SUCC 40 MG/ML VIAL IV SCH ×2 (01:26→10:00)
[2022-01-28 04:00] VITALS: BP 137/60
[2022-01-28] MEDS: SILDENAFIL CITRATE 20MG TABLET PO SCH ×3 (06:01→21:07)
[2022-01-28] MEDS: FUROSEMIDE 40MG/4ML VIAL IVP SCH (06:28)
[2022-01-28] MEDS: SODIUM CHLORIDE 0.9% INJ 3ML FLUSH IVF SCH ×3 (06:30→21:07)
[2022-01-28 06:47] LABS: HEMATOCRIT. 34.8 % (42.0-52.0); HEMOGLOBIN. 10.9 g/dL (14.0-18.0); MEAN CORPUSCULAR HEMOGLOBIN 27.4 pg (28.0-32.0); MEAN CORPUSCULAR VOLUME 87.2 fL (80.0-94.0); MEAN PLATELET VOLUME 9.5 fl (7.4-10.4); PLATELET 176 x1000/uL (130-400); RED CELL DISTRIBUTION WIDTH 17.8 % (11.6-14.6)
[2022-01-28] MEDS: APIXABAN 5 MG TABLET PO SCH ×2 (10:56→18:46)
[2022-01-28] MEDS: GUAIFENESIN 600MG ER TABLET PO SCH ×2 (10:56→21:06)
[2022-01-28] MEDS: METOLAZONE 5MG TABLET PO SCH (10:56)
[2022-01-28] MEDS: CARVEDILOL 6.25 MG TABLET PO SCH ×2 (10:57→21:06)
[2022-01-28] MEDS ORDERED: INSULIN LISPRO 100 UNITS/ML SUBCUT SCH (13:15)
[2022-01-28 15:00] VITALS: BP 136/64
[2022-01-28 20:00] VITALS: BP 148/85
[2022-01-28 20:07] LABS: PLATELET ESTIMATE NORMAL
[2022-01-28] MEDS: BUDESONIDE 0.5MG/2ML NEB HHN SCH (20:45)
[2022-01-28] MEDS: ATORVASTATIN CALCIUM 20MG TABLET PO SCH (21:06)
[2022-01-29] VITALS: BP 131/60
[2022-01-29] MEDS: ALBUTEROL (0.083%) 2.5MG/3ML NEB HHN SCH ×7 (00:12→23:47)
[2022-01-29 08:00] VITALS: BP 167/93
[2022-01-29] MEDS: BUDESONIDE 0.5MG/2ML NEB HHN SCH ×2 (08:34→20:34)
[2022-01-29 12:00] VITALS: BP 123/56
[2022-01-29] MEDS: APIXABAN 5 MG TABLET PO SCH ×2 (13:06→17:17)
[2022-01-29] MEDS: CARVEDILOL 6.25 MG TABLET PO SCH ×2 (13:09→21:05)
[2022-01-29] MEDS: GUAIFENESIN 600MG ER TABLET PO SCH ×2 (13:09→21:05)
[2022-01-29] MEDS: SILDENAFIL CITRATE 20MG TABLET PO SCH ×2 (13:11→21:06)
[2022-01-29] MEDS: SODIUM CHLORIDE 0.9% INJ 3ML FLUSH IVF SCH ×2 (13:11→21:07)
[2022-01-29 16:00] VITALS: BP_SYST 114; BP_SYST 123; BP_DIAS 56; BP_DIAS 60
[2022-01-29 20:00] VITALS: BP 141/61
[2022-01-29] MEDS: IPRATROPIUM/ALBUTEROL 0.5-3(2.5)MG/3ML NEB HHN PRN (20:35)
[2022-01-29] MEDS: ATORVASTATIN CALCIUM 20MG TABLET PO SCH (21:05)
[2022-01-30] VITALS: BP 139/89
[2022-01-30] MEDS: ALBUTEROL (0.083%) 2.5MG/3ML NEB HHN SCH ×2 (03:56→09:24)
[2022-01-30 04:00] VITALS: BP 122/63
[2022-01-30] MEDS: SODIUM CHLORIDE 0.9% INJ 3ML FLUSH IVF SCH (05:03)
[2022-01-30] MEDS: SILDENAFIL CITRATE 20MG TABLET PO SCH (05:03)
[2022-01-30 07:39] VITALS: BP 104/68
[2022-01-30] MEDS: APIXABAN 5 MG TABLET PO SCH (08:19)
[2022-01-30] MEDS: GUAIFENESIN 600MG ER TABLET PO SCH (08:19)
[2022-01-30] MEDS: CARVEDILOL 6.25 MG TABLET PO SCH (08:19)
[2022-01-30] MEDS: BUDESONIDE 0.5MG/2ML NEB HHN SCH (09:24)
== END 2022-01-30 12:00 | disposition home health service (06) | DRG 291 ==
LOC: ER 05:10 → 8WST 10:50 → ENRESERV 20:16
PROVIDERS: ADMIT Internal Medicine Nephrology; ATTEND Internal Medicine Nephrology
PROC: 5A09357 Assistance with Respiratory Ventilation, Less than 24 Consecutive Hours, Continuous Positive Airway Pressure (ICD-10-PCS; principal; 2022-01-26)
PROC: 5A09357 Assistance with Respiratory Ventilation, Less than 24 Consecutive Hours, Continuous Positive Airway Pressure (ICD-10-PCS; 2022-01-27)
PROC: 5A09357 Assistance with Respiratory Ventilation, Less than 24 Consecutive Hours, Continuous Positive Airway Pressure (ICD-10-PCS; 2022-01-28)
DX: I13.0 Hypertensive heart and chronic kidney disease with heart failure and stage 1 through stage 4 chronic kidney disease, or unspecified chronic kidney disease (principal); I50.43 Acute on chronic combined systolic (congestive) and diastolic (congestive) heart failure; J96.22 Acute and chronic respiratory failure with hypercapnia; J96.21 Acute and chronic respiratory failure with hypoxia; J44.1 Chronic obstructive pulmonary disease with (acute) exacerbation; N17.9 Acute kidney failure, unspecified; N18.4 Chronic kidney disease, stage 4 (severe); E44.1 Mild protein-calorie malnutrition; E66.2 Morbid (severe) obesity with alveolar hypoventilation; Z68.41 Body mass index [BMI] 40.0-44.9, adult; E87.2 Acidosis; I48.20 Chronic atrial fibrillation, unspecified; I42.0 Dilated cardiomyopathy; Z99.81 Dependence on supplemental oxygen; E78.5 Hyperlipidemia, unspecified; E86.9 Volume depletion, unspecified; K21.9 Gastro-esophageal reflux disease without esophagitis; I27.20 Pulmonary hypertension, unspecified; E03.9 Hypothyroidism, unspecified; Z20.822 Contact with and (suspected) exposure to COVID-19; D63.1 Anemia in chronic kidney disease; M10.9 Gout, unspecified; T50.2X5A Adverse effect of carbonic-anhydrase inhibitors, benzothiadiazides and other diuretics, initial encounter; Z95.0 Presence of cardiac pacemaker; Z79.899 Other long term (current) drug therapy; Z79.01 Long term (current) use of anticoagulants; Z87.01 Personal history of pneumonia (recurrent); Z87.891 Personal history of nicotine dependence; Z82.49 Family history of ischemic heart disease and other diseases of the circulatory system; Y92.89 Other specified places as the place of occurrence of the external cause
CPT/HCPCS: 36415; 36600; 71045; 80048; 80053; 81003; 82375; 82805; 82962; 83735; 83880; 84484; 85025; 87426; 93005; 93970; 94640; 94660; 97161; 97165; 99291; J1650; J1815; J1940; J2920; J2930; J7626

== ENCOUNTER 2023-04-20 19:18 | Inpatient (IN) | payer MEDICARE, MEDICAID ==
[~2023-04-20] VITALS: Ht 175.3 cm; Wt 161.0 kg
[2023-04-20 19:00] VITALS: BP 121/64; PULSE 67; RESP 18; TEMP 97
[~2023-04-20 19:18] MED LIST changes: -P20 PO; -PRED10TA PO
[2023-04-20 20:00] VITALS: BP 121/98; PULSE 67; RESP 18; TEMP 97
[2023-04-20] MEDS ORDERED: ACETAMINOPHEN 325MG TABLET PO PRN (20:30)
[2023-04-20] MEDS ORDERED: CLONIDINE 0.1MG TABLET PO PRN (20:30)
[2023-04-20] MEDS ORDERED: MAGNESIUM/ALUMINUM HYDROXIDE/SIMETHICONE 30ML UDC PO PRN (20:30)
[2023-04-20] MEDS ORDERED: GUAIFENESIN 200MG/10ML SUGAR FREE UDC PO PRN (20:30)
[2023-04-20] MEDS ORDERED: NALOXONE HCL 0.4 MG/ML 1ML VIAL IV PRN (20:30)
[2023-04-20] MEDS ORDERED: DOCUSATE SODIUM 100MG CAPSULE PO PRN (20:30)
[2023-04-20] MEDS ORDERED: ONDANSETRON HCL 4MG/2ML INJ IV PRN (20:30)
[2023-04-20] MEDS ORDERED: DEXTROSE 50% WATER 50ML SYRINGE IV PRN (20:30)
[2023-04-20] MEDS: BLOOD SUGAR DIAGNOSTIC STRIP TEST SCH (21:00)
[2023-04-20] MEDS: INSULIN LISPRO 100 UNITS/ML SUBCUT SCH (21:00)
[2023-04-20] MEDS: ENOXAPARIN 150MG/ML SYR SUBCUT SCH (22:23)
[2023-04-20] MEDS: ATORVASTATIN CALCIUM 40MG TABLET PO SCH (22:23)
[2023-04-20] MEDS: CARVEDILOL 12.5MG TABLET PO SCH (22:24)
[2023-04-20] MEDS: FAMOTIDINE 20MG TABLET PO SCH (22:24)
[2023-04-20] MEDS: HYDROCODONE/ACETAMINOPHEN 5/325MG TABLET PO PRN (22:42)
[2023-04-20] MEDS: INSULIN GLARGINE 100 UNITS/ML SUBCUT SCH (22:50)
[2023-04-20 23:20] VITALS: RESP 13
[2023-04-21 04:08] VITALS: RESP 11
[2023-04-21 06:40] VITALS: RESP 10
[2023-04-21] MEDS: INSULIN LISPRO 100 UNITS/ML SUBCUT SCH ×7 (06:47→22:11)
[2023-04-21] MEDS: BLOOD SUGAR DIAGNOSTIC STRIP TEST SCH ×4 (06:47→21:46)
[2023-04-21 07:23] LABS: CHLORIDE 97 mEq/L (98-107); INDEX HEMOLYSI 1 (1-3); INDEX ICTERIC 1 (1-4); INDEX LIPEMIC 1 (1-3); POTASSIUM 3.5 mEq/L (3.5-5.1); SODIUM 138 mEq/L (136-145)
[2023-04-21 07:35] LABS: ALANINE AMINOTRANSFERASE 14 IU/L (13-61); ALBUMIN 2.9 g/dL (3.4-5.0); ASPARTATE AMINOTRANSFERASE 17 IU/L (15-37); BILIRUBIN TOTAL 0.5 mg/dL (0.1-1.0); CALCIUM 10.3 mg/dL (8.5-10.1); CARBON DIOXIDE 37 mEq/L (21-32); GLUCOSE 119 mg/dL (70-105); PREALBUMIN 17.3 mg/dL (20.0-40.0); PROTEIN TOTAL 7.3 g/dL (6.0-8.3); UREA NITROGEN BLOOD 76 mg/dL (7-21)
[2023-04-21 07:44] LABS: BASOPHILS % 0.9 % (0.0-2.0); EOSINOPHILS % 3.5 % (0.0-5.0); HEMOGLOBIN. 10.6 g/dL (14.0-18.0); MEAN CORPUSCULAR HEMOGLOBIN 27.3 pg (28.0-32.0); MEAN CORPUSCULAR HGB CONC 31.3 g/dL (31.0-37.0); MEAN CORPUSCULAR VOLUME 87.4 fL (80.0-94.0); MONOCYTES % 8.6 % (2.0-8.0); PLATELET 235 x1000/uL (130-400); RED BLOOD CELL COUNT 3.88 mill/uL (4.7-6.1); RED CELL DISTRIBUTION WIDTH 18.7 % (11.6-14.6); WHITE BLOOD COUNT 8.7 x1000/uL (4.5-11.0)
[2023-04-21 08:00] VITALS: BP 140/69; PULSE 67; RESP 20; TEMP 96.3
[2023-04-21] MEDS: FUROSEMIDE 20MG TABLET PO SCH ×2 (09:15→17:25)
[2023-04-21] MEDS: CARVEDILOL 12.5MG TABLET PO SCH ×2 (09:15→21:45)
[2023-04-21] MEDS: GABAPENTIN 300MG CAPSULE PO SCH (09:15)
[2023-04-21] MEDS: ALLOPURINOL 300 MG TABLET PO SCH (09:15)
[2023-04-21] MEDS: HYDROCODONE/ACETAMINOPHEN 5/325MG TABLET PO PRN ×2 (14:06→22:02)
[2023-04-21 20:00] VITALS: BP 127/70; PULSE 60; RESP 17; TEMP 96
[2023-04-21] MEDS: ATORVASTATIN CALCIUM 40MG TABLET PO SCH (21:46)
[2023-04-21] MEDS: ENOXAPARIN 150MG/ML SYR SUBCUT SCH (21:46)
[2023-04-21] MEDS: INSULIN GLARGINE 100 UNITS/ML SUBCUT SCH (22:10)
[2023-04-21 23:26] VITALS: RESP 12
[2023-04-21] MEDS: IPRATROPIUM/ALBUTEROL 0.5-3(2.5)MG/3ML NEB HHN PRN (23:26)
[2023-04-22 04:04] VITALS: RESP 12
[2023-04-22 06:18] LABS: BASOPHILS % 0.5 % (0.0-2.0); EOSINOPHILS % 3.8 % (0.0-5.0); HEMATOCRIT. 33.3 % (42.0-52.0); HEMOGLOBIN. 10.5 g/dL (14.0-18.0); LYMPHOCYTES % 16.5 % (20.0-50.0); MEAN CORPUSCULAR HEMOGLOBIN 27.7 pg (28.0-32.0); MEAN CORPUSCULAR HGB CONC 31.5 g/dL (31.0-37.0); MEAN CORPUSCULAR VOLUME 88.1 fL (80.0-94.0); MEAN PLATELET VOLUME 9.5 fl (7.4-10.4); MONOCYTES % 8.8 % (2.0-8.0); NEUTROPHILS % 70.4 % (40.0-76.0); PLATELET 226 x1000/uL (130-400); RED BLOOD CELL COUNT 3.78 mill/uL (4.7-6.1); RED CELL DISTRIBUTION WIDTH 18.4 % (11.6-14.6); WHITE BLOOD COUNT 8.6 x1000/uL (4.5-11.0)
[2023-04-22 06:31] LABS: POTASSIUM 3.4 mEq/L (3.5-5.1)
[2023-04-22 06:44] LABS: CALCIUM 9.6 mg/dL (8.5-10.1); CREATININE 3.2 mg/dL (0.6-1.3)
[2023-04-22] MEDS: BLOOD SUGAR DIAGNOSTIC STRIP TEST SCH ×4 (07:02→21:00)
[2023-04-22] MEDS: INSULIN LISPRO 100 UNITS/ML SUBCUT SCH ×7 (07:02→21:00)
[2023-04-22 08:00] VITALS: BP 117/78; PULSE 86; RESP 18; TEMP 98.2
[2023-04-22] MEDS: ALLOPURINOL 300 MG TABLET PO SCH (08:39)
[2023-04-22] MEDS: GABAPENTIN 300MG CAPSULE PO SCH (08:39)
[2023-04-22] MEDS: FUROSEMIDE 20MG TABLET PO SCH ×2 (08:39→17:59)
[2023-04-22] MEDS: CARVEDILOL 12.5MG TABLET PO SCH ×2 (08:39→20:59)
[2023-04-22] MEDS: HYDROCODONE/ACETAMINOPHEN 5/325MG TABLET PO PRN ×2 (09:04→20:48)
[2023-04-22] MEDS ORDERED: POTASSIUM CHLORIDE 20MEQ TABLET SR PO NR (11:00)
[2023-04-22 20:00] VITALS: BP 110/64; PULSE 60; RESP 18; TEMP 97.8
[2023-04-22] MEDS: FAMOTIDINE 20MG TABLET PO SCH (20:46)
[2023-04-22] MEDS: ATORVASTATIN CALCIUM 40MG TABLET PO SCH (20:46)
[2023-04-22] MEDS: ENOXAPARIN 150MG/ML SYR SUBCUT SCH (20:49)
[2023-04-22] MEDS: INSULIN GLARGINE 100 UNITS/ML SUBCUT SCH (21:51)
[2023-04-22 23:47] VITALS: RESP 16
[2023-04-22] MEDS: IPRATROPIUM/ALBUTEROL 0.5-3(2.5)MG/3ML NEB HHN PRN (23:47)
[2023-04-23 04:00] VITALS: BP 130/62; PULSE 65; RESP 17; TEMP 98
[2023-04-23 04:46] VITALS: RESP 11
[2023-04-23] MEDS: BLOOD SUGAR DIAGNOSTIC STRIP TEST SCH ×4 (06:20→21:00)
[2023-04-23] MEDS: HYDROCODONE/ACETAMINOPHEN 5/325MG TABLET PO PRN ×2 (06:43→22:46)
[2023-04-23] MEDS: INSULIN LISPRO 100 UNITS/ML SUBCUT SCH ×6 (06:43→21:00)
[2023-04-23 08:00] VITALS: BP 116/60; PULSE 63; RESP 18; TEMP 97.1
[2023-04-23] MEDS: CARVEDILOL 12.5MG TABLET PO SCH ×2 (09:20→22:02)
[2023-04-23] MEDS: GABAPENTIN 300MG CAPSULE PO SCH (09:20)
[2023-04-23] MEDS: FUROSEMIDE 20MG TABLET PO SCH ×2 (09:20→17:37)
[2023-04-23] MEDS: ALLOPURINOL 300 MG TABLET PO SCH (09:20)
[2023-04-23] MEDS: DICLOFENAC SODIUM 1% GEL 50GM TOP SCH ×3 (14:45→21:00)
[2023-04-23] MEDS: LIDOCAINE 5% PATCH TOP SCH (14:45)
[2023-04-23] MEDS: ATORVASTATIN CALCIUM 40MG TABLET PO SCH (22:03)
[2023-04-23] MEDS: ENOXAPARIN 150MG/ML SYR SUBCUT SCH (22:04)
[2023-04-23] MEDS: INSULIN GLARGINE 100 UNITS/ML SUBCUT SCH (22:39)
[2023-04-24 02:24] VITALS: RESP 13
[2023-04-24] MEDS: IPRATROPIUM/ALBUTEROL 0.5-3(2.5)MG/3ML NEB HHN PRN ×2 (02:24→21:49)
[2023-04-24 05:25] VITALS: RESP 12
[2023-04-24] MEDS: BLOOD SUGAR DIAGNOSTIC STRIP TEST SCH ×4 (06:32→20:30)
[2023-04-24] MEDS: INSULIN LISPRO 100 UNITS/ML SUBCUT SCH ×7 (07:42→20:35)
[2023-04-24 08:00] VITALS: BP 125/64; PULSE 60; RESP 18; TEMP 97
[2023-04-24] MEDS: FUROSEMIDE 20MG TABLET PO SCH ×2 (09:01→16:57)
[2023-04-24] MEDS: GABAPENTIN 300MG CAPSULE PO SCH (09:01)
[2023-04-24] MEDS: HYDROCODONE/ACETAMINOPHEN 5/325MG TABLET PO PRN (09:01)
[2023-04-24] MEDS: LIDOCAINE 5% PATCH TOP SCH (09:02)
[2023-04-24] MEDS: DICLOFENAC SODIUM 1% GEL 50GM TOP SCH ×4 (09:02→21:00)
[2023-04-24] MEDS: ALLOPURINOL 300 MG TABLET PO SCH (09:02)
[2023-04-24] MEDS: CARVEDILOL 12.5MG TABLET PO SCH ×2 (09:02→20:37)
[2023-04-24 20:00] VITALS: BP 111/53; PULSE 60; RESP 16; TEMP 98.8
[2023-04-24] MEDS: FAMOTIDINE 20MG TABLET PO SCH (20:28)
[2023-04-24] MEDS: ATORVASTATIN CALCIUM 40MG TABLET PO SCH (20:29)
[2023-04-24] MEDS: ENOXAPARIN 150MG/ML SYR SUBCUT SCH (20:30)
[2023-04-24] MEDS: INSULIN GLARGINE 100 UNITS/ML SUBCUT SCH (21:18)
[2023-04-24 21:49] VITALS: RESP 13
[2023-04-25 01:21] VITALS: RESP 13
[2023-04-25] MEDS: IPRATROPIUM/ALBUTEROL 0.5-3(2.5)MG/3ML NEB HHN PRN (01:21)
[2023-04-25 05:10] VITALS: RESP 12
[2023-04-25] MEDS: BLOOD SUGAR DIAGNOSTIC STRIP TEST SCH ×4 (06:30→21:00)
[2023-04-25] MEDS: INSULIN LISPRO 100 UNITS/ML SUBCUT SCH ×7 (07:16→21:00)
[2023-04-25 08:00] VITALS: BP 115/52; PULSE 59; RESP 22; TEMP 97.4
[2023-04-25] MEDS: GABAPENTIN 300MG CAPSULE PO SCH (08:34)
[2023-04-25] MEDS: LIDOCAINE 5% PATCH TOP SCH (08:35)
[2023-04-25] MEDS: ALLOPURINOL 300 MG TABLET PO SCH (08:35)
[2023-04-25] MEDS: CARVEDILOL 12.5MG TABLET PO SCH ×2 (08:35→21:00)
[2023-04-25] MEDS: FUROSEMIDE 20MG TABLET PO SCH ×2 (08:35→17:20)
[2023-04-25] MEDS: DICLOFENAC SODIUM 1% GEL 50GM TOP SCH ×4 (08:40→21:00)
[2023-04-25] MEDS: DOCUSATE SODIUM 100MG CAPSULE PO SCH (17:19)
[2023-04-25] MEDS: LACTULOSE 20G/30ML UDC PO SCH ×2 (17:20→20:00)
[2023-04-25 20:00] VITALS: BP 107/68; PULSE 63; RESP 20; TEMP 98.7
[2023-04-25] MEDS: HYDROCODONE/ACETAMINOPHEN 5/325MG TABLET PO PRN (20:57)
[2023-04-25] MEDS: ATORVASTATIN CALCIUM 40MG TABLET PO SCH (20:57)
[2023-04-25] MEDS: ENOXAPARIN 150MG/ML SYR SUBCUT SCH (20:58)
[2023-04-25] MEDS: INSULIN GLARGINE 100 UNITS/ML SUBCUT SCH (21:37)
[2023-04-26] MEDS: LACTULOSE 20G/30ML UDC PO SCH
[2023-04-26 00:21] VITALS: RESP 19
[2023-04-26] MEDS: IPRATROPIUM/ALBUTEROL 0.5-3(2.5)MG/3ML NEB HHN PRN (00:21)
[2023-04-26 04:49] VITALS: RESP 12
[2023-04-26] MEDS: BLOOD SUGAR DIAGNOSTIC STRIP TEST SCH ×4 (06:25→21:00)
[2023-04-26 08:00] VITALS: BP 121/57; PULSE 62; RESP 16; TEMP 97.1
[2023-04-26] MEDS: DOCUSATE SODIUM 100MG CAPSULE PO SCH ×2 (08:17→17:22)
[2023-04-26] MEDS: GABAPENTIN 300MG CAPSULE PO SCH (08:17)
[2023-04-26] MEDS: ALLOPURINOL 300 MG TABLET PO SCH (08:17)
[2023-04-26] MEDS: CARVEDILOL 12.5MG TABLET PO SCH ×2 (08:18→21:27)
[2023-04-26] MEDS: FUROSEMIDE 20MG TABLET PO SCH ×2 (08:18→17:22)
[2023-04-26] MEDS ORDERED: ERGOCALCIFEROL 50000UNITS CAPSULE PO SCH (09:00)
[2023-04-26] MEDS: INSULIN LISPRO 100 UNITS/ML SUBCUT SCH ×7 (09:00→21:32)
[2023-04-26] MEDS: HYDROCODONE/ACETAMINOPHEN 5/325MG TABLET PO PRN ×2 (09:09→23:32)
[2023-04-26] MEDS: LIDOCAINE 5% PATCH TOP SCH (09:16)
[2023-04-26] MEDS: DICLOFENAC SODIUM 1% GEL 50GM TOP SCH ×4 (09:16→21:35)
[2023-04-26 20:00] VITALS: BP 130/62; PULSE 62; RESP 20; TEMP 97.9
[2023-04-26] MEDS: ATORVASTATIN CALCIUM 40MG TABLET PO SCH (21:26)
[2023-04-26] MEDS: FAMOTIDINE 20MG TABLET PO SCH (21:26)
[2023-04-26] MEDS: ENOXAPARIN 150MG/ML SYR SUBCUT SCH (21:35)
[2023-04-26] MEDS: INSULIN GLARGINE 100 UNITS/ML SUBCUT SCH (21:39)
[2023-04-27] VITALS: RESP 12
[2023-04-27] MEDS: IPRATROPIUM/ALBUTEROL 0.5-3(2.5)MG/3ML NEB HHN PRN (00:54)
[2023-04-27 06:12] LABS: POTASSIUM 3.5 mEq/L (3.5-5.1)
[2023-04-27 06:19] LABS: CALCIUM 9.5 mg/dL (8.5-10.1); CREATININE 3.2 mg/dL (0.6-1.3)
[2023-04-27 06:22] LABS: BASOPHILS % 0.5 % (0.0-2.0); EOSINOPHILS % 4.1 % (0.0-5.0); HEMATOCRIT. 29.6 % (42.0-52.0); HEMOGLOBIN. 9.4 g/dL (14.0-18.0); LYMPHOCYTES % 16.3 % (20.0-50.0); MEAN CORPUSCULAR HEMOGLOBIN 27.8 pg (28.0-32.0); MEAN CORPUSCULAR HGB CONC 31.8 g/dL (31.0-37.0); MEAN CORPUSCULAR VOLUME 87.4 fL (80.0-94.0); MEAN PLATELET VOLUME 9.6 fl (7.4-10.4); MONOCYTES % 8.1 % (2.0-8.0); PLATELET 216 x1000/uL (130-400); RED BLOOD CELL COUNT 3.38 mill/uL (4.7-6.1); RED CELL DISTRIBUTION WIDTH 18.6 % (11.6-14.6); WHITE BLOOD COUNT 8.9 x1000/uL (4.5-11.0)
[2023-04-27] MEDS: BLOOD SUGAR DIAGNOSTIC STRIP TEST SCH ×4 (06:27→21:18)
[2023-04-27] MEDS: INSULIN LISPRO 100 UNITS/ML SUBCUT SCH ×7 (07:00→21:44)
[2023-04-27 08:00] VITALS: BP 166/73; PULSE 61; RESP 18; TEMP 96.7
[2023-04-27] MEDS: CARVEDILOL 12.5MG TABLET PO SCH ×2 (08:50→21:17)
[2023-04-27] MEDS: ALLOPURINOL 300 MG TABLET PO SCH (08:50)
[2023-04-27] MEDS: FUROSEMIDE 20MG TABLET PO SCH ×2 (08:50→17:42)
[2023-04-27] MEDS: HYDROCODONE/ACETAMINOPHEN 5/325MG TABLET PO PRN ×2 (08:51→21:37)
[2023-04-27] MEDS: DOCUSATE SODIUM 100MG CAPSULE PO SCH ×2 (08:51→17:42)
[2023-04-27] MEDS: GABAPENTIN 300MG CAPSULE PO SCH (08:51)
[2023-04-27] MEDS: LIDOCAINE 5% PATCH TOP SCH (08:52)
[2023-04-27] MEDS: DICLOFENAC SODIUM 1% GEL 50GM TOP SCH ×4 (08:52→21:18)
[2023-04-27] MEDS ORDERED: ALBUTEROL (0.083%) 2.5MG/3ML NEB HHN SCH (18:00)
[2023-04-27] MEDS ORDERED: BUDESONIDE 0.25MG/2ML NEB HHN SCH ×2 (18:30)
[2023-04-27 20:00] VITALS: BP 120/59; PULSE 61; RESP 20; TEMP 97.7
[2023-04-27] MEDS: BUDESONIDE 0.5MG/2ML NEB HHN SCH (20:34)
[2023-04-27] MEDS: ALBUTEROL (0.083%) 2.5MG/3ML NEB HHN SCH (20:34)
[2023-04-27 20:40] VITALS: PULSE 61; RESP 20; O2SAT 98
[2023-04-27] MEDS: ATORVASTATIN CALCIUM 40MG TABLET PO SCH (21:17)
[2023-04-27] MEDS: ENOXAPARIN 150MG/ML SYR SUBCUT SCH (21:18)
[2023-04-27] MEDS: INSULIN GLARGINE 100 UNITS/ML SUBCUT SCH (21:44)
[2023-04-27 23:30] VITALS: RESP 12
[2023-04-28] MEDS: ALBUTEROL (0.083%) 2.5MG/3ML NEB HHN SCH ×4 (01:35→21:08)
[2023-04-28] MEDS: BLOOD SUGAR DIAGNOSTIC STRIP TEST SCH ×4 (06:51→21:20)
[2023-04-28 07:31] VITALS: PULSE 61; RESP 18; O2SAT 98
[2023-04-28] MEDS: BUDESONIDE 0.5MG/2ML NEB HHN SCH ×2 (07:31→21:08)
[2023-04-28] MEDS: INSULIN LISPRO 100 UNITS/ML SUBCUT SCH ×8 (07:43→21:00)
[2023-04-28 08:00] VITALS: BP 113/52; PULSE 65; RESP 18; TEMP 96.8
[2023-04-28] MEDS: DOCUSATE SODIUM 100MG CAPSULE PO SCH ×2 (08:30→17:45)
[2023-04-28] MEDS: CARVEDILOL 12.5MG TABLET PO SCH ×2 (08:31→21:18)
[2023-04-28] MEDS: FUROSEMIDE 20MG TABLET PO SCH ×2 (08:31→17:45)
[2023-04-28] MEDS: GABAPENTIN 300MG CAPSULE PO SCH (08:32)
[2023-04-28] MEDS: ALLOPURINOL 300 MG TABLET PO SCH (08:32)
[2023-04-28] MEDS: HYDROCODONE/ACETAMINOPHEN 5/325MG TABLET PO PRN ×2 (08:33→21:25)
[2023-04-28] MEDS: LIDOCAINE 5% PATCH TOP SCH (08:46)
[2023-04-28] MEDS: DICLOFENAC SODIUM 1% GEL 50GM TOP SCH ×4 (08:46→21:19)
[2023-04-28] MEDS ORDERED: ONDANSETRON 4MG ODT PO PRN (13:32)
[2023-04-28 13:44] VITALS: PULSE 68; RESP 18; O2SAT 98
[2023-04-28 20:00] VITALS: BP 114/59; PULSE 60; RESP 20; TEMP 97.7
[2023-04-28 21:08] VITALS: PULSE 62; RESP 18; O2SAT 98
[2023-04-28] MEDS: ENOXAPARIN 150MG/ML SYR SUBCUT SCH (21:17)
[2023-04-28] MEDS: FAMOTIDINE 20MG TABLET PO SCH (21:17)
[2023-04-28] MEDS: ATORVASTATIN CALCIUM 40MG TABLET PO SCH (21:17)
[2023-04-28] MEDS: INSULIN GLARGINE 100 UNITS/ML SUBCUT SCH (22:00)
[2023-04-28 22:57] VITALS: RESP 15
[2023-04-29 02:25] VITALS: RESP 12
[2023-04-29] MEDS: ALBUTEROL (0.083%) 2.5MG/3ML NEB HHN SCH ×3 (02:25→22:20)
[2023-04-29] MEDS: BLOOD SUGAR DIAGNOSTIC STRIP TEST SCH ×4 (07:00→21:16)
[2023-04-29] MEDS: INSULIN LISPRO 100 UNITS/ML SUBCUT SCH ×7 (07:11→21:27)
[2023-04-29 07:12] LABS: CALCIUM 9.6 mg/dL (8.7-10.4); POTASSIUM 3.9 mEq/L (3.5-5.1); URIC ACID 4.7 mg/dL (3.7-9.2)
[2023-04-29 07:44] VITALS: PULSE 61; RESP 18; O2SAT 96
[2023-04-29] MEDS: BUDESONIDE 0.5MG/2ML NEB HHN SCH ×2 (07:44→22:18)
[2023-04-29 08:00] VITALS: BP 114/61; PULSE 64; RESP 20; TEMP 96.7
[2023-04-29] MEDS: HYDROCODONE/ACETAMINOPHEN 5/325MG TABLET PO PRN ×2 (09:52→21:13)
[2023-04-29] MEDS: DOCUSATE SODIUM 100MG CAPSULE PO SCH ×2 (09:52→17:36)
[2023-04-29] MEDS: FUROSEMIDE 20MG TABLET PO SCH ×2 (09:53→12:18)
[2023-04-29] MEDS: GABAPENTIN 300MG CAPSULE PO SCH (09:53)
[2023-04-29] MEDS: CARVEDILOL 12.5MG TABLET PO SCH (09:54)
[2023-04-29] MEDS: LIDOCAINE 5% PATCH TOP SCH (09:55)
[2023-04-29] MEDS: OXYMETAZOLINE HCL NASAL SPRAY 15ML BOTHNSTRLS PRN (09:55)
[2023-04-29] MEDS: DICLOFENAC SODIUM 1% GEL 50GM TOP SCH ×4 (09:56→21:17)
[2023-04-29] MEDS: ALLOPURINOL 300 MG TABLET PO SCH (12:18)
[2023-04-29 20:00] VITALS: BP 112/51; PULSE 68; RESP 18; TEMP 98.2
[2023-04-29] MEDS: ATORVASTATIN CALCIUM 40MG TABLET PO SCH (21:11)
[2023-04-29] MEDS: ENOXAPARIN 150MG/ML SYR SUBCUT SCH (21:11)
[2023-04-29] MEDS: CARVEDILOL 6.25 MG TABLET PO SCH (21:12)
[2023-04-29] MEDS: INSULIN GLARGINE 100 UNITS/ML SUBCUT SCH (21:26)
[2023-04-29 22:20] VITALS: PULSE 64; RESP 16; O2SAT 98
[2023-04-29 22:48] VITALS: RESP 15
[2023-04-30] VITALS: RESP 16
[2023-04-30] MEDS: ALBUTEROL (0.083%) 2.5MG/3ML NEB HHN SCH ×2 (03:48→07:44)
[2023-04-30 03:49] VITALS: PULSE 63; RESP 16; O2SAT 97
[2023-04-30] MEDS: BLOOD SUGAR DIAGNOSTIC STRIP TEST SCH ×2 (05:33→11:42)
[2023-04-30] MEDS: OXYMETAZOLINE HCL NASAL SPRAY 15ML BOTHNSTRLS PRN (05:38)
[2023-04-30] MEDS: INSULIN LISPRO 100 UNITS/ML SUBCUT SCH ×4 (07:26→12:26)
[2023-04-30 07:44] VITALS: PULSE 66; RESP 20
[2023-04-30] MEDS: BUDESONIDE 0.5MG/2ML NEB HHN SCH (07:44)
[2023-04-30 08:00] VITALS: BP 118/60; PULSE 65; RESP 20; TEMP 96.7
[2023-04-30] MEDS: CARVEDILOL 6.25 MG TABLET PO SCH (08:26)
[2023-04-30] MEDS: DOCUSATE SODIUM 100MG CAPSULE PO SCH (08:26)
[2023-04-30] MEDS: ALLOPURINOL 300 MG TABLET PO SCH (08:26)
[2023-04-30] MEDS: FUROSEMIDE 20MG TABLET PO SCH (08:26)
[2023-04-30] MEDS: GABAPENTIN 300MG CAPSULE PO SCH (08:26)
[2023-04-30] MEDS: LIDOCAINE 5% PATCH TOP SCH (08:27)
[2023-04-30] MEDS: DICLOFENAC SODIUM 1% GEL 50GM TOP SCH ×2 (09:00→13:00)
[2023-04-30] MEDS ORDERED: FURO20TA4 PO (11:49)
[2023-04-30] MEDS ORDERED: COR6 PO (11:49)
[2023-04-30] MEDS: HYDROCODONE/ACETAMINOPHEN 5/325MG TABLET PO PRN (11:57)
[2023-04-30 12:00] VITALS: BP 118/60; PULSE 65; TEMP 96.7; O2SAT 100
[2023-05-05 04:09] LABS: ANA IFA Positive (.)
== END 2023-04-30 14:20 | disposition home health service (06) | DRG 552 ==
PROVIDERS: ADMIT Internal Medicine Nephrology; ATTEND Internal Medicine Nephrology
PROC: 0R9J3ZZ Drainage of Right Shoulder Joint, Percutaneous Approach (ICD-10-PCS; principal; 2023-04-28)
PROC: 0S9D3ZZ Drainage of Left Knee Joint, Percutaneous Approach (ICD-10-PCS; 2023-04-28)
PROC: 0S9C3ZZ Drainage of Right Knee Joint, Percutaneous Approach (ICD-10-PCS; 2023-04-28)
PROC: 3E0U33Z Introduction of Anti-inflammatory into Joints, Percutaneous Approach (ICD-10-PCS; 2023-04-28)
PROC: 3E0U33Z Introduction of Anti-inflammatory into Joints, Percutaneous Approach (ICD-10-PCS; 2023-04-28)
PROC: 3E0U33Z Introduction of Anti-inflammatory into Joints, Percutaneous Approach (ICD-10-PCS; 2023-04-28)
PROC: 3E0U3BZ Introduction of Anesthetic Agent into Joints, Percutaneous Approach (ICD-10-PCS; 2023-04-28)
PROC: 3E0U3BZ Introduction of Anesthetic Agent into Joints, Percutaneous Approach (ICD-10-PCS; 2023-04-28)
PROC: 3E0U3BZ Introduction of Anesthetic Agent into Joints, Percutaneous Approach (ICD-10-PCS; 2023-04-28)
DX: M48.061 Spinal stenosis, lumbar region without neurogenic claudication (principal); N17.9 Acute kidney failure, unspecified; I13.0 Hypertensive heart and chronic kidney disease with heart failure and stage 1 through stage 4 chronic kidney disease, or unspecified chronic kidney disease; Z68.43 Body mass index [BMI] 50.0-59.9, adult; N18.4 Chronic kidney disease, stage 4 (severe); E46 Unspecified protein-calorie malnutrition; G82.20 Paraplegia, unspecified; M79.604 Pain in right leg; G47.33 Obstructive sleep apnea (adult) (pediatric); I50.9 Heart failure, unspecified; E66.01 Morbid (severe) obesity due to excess calories; E11.22 Type 2 diabetes mellitus with diabetic chronic kidney disease; I48.91 Unspecified atrial fibrillation; M10.9 Gout, unspecified; M17.0 Bilateral primary osteoarthritis of knee; M47.26 Other spondylosis with radiculopathy, lumbar region; J44.9 Chronic obstructive pulmonary disease, unspecified; M51.16 Intervertebral disc disorders with radiculopathy, lumbar region; D63.1 Anemia in chronic kidney disease; D72.829 Elevated white blood cell count, unspecified; E55.9 Vitamin D deficiency, unspecified; E78.5 Hyperlipidemia, unspecified; F39 Unspecified mood [affective] disorder; M75.01 Adhesive capsulitis of right shoulder; R53.81 Other malaise; R42 Dizziness and giddiness; M25.551 Pain in right hip; M25.552 Pain in left hip; R20.0 Anesthesia of skin; R20.2 Paresthesia of skin; Z96.611 Presence of right artificial shoulder joint; Z96.653 Presence of artificial knee joint, bilateral; G57.13 Meralgia paresthetica, bilateral lower limbs; Z95.0 Presence of cardiac pacemaker; Z79.01 Long term (current) use of anticoagulants; Z79.51 Long term (current) use of inhaled steroids; Z79.899 Other long term (current) drug therapy; Z82.49 Family history of ischemic heart disease and other diseases of the circulatory system; Z87.891 Personal history of nicotine dependence; Z91.81 History of falling; Z99.81 Dependence on supplemental oxygen
CPT/HCPCS: 36415; 73030; 73560; 80048; 80053; 82962; 83735; 84100; 84134; 84550; 85025; 86256; 86431; 93970; 94640; 94660; 97110; 97116; 97162; 97166; 97530; 97535; J1650; J1815; J7626